=== PATIENT | female | born 1940 | race Caucasian/White ===

== ENCOUNTER 2017-01-31 00:39 | Observation (INO) | payer MEDICARE, BC ==
[2017-01-31 01:28] LABS: #Eosinphils 0.1 thou/uL (0.0-0.7); #Lymphocytes 0.6 thou/uL (1.20-3.40); #Monocytes 0.7 thou/uL (0.11-0.59); #Neutrophils 9.6 thou/uL (1.40-6.50); %Basophils 0.2 % (0.0-1.0); %Eosinophils 1.3 % (0.0-10.0); %Lymphocytes 5.6 % (21.0-51.0); %Monocytes 6.7 % (0.0-10.0); Hematocrit 36.9 % (36.0-47.0); Mean Platelet Volume 7.2 fL (7.4-10.4); Red Blood Cell (RBC) Count 4.02 mill/uL (4.20-5.40); White Blood Cell (WBC) Count 11.1 thou/uL (4.8-10.8)
[2017-01-31 01:39] LABS: ALT (SGPT) 11 U/L (8-55); AST (SGOT) 15 U/L (5-34); Alkaline Phosphatase 99 U/L (40-150); Anion Gap 14 mmol/L (10-20); BUN (Urea Nitrogen) 38 mg/dL (9.8-20.1); Bilirubin, Total 0.4 mg/dL (0.2-1.2); Calc. Creatinine Clearance 0 mL/min (70-130); Calcium 9.5 mg/dL (7.8-10.44); Carbon Dioxide 22 mmol/L (23-31); Chloride 105 mmol/L (98-107); Estimated GFR-MDRD 24; Globulin 3.2 g/dL (2.4-3.5); Protein, Total 6.9 g/dL (6.0-8.3)
[2017-01-31] MEDS ORDERED: Metoclopramide HCl 10 MG/2 ML VIAL ONE (02:30)
[2017-01-31] MEDS ORDERED: Acetaminophen 500 MG TAB ONE (02:30)
[2017-01-31 02:34] LABS: Troponin I 0.028 ng/mL (< 0.028)
[2017-01-31 04:42] LABS: Bilirubin Negative (Negative); Blood, Urine Negative (Negative); Glucose, Urine (Dipstick) Negative (Negative); Ketone, Urine Negative (Negative); Nitrite Negative (Negative); Protein, Urine (Dipstick) Negative (Neg-Trace); Urobilinogen 0.2 mg/dL (0.2-1.0)
[2017-01-31 04:44] LABS: Bacteria/HPF None Seen HPF (None Seen); Squamous Epithelial 0-3 HPF (0-3); WBC/HPF 21-50 HPF (0-3)
[2017-01-31 05:02] LABS: Hyaline Casts/LPF NONE SEEN LPF (0-3 Hyaline); RBC/HPF 0-3 HPF (0-3)
[2017-01-31] MEDS ORDERED: Ondansetron HCl/PF 4 MG/2 ML Vial IVP PRN (05:53)
[2017-01-31] MEDS ORDERED: Acetaminophen 325 MG TAB PO PRN (05:53)
[2017-01-31] MEDS ORDERED: Ondansetron ODT 4 MG TAB SL PRN (05:53)
[2017-01-31 05:56] VITALS: BMI 22.6
[2017-01-31] MEDS ORDERED: Insulin Regular 300 UNITS/3 ML VIAL SC PRN (08:26)
[2017-01-31] MEDS ORDERED: Dextrose 50% Abboject 50 ML SYRINGE IVP PRN (08:26)
[2017-01-31] MEDS ORDERED: Dextrose 5% in Water 1,000 ML IV PRN (08:26)
--- NOTE | 2017-01-31 08:27 | RAD ---
PORTABLE AP CHEST RADIOGRAPH: Date: 01-31-17 History: Hypertension with nausea and vomiting. Comparison: 05-17-16 FINDINGS: Post-surgical changes related to CABG again noted. Cardiac silhouette is magnified by projection but stable in size. There is mild increase in interstitial densities at the left lung base, probably rela naina to either mild scarring or atelectasis. Linear density is seen at the right lung base, but this f elt to be artifactual related to soft tissue density. Apical pleural and parenchymal scarring is agai n present. Interstitial prominence and vascular congestion on the prior exam does appear less promine nt. IMPRESSION: 1. Atelectasis versus scarring at the left lung base. Otherwise, no acute cardiopulmonary process. POS: [facility]
[2017-01-31] MEDS ORDERED: Potassium Chloride 20 MEQ TAB PO SCH (08:30)
--- NOTE | 2017-01-31 08:58 | HP ---
REASON FOR ADMISSION: Hypertension. HISTORY OF PRESENT ILLNESS: This is a pleasant 76-year-old female with history of multiple medical p roblems to include hypertension, diabetes, and chronic renal insufficiency. She presents with a 1-2 week history of elevated blood pressure. She has been in contact with Nancy Kang' office where her medication had been adjusted accordingly. She states that she will be a wakened at night when she has a headache. She will then take her blood pressure where it will be as high as 200. Then shortly after taking a clonidine it will go down into the 170s. She states she h as been battling this for the last 2 weeks. She has felt extremely tired and weak and also over the last 2 weeks as well. She denies any salt intake as well. She denies any chest, arm or back pain. She also denies any syncopal or near syncopal episodes. She has been quite frustrated as she does no t like feeling bad, especially over the holidays. She came to the hospital after she had a severe he adache with her blood pressure over 200 and began having nausea and vomiting. PAST MEDICAL HISTORY: 1. Diverticulitis. 2. Type 2 diabetes. 3. Gout. 4. Dyslipidemia. 5. Gastroesophageal reflux disease. 6. Chronic obstructive pulmonary disease. 7. History of myocardial infarction in the past. PAST SURGICAL HISTORY: 1. AC bypass in the past. 2. History of cholecystectomy in the past. ALLERGIES: SULFA, CIPRO, LEVAQUIN and PENICILLIN. MEDICATIONS: 1. Januvia 50 mg every day. 2. Spiriva daily. 3. Triamterene/hydrochlorothiazide 37.5/25 one tab daily. 4. Allopurinol 300 mg daily. 5. Norvasc 5 mg b.i.d. 6. Aspirin 325 mg daily. 7. Clonidine 0.1 mg q.6 hours. 8. Stool softener, docusate 100 mg daily. 9. Iron 45 mg daily. 10. Intuniv 2 mg b.i.d. 11. Hydralazine 25 mg t.i.d. 12. DuoNeb 3 mL q.i.d. 13. Prilosec 40 mg every day. 14. Crestor 10 mg every night. SOCIAL HISTORY: She lives in [place]. She smoked for 40 years. She does not drink alcohol. FAMILY HISTORY: Positive for diabetes and hypertension. REVIEW OF SYSTEMS: GENERAL: Admits to weakness, fatigue, no fever or chills. HEENT: No diplopia, amaurosis fugax, tinnitus, sore throat or hoarseness. CARDIOVASCULAR: No chest or arm pain. PULMONARY: No PE, cough or hemoptysis. GASTROINTESTINAL: No GI bleed, constipation or diarrhea. GENITOURINARY: No dysuria, nocturia, oliguria or polyuria. ENDOCRINE: No polyphagia, polydipsia or heat or cold intolerance. MUSCULOSKELETAL: Admits to arthralgias. No lupus or myopathy. NEUROLOGIC: No history of TIA or seizure. All other systems are negative. PHYSICAL EXAMINATION: GENERAL: Pleasant female who appears to be in no acute distress. VITAL SIGNS: Her blood pressure now is 180/80, pulse 60, respiration rate 18. She is afebrile. NECK: Supple with no increased JVP or carotid bruit. Carotid had good upstroke with no thyromegaly. COR: Regular rate and rhythm. No S3, S4. CHEST: Symmetrical with a few scattered wheezing. ABDOMEN: Soft, nontender with normoactive bowel sounds. There is no bruit or organomegaly. EXTREMITIES: No edema or cyanosis. She had palpable pedal pulses. SKIN: There is no evidence of ulcers lesion, or rash. NEUROLOGIC: She has equal hand grasp, toe wiggle bilateral. PSYCHIATRIC: She is alert and oriented to person, place, and time. LABORATORY DATA: Showed a potassium of 3.2, BUN 38, creatinine 2.4. BNP is 1032.9, white blood cell 11.1, H&H 12.3 and 36.9. Chest x-ray is pending. ASSESSMENT: 1. Hypertension. 2. Headache secondary to #1. 3. Chronic obstructive pulmonary disease. 4. Diabetes. 5. Chronic renal insufficiency. 6. Hypokalemia. 7. Multiple medical problems. PLAN: 1. The patient will be admitted where Dr. August will be asked to see the patient in consultation for c hronic renal insufficiency. 2. We will ask Dr. Kang to see the patient in consultation from hypertension. 3. We will follow up with lab in the morning. 4. We will check blood sugars a.c. and at bedtime. 5. We will replace her potassium. All questions answered to the patient's satisfaction.
[2017-01-31] MEDS ORDERED: Alogliptin 6.25 MG TAB PO SCH (09:00)
--- NOTE | 2017-01-31 09:18 | CON ---
DATE OF CONSULTATION: 01/31/2017 SERVICE: Renal Medicine. HISTORY OF PRESENT ILLNESS: Ms. Berman is a 76-year-old white female who was admitted for labile hypertension. The patient tells me the last several days, her blood pressure has been going up and d own. Adjustment with her blood pressure medications have already been done recently by her Cardiolog ist. We are now being consulted for labile hypertension as well as for her chronic renal failure. REVIEW OF SYSTEMS: Positive for headache and nausea. No diarrhea, no syncopal episode, no abdominal pain, no productive cough, no fever or chills, no dysuria. Appetite decreased, energy level is decr eased. Occasional joint pains. No new skin rash, no shortness of breath. No decreased hearing, no hematochezia, no melena, no hematemesis, no hemoptysis, no new skin rash. MEDICATIONS: Includes the following: Hydralazine 25 mg p.o. t.i.d. She is on amlodipine 5 mg p.o. b.i.d., Imdur 30 mg 1 tab daily, Clonidine 0.1 mg tab q.6 hours, Maxzide? PAST MEDICAL HISTORY: 1. 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 2. Longstanding hypertension. 3. Status post diverticulitis. 4. Type 2 diabetes mellitus?. 5. Gout. 6. Hyperlipidemia. 7. COPD. 8. GERD. PAST SURGICAL HISTORY: 1. Status post cardiac catheterization. 2. Status post hysterectomy. 3. Status post CABG. 4. Status post upper GI endoscopy. 5. Status post colonoscopy. 6. Status post open cholecystectomy. 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 Two children. Smoked for 40 years, 1 pack a day. Alcohol none. No IV drug abuse. Status post blood transfusion. FAMILY HISTORY: No family history of ESRD. ALLERGIES: SULFA, CIPRO and LEVAQUIN. TRAUMA: None. IMMUNIZATIONS: Up to date. HOSPITALIZATIONS: Please see past medical history. PHYSICAL EXAMINATION: VITAL SIGNS: Blood pressure is 188/83, heart rate 65, respiratory rate 18, temperature 98.7. GENERAL: Noted to be awake, alert, not in respiratory distress. SKIN: Adequate turgor. HEENT: She has pinkish conjunctivae, anicteric sclerae. NECK: No neck mass, no carotid bruits, no JVD. CHEST: No deformities. LUNGS: Clear breath sounds. No wheezing, no crackles. HEART: Normal sinus rhythm. No murmur, no gallops or rubs. ABDOMEN: Globular, soft, nontender, no masses. EXTREMITIES: No edema, no deformities. MEDICATIONS: Of 01/31/2017 was reviewed. LABORATORY DATA: Of 01/31/2017, white count 11.1, hemoglobin 12.3, sodium 138, potassium 3.2, chlori de 105, carbon dioxide 22, BUN 38, creatinine 2.04, glucose 134, calcium 9.5, AST 15, ALT 11. BNP is 1032. X-RAY FINDINGS: Chest x-ray is currently pending. ASSESSMENT AND PLAN: 1. Labile hypertension. Agree with current blood pressure medications. We will add low dose minoxi dil at 2.5 mg tab at bedtime. Please note, previous workup for hypertension was said to have been ne gatmiguel in the past. 2. Chronic renal failure - creatinine is near baseline. Her creatinine of 2.01 when compared to las t visit at the clinic is only minimally elevated. If needed, we can diurese this patient since I thi nk she would tolerate this. 3. Headache, most likely from labile hypertension. Continue to optimize blood pressure control. For the moment, I agree with current management.
[2017-01-31] MEDS: Ferrous Sulfate 325 MG TAB PO SCH (09:26)
[2017-01-31] MEDS: Amlodipine 5 MG TAB PO SCH ×2 (09:26→20:08)
[2017-01-31] MEDS: Triamterene/Hydrochlorothiazide 37.5 mg/25 mg Tablet PO SCH (09:26)
[2017-01-31] MEDS: Aspirin 325 MG TAB PO SCH (09:26)
[2017-01-31] MEDS: hydrALAZINE 25 MG TAB PO SCH ×3 (09:26→20:09)
[2017-01-31] MEDS: guanFACINE HCl 1 MG TAB PO SCH ×2 (09:27→20:15)
[2017-01-31] MEDS: Docusate 100 MG CAP PO SCH (10:53)
--- NOTE | 2017-01-31 11:45 | CON ---
DATE OF CONSULTATION: 01/31/2017 INDICATION FOR CONSULTATION: This is a 76-year-old female with poorly controlled hypertension and mu ltiple other medical problems. HISTORY: This is a 76-year-old female who was just recently seen by me in the office on 01/23/2017. She has been having recently for the last several months, worsening of her blood pressure problems. We have tried various medications. Her last medication we tried was to increase her nitrates. She was unable to tolerate this due to severe headaches. She presented to the hospital early this derian brown with worsening of her headaches and some blood pressures in the 200s, it becomes worse when she is lying down. She has been seen in the office on several occasions with poorly controlled hypertension . We have tried various medications and to little or no avail. Sometimes the blood pressure will be under much better control during the daytime. It seems to be worse when she lies down at night. At this time, she is not having any chest discomfort, but she says sometimes she does have tightness wh en the blood pressure becomes extremely elevated in the 200 range. At this time, her blood pressure still remains in the 180 systolic and Nephrology has been consulted and Hytrin has already been initi ated. At this time, she denies any significant chest pain or shortness of breath. She has not notic ed any significant changes. She does have a history of renal insufficiency, which has been relativel y stable. Her creatinine is 2.04. Back in 2015 the creatinine was 1.1 and then in May it was 1.3 in 05/2016. In 07/2016 it was 1.7 and then in 12/2016 it was 1.83 and today has increased up to 2.04 . Her BNP was elevated at 1032. Chest x-ray shows only some mild congestion. She was admitted due to poorly controlled hypertension with severe headaches, nausea and vomiting. PAST MEDICAL HISTORY: Rather extensive. She has a history of coronary artery disease and bypass hang stanislav in 2007. She has had history of chronic kidney disease, worsening in the last year. She has a history of colitis, history of type 2 diabetes, history of peptic ulcer disease, history of hypertens ion. She has had a cholecystectomy, a hysterectomy. She has a history of tobacco abuse. She has hi story of COPD, history of myocardial infarction in the past. ALLERGIES: She is allergic to CEFIXIME, SUPRAX, CALCITRIOL, SULFA or any SULFONAMIDE ANTIBIOTICS, HY DROCHLOROTHIAZIDE, LOSARTAN. She has problems with POTASSIUM. She has a history of intolerances to CIPRO, PENICILLIN and LEVAQUIN. MEDICATIONS PRIOR TO ADMISSION: Escitalopram, vitamin D3, benzonatate capsules, Atrovent inhaler, Ve ntolin inhaler and ondansetron 4 mg tablets, Feosol, omeprazole, Januvia, Guanfacine, Trintellix, asp irin 325 mg a day, Spiriva inhaler, ProAir, Crestor 10 mg a day, nitroglycerin sublingual for chest d iscomfort, triamterene/hydrochlorothiazide, alprazolam, Clonidine 0.2 mg b.i.d., amlodipine 5 mg b.i. d., isosorbide mononitrate 30 mg, this was increased up to 60 and now back down to 30 after she compl ained of headaches. SOCIAL HISTORY: Her father of myocardial infarction and mother had bypass surgery. SOCIAL HISTORY: She is . She has children who are alive and well. She smoked in the past, b ut stopped. She has no alcohol use. REVIEW OF SYSTEMS: She denies any new HEENT complaints except for the headaches which have been cons istent with the hypotension. She has no new pulmonary complaints, no GI complaints except for the na usea associated with headaches. No complaints. No musculoskeletal complaints. Sometimes she has leg swelling, but this has now resolved, it usually goes down overnight. She had no other neurologi juan complaints. She denied any hemoptysis or hematemesis. She did complain of some low-grade fever over the last week. PHYSICAL EXAMINATION: GENERAL: Reveals an elderly lady who is in no acute distress. VITAL SIGNS: Blood pressure 180/83. She is afebrile, also heart rate 65 and regular, respiratory ra te 18. HEENT: Unremarkable. Carotid pulses are present. I do not hear any significant bruits. There is n o obvious JVD. CHEST: Clear to auscultation. I did not hear any rales, rhonchi or wheezing. CARDIOVASCULAR: Exam reveals a regular rate and rhythm. She has a systolic murmur over the aortic a savana compatible with likely aortic valve sclerosis. She did not have any heaves, thrills or bruits. She also has a systolic murmur at the apex. ABDOMEN: Soft and nontender. Positive bowel sounds are present. No bruits were noted. No femoral pulses are present. EXTREMITIES: Showed no clubbing, cyanosis or edema. Pedal pulses are present. NEUROLOGIC: The patient appears to be intact. LABORATORY AND DATA: Shows a creatinine 2.04, potassium 3.2. WBC is 11.1, hemoglobin 12.3. Sodium is 138. Her BNP was 1032. Cardiac enzymes are negative. IMPRESSION: 1. Poorly controlled hypertension or hypertensive urgency with associated headaches, nausea, and vom iting. We will ask for assistance of Dr. August. There has been some mention that she had a workup in the past for the hypertension. I do not see any records in the hospital that would indicate that and this may have been done as an outpatient. I will discuss this with Dr. August if he has any informatio n in his office to determine whether or not she has any problems with perhaps renal artery stenosis, whether or not this has been evaluated, whether it may need to be reevaluated or revisited to see whe ther or not she has any renal artery stenosis, but I could not hear any abdominal bruits. 2. Coronary artery disease. This appears to be stable at this time. She denies any significant stephan st discomfort and EKG does not indicate any abnormalities at this time. 3. Diabetes. This is under good control at this time. We will continue the present medications. 4. Chronic kidney disease, will also be dealt with by the message clerk. 5. Chronic obstructive pulmonary disease. She will continue her nebulizer treatments. 6. History of gastroesophageal reflux disease. This appears also to be stable at this time. 7. History of tobacco abuse. She no longer smokes. We will continue to follow the patient with you. We will continue to try to adjust medications. We will leave the hypertension up to the discretion of Dr. August who will deal with her hypertension and h er chronic kidney disease. At this time, her BNP is elevated, most likely this is due to diastolic d ysfunction. I will review her most recent echocardiogram, if one has not been done recently, we may need to reorder an echocardiogram for evaluation of possible diastolic dysfunction and also to evalua te the left ventricular systolic function.
--- NOTE | 2017-01-31 12:01 | CT ---
PRELIMINARY REPORT/[facility]/EMERGENCY AFTER HOURS PROCEDURE: EXAM: CT Head Without Intravenous Contrast CLINICAL HISTORY: 76 years old, female; Pain; Headache; Headache not specified; Patient HX: 76 yo f presents to ed C/O hypertension. Pt states her BP has been out of control for past 3 weeks with significant elevations t o 180s-200s systolic and 100s diastolic. Pt states she is taking half a tab of Clonidine whenever her BP is really elevated per doctor's orders. Pt reports dizziness, headaches, increasing weakness. Als o reports nausea for past couple days which worsened today. States that she started vomiting this binh viviane. Pt tried taking half clonidine tonight which she did not hold down. Denies blurry vision, denie s double vision. Pt states she was recently treated for uti but has continued to have fevers. Family states that she has tried to see multiple doctors for her high BP problem recently. Pt took 2 extra s trength tylenol at 1900 this evening with no relief TECHNIQUE: Axial computed tomography images of the head/brain without intravenous contrast. All CT scans at this facility use one or more dose reduction techniques, viz.: automated exposure control; ma/kV adjustme nt per patient size (including targeted exams where dose is matched to indication; i.e. head); or ite rative reconstruction technique. COMPARISON: No relevant prior studies available. FINDINGS: Brain: Mild volume loss. Chronic right frontal infarction No hemorrhage. Moderate white matter diseas e. No edema. Ventricles: Unremarkable. No ventriculomegaly. Bones/joints: Unremarkable. No acute fracture. Soft tissues: Unremarkable. Sinuses: Unremarkable as visualized. No acute sinusitis. Mastoid air cells: Unremarkable as visualized. No mastoid effusion. IMPRESSION: No intracranial hemorrhage.Please see discussion above. Thank you for allowing us to participate in the care of your patient. Dictated and Authenticated by: Kike Pyle MD 01/31/2017 2:53 AM Central Time ([place] & [place]) FINAL REPORT NONCONTRAST HEAD CT: Date: 01/31/17 COMPARISON: 12/17/15. HISTORY: Headache. TECHNIQUE: Noncontrast head CT is performed from skull base to skull vertex. FINDINGS: This report is in agreement with the preliminary report by Pilar. No acute intracranial process. Age-a ppropriate atrophy. Chronic small vessel ischemic changes are identified. POS: [facility]
[2017-01-31] MEDS: cloNIDine 0.1 MG TAB PO SCH ×2 (13:53→17:11)
[2017-01-31] MEDS ORDERED: Minoxidil 2.5 MG TAB PO SCH (18:45)
[2017-01-31] MEDS: Minoxidil 2.5 MG TAB PO SCH (20:04)
[2017-01-31] MEDS: Rosuvastatin 10 MG TAB PO SCH (20:08)
[2017-01-31] MEDS: Allopurinol 300 MG TAB PO SCH (20:08)
[2017-01-31] MEDS: Alogliptin 6.25 MG TAB PO SCH (20:15)
[2017-02-01] MEDS: cloNIDine 0.1 MG TAB PO SCH ×5 (00:09→23:50)
[2017-02-01 04:25] LABS: #Eosinphils 0.3 thou/uL (0.0-0.7); #Lymphocytes 1.7 thou/uL (1.20-3.40); #Monocytes 0.8 thou/uL (0.11-0.59); #Neutrophils 5.2 thou/uL (1.40-6.50); %Basophils 0.5 % (0.0-1.0); %Eosinophils 4.1 % (0.0-10.0); %Lymphocytes 20.9 % (21.0-51.0); %Monocytes 9.9 % (0.0-10.0); Hematocrit 33.3 % (36.0-47.0); Mean Platelet Volume 6.9 fL (7.4-10.4); Red Blood Cell (RBC) Count 3.63 mill/uL (4.20-5.40); White Blood Cell (WBC) Count 8.1 thou/uL (4.8-10.8)
[2017-02-01 04:39] LABS: ALT (SGPT) 12 U/L (8-55); AST (SGOT) 16 U/L (5-34); Alkaline Phosphatase 80 U/L (40-150); Anion Gap 12 mmol/L (10-20); BUN (Urea Nitrogen) 35 mg/dL (9.8-20.1); Bilirubin, Total 0.3 mg/dL (0.2-1.2); Calc. Creatinine Clearance 26 mL/min (70-130); Calcium 9.1 mg/dL (7.8-10.44); Carbon Dioxide 25 mmol/L (23-31); Chloride 104 mmol/L (98-107); Estimated GFR-MDRD 26; Globulin 2.9 g/dL (2.4-3.5); Protein, Total 6.1 g/dL (6.0-8.3)
--- NOTE | 2017-02-01 08:45 | PRG ---
DATE OF SERVICE: 02/01/2017 SUBJECTIVE: Ms. Berman is a 76-year-old white female who was admitted for labile hypertension. W e were consulted for followup of this hypertension and her chronic renal failure. Creatinine is slig htly improved this morning. I added minoxidil 2.5 mg tab once daily. Previously she has been on thi s medication, but she developed significant swelling. I will try her on the smallest dose. Blood pr essure is acceptable in the 170s. 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 My feeling is that this is the source of her labile hypertension. The plan is simply medical management with this patient. I do not think a nephrectomy is indicated. This morning she is feeling better. Her headache is improved after discontinuation of her Imdur. She voices no new complaints. The patient voices no chest pain or shortness of breath. PHYSICAL EXAMINATION: VITAL SIGNS: Blood pressure is 178/88 with a heart rate of 69, respiratory rate 18, pulse ox 92%. GENERAL: Noted to be awake, alert, comfortable, not in overt distress. SKIN: Adequate turgor. HEENT: Pinkish conjunctivae, anicteric sclerae. NECK: No neck mass, no carotid bruits, no JVD. CHEST: No deformities. LUNGS: Clear breath sounds. No wheezing, no crackles. HEART: Normal sinus rhythm. No murmur, no gallops or rubs. ABDOMEN: Globular, soft, nontender, no masses. EXTREMITIES: No edema, no deformities. MEDICATIONS: 02/01/2017 - Reviewed. LABORATORY: 02/01/2017 - White count 8.1, hemoglobin 10.8, sodium 137, potassium 3.7, chloride 104, carbon dioxide 25, BUN 35, creatinine 1.91, glucose 135, AST 16, ALT 12, albumin 3.2. ASSESSMENT AND PLAN: 1. Labile hypertension, much improved. Continue current antihypertensive regimen. Continue minoxid il. If needed, we can always increase it to a 5 mg tab once a day. Please note that the previous im aging of the kidneys shows left atrophic kidney, which may be the source of the lability of her high blood pressure. 2. Chronic renal failure - stable, secondary to hypertensive nephropathy. No indication for any ivette lytic intervention. Recheck base met and CBC in a.m.
--- NOTE | 2017-02-01 09:55 | PDOC.CTH ---
<Will Kang - Last Filed: 02/01/17 18:10> Cardiology Progress Note - Objective Vital Signs Temp Pulse Resp BP BP Pulse Ox 02/01/17 17:07 178/88 H 02/01/17 15:08 97.5 F L 82 20 176/79 H 94 L 02/01/17 14:58 75 02/01/17 14:52 75 16 96 02/01/17 12:23 178/88 H 02/01/17 10:21 72 16 95 02/01/17 10:00 71 02/01/17 08:47 98.4 F 71 20 02/01/17 08:00 98.4 F 71 20 182/80 H 92 L 02/01/17 06:40 69 18 92 L Admit Weight 140 lb 4.8 oz Weight 141 lb 6.4 oz 01/31/17 02/01/17 02/02/17 06:59 06:59 06:59 Intake Total 1405 500 Output Total 1150 750 Balance 255 -250 - Labs Result Diagrams: 02/01/17 04:03 02/01/17 04:03 Troponin/CKMB CK-MB (CK-2) 0.9 ng/mL (0-6.6) 01/31/17 01:08 Troponin I 0.028 ng/mL (< 0.028) 01/31/17 01:08 - Assessment/Plan Pt. seen and eval. I agree with the A/P by the BEAUTY ARTIST. She is feeling better off the nitrates. renal function is minimally changed. <Danii De Paz - Last Filed: 02/02/17 09:10> Cardiology Progress Note - Subjective The pt seen and examined. No overnight events. No cardiac complaints. No headache since her Imdur was d/xochitl. - Objective Vital Signs Temp Pulse Resp BP BP Pulse Ox 02/01/17 08:47 98.4 F 71 20 02/01/17 08:00 98.4 F 71 20 182/80 H 92 L 02/01/17 06:40 69 18 92 L 02/01/17 05:41 178/88 H 02/01/17 04:15 98.8 F 82 20 178/88 H 92 L 02/01/17 01:12 97 02/01/17 00:58 172/64 H 02/01/17 00:10 172/78 H 02/01/17 00:09 172/78 H 01/31/17 23:30 99.4 F 85 16 192/85 H 93 L Admit Weight 140 lb 4.8 oz Weight 141 lb 6.4 oz 01/31/17 02/01/17 02/02/17 06:59 06:59 06:59 Intake Total 1405 Output Total 1150 Balance 255 - Physical Examination General/Neuro: alert & oriented x3 Neck: no JVD present Lungs: CTA (diminished at bases) Heart: RRR Abdomen: soft Extremities: other: (No edemas) - Labs Result Diagrams: 02/02/17 05:01 02/02/17 05:01 Troponin/CKMB CK-MB (CK-2) 0.9 ng/mL (0-6.6) 01/31/17 01:08 Troponin I 0.028 ng/mL (< 0.028) 01/31/17 01:08 - Assessment/Plan 1. HTN - Stable with current medication; No more headache after Imdur was d/xochitl ; Keep SBP < 177; defer to Rag Sorter 2. CKD 2ndary to Lt atrophic kidney- Cr level slightly improved today; managed by Rag Sorter 3. CAD with Hx of CABG in 2007 - stable 4. DM type 2 - ACHS BG check with SS Insulin 5. COPD - Stable; managed by PCP 6. GERD - stable with Protonix 40mg BID MAR reviewed *From cardiac standpoint, the pt is stable to d/xochitl to home; The pt will f/u with Dr Kang' office within 2-4wks. Thank you very much for cardiology consult request Review of Systems - Review of Systems Constitutional: reports: no symptoms reported EENTM: reports: no symptoms reported Respiratory: reports: no symptoms reported Cardiac (ROS): reports: no symptoms reported ABD/GI: reports: no symptoms reported : reports: no symptoms reported Musculoskeletal: reports: no symptoms reported
[2017-02-01] MEDS: Amlodipine 5 MG TAB PO SCH ×2 (10:00→21:25)
[2017-02-01] MEDS: Triamterene/Hydrochlorothiazide 37.5 mg/25 mg Tablet PO SCH (10:00)
[2017-02-01] MEDS: Cephalexin 250 MG CAP PO SCH ×4 (10:00→21:26)
[2017-02-01] MEDS: Aspirin 325 MG TAB PO SCH (10:00)
[2017-02-01] MEDS: Ferrous Sulfate 325 MG TAB PO SCH (10:00)
[2017-02-01] MEDS: hydrALAZINE 25 MG TAB PO SCH ×3 (10:00→21:27)
[2017-02-01] MEDS: Docusate 100 MG CAP PO SCH (10:01)
[2017-02-01] MEDS: guanFACINE HCl 1 MG TAB PO SCH ×2 (14:57→21:26)
[2017-02-01] MEDS: Allopurinol 300 MG TAB PO SCH (21:24)
[2017-02-01] MEDS: Alogliptin 6.25 MG TAB PO SCH (21:25)
[2017-02-01] MEDS: Rosuvastatin 10 MG TAB PO SCH (21:27)
[2017-02-01] MEDS: Minoxidil 2.5 MG TAB PO SCH (21:27)
[2017-02-02 05:25] LABS: #Basophils 0.1 thou/uL (0.0-0.2); #Eosinphils 0.3 thou/uL (0.0-0.7); #Lymphocytes 1.4 thou/uL (1.20-3.40); #Monocytes 0.7 thou/uL (0.11-0.59); %Basophils 0.8 % (0.0-1.0); %Eosinophils 4.8 % (0.0-10.0); %Lymphocytes 21.3 % (21.0-51.0); %Monocytes 11.1 % (0.0-10.0); Hematocrit 32.2 % (36.0-47.0); Mean Platelet Volume 6.9 fL (7.4-10.4); Red Blood Cell (RBC) Count 3.51 mill/uL (4.20-5.40); White Blood Cell (WBC) Count 6.5 thou/uL (4.8-10.8)
[2017-02-02 05:39] LABS: Anion Gap 9 mmol/L (10-20); BUN (Urea Nitrogen) 34 mg/dL (9.8-20.1); Calc. Creatinine Clearance 26 mL/min (70-130); Calcium 9.5 mg/dL (7.8-10.44); Carbon Dioxide 28 mmol/L (23-31); Chloride 104 mmol/L (98-107); Estimated GFR-MDRD 26
[2017-02-02] MEDS: cloNIDine 0.1 MG TAB PO SCH (05:48)
[2017-02-02 08:24] VITALS: BP 136/65; TEMP 98.9
[2017-02-02] MEDS ORDERED: Potassium Chloride 20 MEQ TAB PO SCH (09:00)
--- NOTE | 2017-02-02 09:05 | PDOC.CTH ---
Cardiology Progress Note - Subjective The pt seen and examined. No overnight events. No cardiac complaints. She feels much better today and ready to go home - Objective Vital Signs Temp Pulse Resp BP BP Pulse Ox 02/02/17 07:44 98.9 F 72 16 136/65 92 L 02/02/17 06:35 94 L 02/02/17 06:33 86 16 94 L 02/02/17 05:48 180/78 H 02/02/17 03:35 98.7 F 68 16 148/68 H 94 L 02/01/17 23:51 98.8 F 75 16 168/75 H 94 L 02/01/17 23:50 168/75 H 02/01/17 21:27 85 198/86 H 02/01/17 21:25 98.5 F 85 20 198/86 H Admit Weight 140 lb 4.8 oz Weight 141 lb 10.352 oz 02/01/17 02/02/17 02/03/17 06:59 06:59 06:59 Intake Total 1405 500 Output Total 1150 1350 Balance 255 -850 - Physical Examination General/Neuro: alert & oriented x3 Neck: no JVD present Lungs: CTA Heart: RRR Abdomen: soft Extremities: other: (No edemas) - Labs Result Diagrams: 02/02/17 05:01 02/02/17 05:01 Troponin/CKMB CK-MB (CK-2) 0.9 ng/mL (0-6.6) 01/31/17 01:08 Troponin I 0.028 ng/mL (< 0.028) 01/31/17 01:08 - Assessment/Plan 1. HTN - Well controlled with current medication; No more headache after Imdur was d/xochitl; Keep SBP < 177; defer to [facility] Inspector 2. 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 CAD with Hx of CABG in 2007 - stable 4. DM type 2 - ACHS BG check with SS Insulin 5. COPD - Stable; managed by PCP 6. GERD - stable with Protonix 40mg BID MAR reviewed Review of Systems - Review of Systems Constitutional: reports: no symptoms reported EENTM: reports: no symptoms reported Respiratory: reports: no symptoms reported Cardiac (ROS): reports: no symptoms reported ABD/GI: reports: no symptoms reported : reports: no symptoms reported Musculoskeletal: reports: no symptoms reported Skin: reports: no symptoms reported
--- NOTE | 2017-02-02 09:12 | PRG ---
DATE OF SERVICE: 02/02/2017 SUBJECTIVE: Ms. Berman is a 76-year-old white female with chronic renal failure and labile hypert ension. She was seen by the Renal Service for her acute kidney injury and labile hypertension. I di d discuss the case at length with the patient about possible etiology of the labile hypertension. Pl ease note she has a left atrophic kidney. In addition, during this hospitalization, we start minoxid il 2.5 mg tab once a day. Currently, she is asymptomatic. She denies any chest pain or shortness of breath. OBJECTIVE: VITAL SIGNS: Blood pressure 136/65, heart rate 72, respiratory rate 16, temperature 98.9, and pulse ox 92%. GENERAL: Noted to be awake, alert, supine, comfortable, not in distress. SKIN: Adequate turgor. HEENT: Pinkish conjunctivae, anicteric sclerae. NECK: No neck mass, no carotid bruits, no JVD. CHEST: No deformities. LUNGS: Clear breath sounds. No wheezing, no crackles. HEART: Normal sinus rhythm. No murmur, no gallops, no rubs. ABDOMEN: Globular, soft, nontender. No masses. EXTREMITIES: No edema. MEDICATIONS: 02/02/2017 was reviewed. LABORATORY DATA: On 02/02/2017 - Hemoglobin 10.6. Sodium 138, potassium 3.4, chloride 104, carbon d ioxide 28, BUN 34, creatinine 1.87. GFR 26 mL per minute. Calcium 9.5. ASSESSMENT AND PLAN: 1. Labile hypertension, much improved. Continue current antihypertensive regimen including minoxidi l. 2. Acute kidney injury/chronic renal failure, stabilizing renal function. Creatinine noted at 1.87, which is at baseline. She is currently at stage 4 chronic renal failure. I agree with current huma babcock. I agree for discharge anytime. The patient will follow up at the [facility].
[2017-02-02] MEDS: Triamterene/Hydrochlorothiazide 37.5 mg/25 mg Tablet PO SCH (09:28)
[2017-02-02] MEDS: guanFACINE HCl 1 MG TAB PO SCH (09:28)
[2017-02-02] MEDS: Aspirin 325 MG TAB PO SCH (09:29)
[2017-02-02] MEDS: Docusate 100 MG CAP PO SCH (09:29)
[2017-02-02] MEDS: Amlodipine 5 MG TAB PO SCH (09:29)
[2017-02-02] MEDS: Cephalexin 250 MG CAP PO SCH (09:29)
[2017-02-02] MEDS: hydrALAZINE 25 MG TAB PO SCH (09:29)
[2017-02-02] MEDS: Ferrous Sulfate 325 MG TAB PO SCH (09:30)
--- NOTE | 2017-02-02 13:04 | DIS ---
FINAL DIAGNOSES: 1. Hypertension urgency. 2. Intractable migraine secondary to above. 3. Chronic obstructive pulmonary disease. 4. Chronic renal insufficiency. 5. Anxiety disorder. COMPLICATIONS: None. PROCEDURES: None. CONSULTANTS: 1. Dr. August 2. Dr. Kang. HOSPITAL COURSE: This is a pleasant female who has a history of multiple medical problems as indicat ed in the H&P. She presents with over a 1 week history of elevated blood pressure as high as 200 at home. She woke up with a migraine headache and checked her blood pressure and it did remain high 1 e vening. Therefore, presented to the hospital for further evaluation and treatment. She was seen by a team of consultants, Dr. August and Dr. Kang. Her home medications were adjusted accordingly. The marcy oneal also had a chest x-ray which was unremarkable. She had a brain CT upon arrival to the emergenc y room that showed no intracranial bleed, otherwise unremarkable. The patient did have some dysuria also, but a urine culture was negative for any sort of bacteria. The patient also had a MRA of her k idneys ordered; however, that was not done for some reason. The patient also had to be started on mi noxidil as her blood pressure remained high during the hospitalization. After giving the minoxidil, her blood pressure did come down beautifully from 180s to the 130s. The patient's potassium had to b e replenished during the hospitalization from 3 at the lowest. Her blood sugar remained anywhere fro m 130-147. Her white blood cell count was minimally elevated at 11.1, upon dismissal it was 6.5. He r H&H was 10.6 and 32.2, her platelet count was normal. The patient's hospital course was unremarkab le as her blood pressure was well controlled. Her anxiety was good. Her potassium was replenished. She had no more headache. She did want to go home and she would do the MRA if not done inpatient. DISCHARGE MEDICATIONS: 1. Hydralazine 50 mg t.i.d. 2. Minoxidil 2.5 mg every day. 3. Tenex 2 mg b.i.d. 4. Allopurinol 300 mg daily. 5. Norvasc 5 mg b.i.d. 6. Aspirin 325 mg daily. 7. Clonidine 0.1 mg q.6h. p.r.n. 8. Stool softener daily. 9. Iron 140 mg every day. 10. Intuniv 2 mg b.i.d. 11. Albuterol DuoNebs t.i.d. 12. Prilosec 40 mg b.i.d. 13. Crestor 10 mg every day. 14. Januvia 50 mg every day. 15. Spiriva inhaler b.i.d. 16. Triamterene/hydrochlorothiazide 37.5/25 every day. FOLLOWUP: She will follow up with Chaya or Dr. Hartman in 1 week. She will also follow up with ot er consultants as indicated. The patient's diet will be a renal/controlled fat/diabetic diet. Her activities were as tolerated. She will also continue checking her blood pressure at home and keeping a daily log and bring that in when she came to the office.
== END 2017-02-02 10:47 | disposition home or self-care (01) ==
LOC: ERS 00:39 → 2SW 04:01
PROVIDERS: ADMIT Specialist; ATTEND Specialist
DX: I16.0 Hypertensive urgency (principal); E11.22 Type 2 diabetes mellitus with diabetic chronic kidney disease; I12.9 Hypertensive chronic kidney disease with stage 1 through stage 4 chronic kidney disease, or unspecified chronic kidney disease; N18.2 Chronic kidney disease, stage 2 (mild); I25.10 Atherosclerotic heart disease of native coronary artery without angina pectoris; J44.9 Chronic obstructive pulmonary disease, unspecified; K21.9 Gastro-esophageal reflux disease without esophagitis; E87.6 Hypokalemia; M10.9 Gout, unspecified; E78.5 Hyperlipidemia, unspecified; I25.2 Old myocardial infarction; F41.9 Anxiety disorder, unspecified; G43.819 Other migraine, intractable, without status migrainosus; Z79.82 Long term (current) use of aspirin; Z79.84 Long term (current) use of oral hypoglycemic drugs; Z79.899 Other long term (current) drug therapy; Z88.1 Allergy status to other antibiotic agents; Z88.2 Allergy status to sulfonamides; Z88.0 Allergy status to penicillin; Z88.5 Allergy status to narcotic agent; Z95.1 Presence of aortocoronary bypass graft; Z90.710 Acquired absence of both cervix and uterus; Z90.49 Acquired absence of other specified parts of digestive tract; Z98.890 Other specified postprocedural states; Z87.11 Personal history of peptic ulcer disease; Z87.891 Personal history of nicotine dependence
CPT/HCPCS: 70450; 71010; 80048; 80053 ×2; 82553; 82962 ×3; 83880; 84484; 85025 ×3; 87086; 94640 ×4; 94760; 96365; 99285; G0378 ×2; 36415; 36416; 81003; 81015; J2765; J7620

== ENCOUNTER 2017-03-09 15:00 | Outpatient (CLI) | payer MEDICARE, BC ==
--- NOTE | 2017-03-09 15:44 | ULT ---
BILATERAL LOWER EXTREMITY VENOUS DOPPLER ULTRASOUND 03/09/17 HISTORY: Bilateral lower extremity edema and pain. TECHNIQUE: Nathan scale ultrasound with color flow and spectral doppler imaging of the deep venous systems of the lower extremities was performed bilaterally. FINDINGS: There is good flow, compression, and augmentation noted in the common femoral, femoral, deep femoral, popliteal, posterior tibial and greater saphenous veins on either side. IMPRESSION: No evidence of DVT in either lower extremity. POS: [facility]
== END 2017-03-09 15:01 | disposition home or self-care (01) ==
LOC: ULT 15:00
PROVIDERS: ATTEND Internal Medicine Nephrology
DX: M79.661 Pain in right lower leg (principal); M79.662 Pain in left lower leg; N18.9 Chronic kidney disease, unspecified
CPT/HCPCS: 36415; 80048; 93970

== ENCOUNTER 2017-05-13 08:52 | Inpatient (IN) | payer MEDICARE, BC ==
[2017-05-13 09:22] LABS: #Eosinphils 0.1 thou/uL (0.0-0.7); #Lymphocytes 0.8 thou/uL (1.20-3.40); #Monocytes 0.5 thou/uL (0.11-0.59); #Neutrophils 5.9 thou/uL (1.40-6.50); %Basophils 0.2 % (0.0-1.0); %Eosinophils 1.6 % (0.0-10.0); %Lymphocytes 10.8 % (21.0-51.0); %Monocytes 6.3 % (0.0-10.0); %Neutrophils 81.1 % (42.0-75.0); Hemoglobin 10.8 g/dL (12.0-16.0); Mean Corpuscular HGB CONC 32.6 g/dL (32.0-36.0); Mean Corpuscular Hemoglobin 28.5 pg (27.0-31.0); Mean Corpuscular Volume 87.4 fl (81.0-99.0); Mean Platelet Volume 7.7 fL (7.4-10.4); Platelet Count 197 thou/uL (130-400); Red Blood Cell (RBC) Count 3.77 mill/uL (4.20-5.40); White Blood Cell (WBC) Count 7.2 thou/uL (4.8-10.8)
[2017-05-13 09:38] LABS: ALT (SGPT) 28 U/L (8-55); AST (SGOT) 53 U/L (5-34); Alkaline Phosphatase 148 U/L (40-150); Anion Gap 15 mmol/L (10-20); BUN (Urea Nitrogen) 38 mg/dL (9.8-20.1); Bilirubin, Total 0.6 mg/dL (0.2-1.2); CK (CPK) 38 U/L (29-168); Calc. Creatinine Clearance 0 mL/min (70-130); Calcium 9.5 mg/dL (7.8-10.44); Carbon Dioxide 24 mmol/L (23-31); Chloride 99 mmol/L (98-107); Estimated GFR-MDRD 19; Globulin 3.2 g/dL (2.4-3.5); Glucose 128 mg/dL (83-110); Potassium 3.1 mmol/L (3.5-5.1); Protein, Total 7.2 g/dL (6.0-8.3); Sodium 135 mmol/L (136-145)
[2017-05-13 09:40] LABS: CKMB 1.6 ng/mL (0-6.6); Troponin I 0.085 ng/mL (< 0.028)
[2017-05-13] MEDS ORDERED: Triamterene/Hydrochlorothiazide 37.5 mg/25 mg Tablet PO SCH (10:45)
[2017-05-13] MEDS ORDERED: guanFACINE HCl 1 MG TAB PO SCH (10:45)
--- NOTE | 2017-05-13 11:16 | RAD ---
PORTABLE CHEST: Date: 05/13/17 PROVIDED CLINICAL HISTORY: Palpitations. FINDINGS: Comparison with 01/31/17. Cardiac and mediastinal silhouette is unchanged in appearance. Median sternotomy changes are seen. No focal consolidation, pleural fluid, or pneumothorax apparent. IMPRESSION: No evidence for an acute cardiopulmonary process. POS: [facility]
[2017-05-13] MEDS ORDERED: Acetaminophen 325 MG TAB PO PRN (12:47)
[2017-05-13 12:55] VITALS: BMI 21.4
[2017-05-13 13:03] LABS: Troponin I 0.105 ng/mL (< 0.028)
[2017-05-13] MEDS ORDERED: Furosemide 20 MG TAB PO PRN (13:41)
[2017-05-13] MEDS ORDERED: Ondansetron ODT 4 MG TAB PO PRN (13:44)
[2017-05-13] MEDS ORDERED: hydrALAZINE 25 MG TAB PO SCH (15:00)
[2017-05-13] MEDS: Docusate 100 MG CAP PO SCH (15:04)
[2017-05-13] MEDS: guanFACINE HCl 1 MG TAB PO SCH (15:04)
[2017-05-13] MEDS ORDERED: cloNIDine 0.1 MG TAB PO SCH (15:15)
[2017-05-13 16:29] LABS: Troponin I 0.097 ng/mL (< 0.028)
[2017-05-13] MEDS ORDERED: Zolpidem Tartrate 5 MG TAB PO PRN (19:59)
[2017-05-13] MEDS ORDERED: Minoxidil 2.5 MG TAB PO SCH (20:30)
[2017-05-13] MEDS ORDERED: Amlodipine 5 MG TAB PO SCH (20:30)
[2017-05-13] MEDS: 1/2 NS w/KCL 20 mEq 1,000 ML IV SCH (20:58)
[2017-05-13] MEDS ORDERED: Mirtazapine 30 MG TAB PO SCH (21:00)
[2017-05-13] MEDS: cloNIDine 0.1 MG TAB PO SCH (21:01)
[2017-05-13] MEDS: Famotidine 20 MG TAB PO SCH (21:01)
[2017-05-13] MEDS: Rosuvastatin 10 MG TAB PO SCH (21:01)
[2017-05-13] MEDS: hydrALAZINE 25 MG TAB PO SCH (21:01)
[2017-05-13] MEDS: Potassium Chloride 20 MEQ TAB PO SCH (21:03)
[2017-05-13] MEDS ORDERED: Amlodipine 10 MG TAB PO SCH (22:00)
--- NOTE | 2017-05-13 22:00 | HP ---
DATE OF OBSERVATION BEGAN: 05/13/2017 CHIEF COMPLAINT: On admission was palpitations and hypertensive urgency with recent epistaxis. HISTORY OF PRESENT ILLNESS: Patient is a 76-year-old female, who on the day previous had had elevate d blood pressure over 200. It began as epistaxis that could not be stopped. She said "I had never s een so much blood" and went to the emergency room in [place]. They could not get the bleeding t o stop either and arranged for her to be seen by Dr. Patel in his clinic. He was able to do rhinosc opy and cauterized the bleeding. However, since that time she has been having palpitations and her h ome blood pressure readings have been as high as 228/100. She denies chest pain or shortness of niki th. She has had hypertension for 10 years. She has a history of coronary artery disease with an AK 10 years ago. She is very anxious and states that, last night in particular, she could not get any s leep. She did take 0.25 of Xanax, it was ineffective; clonidine, which normally makes her very sleep y, she took 0.2 mg and that did not help her sleep as well. At this point, she got scared when the p alpitations persisted that it may mean something concerning her heart, which her heart rate is normal ly in the 50s and it was 94 at that time pounding. She came to [facility] Room for furth er evaluation. There the troponins were indeterminate, but due to her complex history, it was electe d to put her on observation for further evaluation. REVIEW OF SYSTEMS: Constitutional: She denies any fever or chills and she had felt particularly tir ed. HEENT: Eyes: Denies pain, discharge, or photophobia. ENT: Has had the recent epistaxis menti oned above, but otherwise no other cold symptoms, sinus pain, or nasal discharge. Cardiovascular: D enies chest pain, but admits to palpitations that have been so strong and last night has made her fea rful. Respiratory: She denies shortness of breath, cough, wheezing. GI: Denies nausea, vomiting, diarrhea. : Denies dysuria or blood in urine. Musculoskeletal: Has arthritis, but other than mi ld joint stiffness, denies swelling or pain. Skin: No acute rashes or lesions. Neurologic: She mccarty s had no trouble with dizziness, her mentation, or headaches. Psychiatrically, she has had recent in somnia that has made her anxiety worse. PAST MEDICAL HISTORY: As mentioned above, has had congestive heart failure with an echo done in [place] showing diastolic heart failure. She has renal dysfunction and sees Dr. August for that. She has lala quent kidney infections. She has diabetes, type 2; hyperlipidemia; hypertension; COPD; gout; GERD; a nd diverticulitis. PAST SURGICAL HISTORY: Includes an AC bypass in the past, cholecystectomy, hysterectomy, her CABG wa s 4 vessels. PAST PSYCHIATRIC HISTORY: As mentioned, has anxiety and depression. SOCIAL HISTORY: She is , continues to work, was a long-term smoker. Lives at home. ALLERGIES: CIPRO causing hives, LEVAQUIN causing hives, SULFA causing hives. MEDICATIONS: On admission include an aspirin 81 mg daily, clonidine 0.1 mg spaced out because of sed ation 4 times a day, Crestor 10 mg at bedtime, hydralazine 50 mg t.i.d., iron supplementation for ane harry, sodium docusate for constipation, omeprazole 40 mg daily for GERD, triamterene and hydrochloroth iazide for blood pressure, guanfacine 2 mg daily for blood pressure, Zantac additional treatment for GERD, Januvia 25 mg for diabetes, and minoxidil 2.5 mg for hypertension. She also does DuoNeb treatm ents p.r.n. for COPD. PHYSICAL EXAMINATION: VITAL SIGNS: On admission, blood pressure 208/87, pulse 88, respirations 18, temperature is 98.4. P ain is 0. GENERAL: This is an anxious alert female, cooperative. HEENT: Normocephalic and atraumatic. Pupils are equal, round, reactive to light with arcus senilis bilaterally. TMs, nares, pharynx clear and moist. NECK: Supple, trachea midline, no mass, no tenderness, no bruits. CHEST: Shows diminished breath sounds throughout. BREAST EXAM: Deferred. HEART: Regular rate and rhythm with holosystolic murmur. ABDOMEN: Soft, nontender, without organomegaly. GENITOURINARY: Deferred. EXTREMITIES: With muscular wasting generally upper and lower, but normal range of motion. No clubbi ng, cyanosis, or edema. SKIN: With poor turgor, but no acute rashes. NEUROLOGIC: Cranial nerves are intact. Gait and cerebral function are intact. Sensory exam is inta ct. Mental status significant for anxiety. LABORATORY AND X-RAY FINDINGS: The lab work on admission showed WBC 7.2, hemoglobin 10.8, hematocrit 32.9 with platelets at 197. Her sodium 135, potassium 3.1, chloride 99, CO2 of 24, BUN 38, creatini ne 2.52 with a GFR of 19, glucose 128, AST elevated at 83, troponins all elevated in the indeterminat e range. TSH 2.9. Liver functions normal. Chest x-ray shows no evidence of an acute coronary proce ss. ASSESSMENT: 1. Palpitations. 2. Hypertensive urgency. 3. Diastolic cardiac failure. 4. Hyperkalemia. 5. Renal insufficiency. 6. Non-insulin dependent diabetes. PLAN: Will be to minimize nephrotoxic drugs, maximize blood pressure control, having for systolic un lawson 150. We will get consultation on both her heart and her kidneys. We will try to select medicati ons to better control her blood pressure. We will serially reassess her and treat her insomnia and a nxiety as it arises. It could be the anxiety was part of her palpitations.
[2017-05-14] MEDS: cloNIDine 0.1 MG TAB PO SCH ×5 (00:29→23:42)
[2017-05-14 04:48] LABS: #Eosinphils 0.3 thou/uL (0.0-0.7); #Lymphocytes 1.4 thou/uL (1.20-3.40); #Monocytes 0.6 thou/uL (0.11-0.59); #Neutrophils 3.8 thou/uL (1.40-6.50); %Basophils 0.2 % (0.0-1.0); %Eosinophils 5.7 % (0.0-10.0); %Lymphocytes 22.5 % (21.0-51.0); %Monocytes 9.2 % (0.0-10.0); %Neutrophils 62.5 % (42.0-75.0); Hemoglobin 9.1 g/dL (12.0-16.0); Mean Corpuscular HGB CONC 33.3 g/dL (32.0-36.0); Mean Corpuscular Hemoglobin 29.4 pg (27.0-31.0); Mean Corpuscular Volume 88.1 fl (81.0-99.0); Mean Platelet Volume 8.1 fL (7.4-10.4); Platelet Count 180 thou/uL (130-400); RBC Distribution Width 13.8 % (11.5-14.5)
[2017-05-14 04:57] LABS: Hemoglobin A1c 4.9 % (4.0-6.0)
[2017-05-14 05:03] LABS: Anion Gap 11 mmol/L (10-20); BUN (Urea Nitrogen) 35 mg/dL (9.8-20.1); Calc. Creatinine Clearance 21 mL/min (70-130); Calcium 8.9 mg/dL (7.8-10.44); Carbon Dioxide 24 mmol/L (23-31); Cardiac Risk 4.8 (Less than 4.5); Chloride 102 mmol/L (98-107); Cholesterol 110 mg/dl (< 200 Desired); Estimated GFR-MDRD 23; Glucose 110 mg/dL (83-110); HDL Cholesterol 23 mg/dL (>60 Neg Risk); LDL Cholesterol, Calculated 67 mg/dL; Potassium 3.3 mmol/L (3.5-5.1); Sodium 134 mmol/L (136-145); Triglycerides 102 mg/dL (Less than 150)
[2017-05-14] MEDS: hydrALAZINE 25 MG TAB PO SCH ×3 (08:18→20:47)
[2017-05-14] MEDS: Ferrous Sulfate 325 MG TAB PO SCH (08:19)
[2017-05-14] MEDS: Amlodipine 10 MG TAB PO SCH ×2 (08:19→20:46)
[2017-05-14] MEDS: Aspirin 81 mg Enteric Coated Tablet PO SCH (08:19)
[2017-05-14] MEDS: Potassium Chloride 20 MEQ TAB PO SCH ×2 (08:19→20:44)
[2017-05-14] MEDS: Alogliptin 6.25 MG TAB PO SCH (08:20)
[2017-05-14] MEDS: guanFACINE HCl 1 MG TAB PO SCH ×2 (08:20→14:45)
[2017-05-14] MEDS ORDERED: Triamterene/Hydrochlorothiazide 37.5 mg/25 mg Tablet PO SCH (09:00)
[2017-05-14] MEDS ORDERED: Aspirin 325 mg Enteric Coated Tablet PO SCH ×2 (09:00)
[2017-05-14] MEDS ORDERED: Zolpidem Tartrate 5 MG TAB PO PRN (12:30)
--- NOTE | 2017-05-14 12:45 | CON ---
DATE OF CONSULTATION: 05/14/2017 HISTORY OF PRESENT ILLNESS: Ms. Berman is a 76-year-old white female who was admitted for labile hypertension. She also was complaining initially of palpitations. Of interest, the patient was star naina back on her minoxidil at 2.5 mg tab once a day several days ago due to labile hypertension. The patient also tells me that she has had episode of epistaxis. She was evaluated by ENT. No catheteri zation was done by given Afrin nasal spray. We are being consulted for her chronic renal failure as well as labile hypertension. REVIEW OF SYSTEMS: No chest pain. Positive for palpitation, no shortness of breath, no nausea, no v omiting, no diarrhea, no constipation, no syncopal episode, no fever or chills, no sore throat, no he adache, no diplopia, history of epistaxis, no diarrhea, no gross hematuria, no dysuria, no abdominal pain. Appetite and energy level is fair. MEDICATIONS: Patient is currently on the following; half normal saline plus 20 mEq 75 mL per hour, a cetaminophen p.r.n., amlodipine 10 mg tab b.i.d., alogliptin 12.5 mg once a day, aspirin 81 mg once a day, clonidine 0.1 mg q.i.d., Colace 200 mg b.i.d., Pepcid 20 mg tab once a day, ferrous sulfate 325 mg once a day, furosemide 20 mg b.i.d. as needed, hydralazine 100 mg p.o. t.i.d., Remeron 30 mg tab at bedtime, status post Ambien, KCl 20 mEq b.i.d., rosuvastatin 10 mg at bedtime. PAST MEDICAL HISTORY: 1. Labile hypertension. 2. 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 3. Status post diverticulitis. 4. Type 2 diabetes mellitus. 5. Gout. 6. Hyperlipidemia. 7. COPD. 8. GERD. PAST SURGICAL HISTORY: 1. Status post open cholecystectomy. 2. Status post cardiac catheterization. 3. Status post colonoscopy. 4. Status post hysterectomy. 5. Status post CABG. 6. Status post upper GI endoscopy. 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 Education high school. Smoked for 40 years, 1 pack a day. No IV drug abuse. Status post blood transfusion. FAMILY HISTORY: No family history of ESRD. ALLERGIES: SULFA, CIPRO, and LEVAQUIN. TRAUMA: None. IMMUNIZATIONS: Up to date. HOSPITALIZATIONS: Please see past medical history. PHYSICAL EXAMINATION: VITAL SIGNS: Blood pressure is currently 189/86 with heart rate of 70, pulse ox 94%, respiratory rat e 15, and temperature 98.9. GENERAL: Noted to be awake, alert, comfortable, not in distress. SKIN: Adequate turgor. HEENT: She has pinkish conjunctivae, anicteric sclerae. NECK: No neck mass, no carotid bruits, no JVD. CHEST: No deformities. LUNGS: Clear breath sounds, no wheezing, no crackles. HEART: Normal sinus rhythm. No murmurs, no gallops, no rubs. ABDOMEN: Globular, soft, nontender, no masses. EXTREMITIES: No edema, no deformities. LABORATORY DATA: Laboratories of 05/14/2017, white count 6, hemoglobin 9.1. Sodium 134, potassium 3 .3, chloride 102, carbon dioxide 24, BUN 35, creatinine 2.13, glucose is 110, calcium 8.9. Further r eview of her serum creatinine shows the following; on 05/13/2017 2.52. On 03/14/2017, creatinine 1.9. ASSESSMENT AND PLAN: 1. Acute kidney injury on top of her chronic renal failure - consider hemodynamically mediated renal dysfunction. Please note that patient has been on diuretics and this has been discontinued. At the same time, she is on gentle volume repletion to help improve the renal function. 2. Please note that the triamterene has been stopped. 3. Labile hypertension. We will add Aldomet 250 mg p.o. t.i.d. I did discuss the possible side eff ects with the patient - such as sedation. In addition, we will continue with her current antihyperte nsive regimen. Agree to hold off the minoxidil. I feel that this is causing the palpitations. 4. Agree also to increase hydralazine to 100 mg p.o. t.i.d. If needed, I can consider starting the patient on spironolactone at 25 mg p.o. daily. For the moment, we will hold this off. We will reeva luate in a.m. 5. Chronic renal failure - this is most likely from hypertensive nephropathy. There is no indication for any dialytic intervention. Agree with current management.
[2017-05-14] MEDS: 1/2 NS w/KCL 20 mEq 1,000 ML IV SCH (12:48)
--- NOTE | 2017-05-14 14:05 | CON ---
DATE OF CONSULTATION: 05/14/2017 REASON FOR CONSULTATION: Shortness of breath and elevated blood pressure. REFERRING PROVIDER: Amando Hartman M.D. HISTORY OF PRESENT ILLNESS: Ms. Berman is a very pleasant 76-year-old woman who is a patient of Kay Kang. Ms. Berman recently presented with hypertension, shortness of breath, and epistaxis . This is the first time she has had epistaxis. Blood pressure in the 190s to 200s. She states thi s is not a new issue. She has been on multiple medications in the past. Epistaxis was felt to be ne w. There has been some dietary indiscretion. PAST MEDICAL HISTORY: Hypertension, hypertensive nephropathy, diabetes mellitus, single kidney, CAD status bypass surgery, hysterectomy, colonoscopy, upper GI. SOCIAL HISTORY: She is currently retired. No current tobacco use. There is dietary indiscretion. FAMILY HISTORY: Negative for CAD. HOME MEDICATIONS: Januvia, DuoNeb, Norvasc, Spiriva, Zofran, aspirin, ranitidine, omeprazole, stool softener, triamterene/hydrochlorothiazide, Tenex, Crestor, Catapres, Lasix, minoxidil, and alprazolam . PHYSICAL EXAMINATION: GENERAL: Patient is a pleasant female who is in no acute distress. The patient appears her stated a ge. VITAL SIGNS: Blood pressure 179/80, pulse 82, temperature 98.8. NEUROLOGIC: The patient is alert and oriented times 3 with no focal neurologic deficits. HEENT: Sclerae without icterus. Mouth has moist mucous membranes with normal pallor. NECK: No JVD. Carotid upstroke brisk. No bruits bilaterally. LUNGS: Clear to auscultation with unlabored respirations. BACK: No scoliosis or kyphosis. CARDIAC: Regular rate and rhythm with normal S1 and S2. No S3 or S4 noted. No significant rubs, mu rmurs, thrills, or gallops noted throughout the precordium. PMI is not displaced. There is no eric ternal heave. ABDOMEN: Soft, nontender, nondistended. No peritoneal signs present. No hepatosplenomegaly. No ab normal striae. EXTREMITIES: 2+ femoral and 2+ dorsalis pedis pulses. No cyanosis, clubbing, or edema. SKIN: No gross abnormalities. PERTINENT LABORATORY DATA: Hemoglobin 9.1, creatinine 2.1. IMPRESSION: 1. Malignant hypertension. 2. Single kidney. 3. Coronary artery disease. 4. Status post bypass surgery. RECOMMENDATIONS: Ms. Berman is currently on clonidine, Norvasc, and Aldomet has recently been sta rted by Dr. August. Dietary indiscretion certainly part of the issue. She may also have renal artery s tenosis as the etiology. We will discuss with Dr. Anil August. We will see how she responds to Aldomet . We would consider renal angiography after discussion with Dr. Anil August and if she continues to ashley l medical therapy. Would certainly be at increased risk of contrast nephropathy. I did discuss this with the patient.
[2017-05-14] MEDS: Docusate 100 MG CAP PO SCH (14:45)
[2017-05-14] MEDS: busPIRone HCl 5 MG TAB PO SCH ×2 (14:47→20:44)
--- NOTE | 2017-05-14 15:53 | ULT ---
BILATERAL RENAL ULTRASOUND: Date: 05/14/17 PROVIDED CLINICAL HISTORY: Renal insufficiency. FINDINGS: Right kidney measures approximately 9.0 x 4.3 cm and demonstrates no evidence for hydronephrosis or m ass. Simple appearing cyst is seen involving the superior pole. Left kidney measures approximately 8.0 x 4.3 cm and demonstrates no evidence for hydronephrosis or ma ss. Simple appearing cysts are seen. The urinary bladder appears sonographically unremarkable. Renal Doppler examination could not be completed as the patient was unable to cooperate for the exami nation. Bilateral pleural effusions are noted. IMPRESSION: 1. No evidence for hydronephrosis. 2. Bilateral pleural effusions. POS: [facility]
[2017-05-14] MEDS ORDERED: hydrALAZINE 20 MG/ML VIAL SLOW IVP PRN (18:21)
[2017-05-14] MEDS: Mirtazapine 30 MG TAB PO SCH (18:35)
[2017-05-14] MEDS ORDERED: Acetaminophen 325 MG TAB PO PRN (20:31)
[2017-05-14] MEDS: Famotidine 20 MG TAB PO SCH (20:44)
[2017-05-14] MEDS: Rosuvastatin 10 MG TAB PO SCH (20:44)
[2017-05-14] MEDS: Oxymetazoline HCl 0.05% ( 15 ML ) NASAL PRN (23:42)
[2017-05-15 04:49] LABS: #Eosinphils 0.1 thou/uL (0.0-0.7); #Lymphocytes 1.2 thou/uL (1.20-3.40); #Monocytes 0.7 thou/uL (0.11-0.59); #Neutrophils 5.2 thou/uL (1.40-6.50); %Basophils 0.5 % (0.0-1.0); %Eosinophils 1.1 % (0.0-10.0); %Lymphocytes 16.3 % (21.0-51.0); %Monocytes 9.6 % (0.0-10.0); %Neutrophils 72.5 % (42.0-75.0); Hemoglobin 9.3 g/dL (12.0-16.0); Mean Corpuscular Hemoglobin 28.7 pg (27.0-31.0); Mean Corpuscular Volume 87.1 fl (81.0-99.0); Mean Platelet Volume 7.6 fL (7.4-10.4); Platelet Count 207 thou/uL (130-400); RBC Distribution Width 13.8 % (11.5-14.5); Red Blood Cell (RBC) Count 3.24 mill/uL (4.20-5.40); White Blood Cell (WBC) Count 7.1 thou/uL (4.8-10.8)
[2017-05-15 05:00] LABS: Anion Gap 10 mmol/L (10-20); BUN (Urea Nitrogen) 38 mg/dL (9.8-20.1); Calc. Creatinine Clearance 20 mL/min (70-130); Calcium 9.1 mg/dL (7.8-10.44); Carbon Dioxide 25 mmol/L (23-31); Chloride 104 mmol/L (98-107); Estimated GFR-MDRD 21; Glucose 119 mg/dL (83-110); Potassium 4.3 mmol/L (3.5-5.1); Sodium 135 mmol/L (136-145)
[2017-05-15] MEDS: cloNIDine 0.1 MG TAB PO SCH ×4 (05:46→23:27)
[2017-05-15] MEDS: Ferrous Sulfate 325 MG TAB PO SCH (08:25)
[2017-05-15] MEDS: hydrALAZINE 25 MG TAB PO SCH ×3 (08:25→20:40)
[2017-05-15] MEDS: Amlodipine 10 MG TAB PO SCH ×2 (08:25→20:41)
[2017-05-15] MEDS: Potassium Chloride 20 MEQ TAB PO SCH ×3 (08:25→20:42)
[2017-05-15] MEDS: busPIRone HCl 5 MG TAB PO SCH ×3 (08:25→20:40)
[2017-05-15] MEDS: Aspirin 81 mg Enteric Coated Tablet PO SCH ×2 (08:25→09:26)
[2017-05-15] MEDS: Alogliptin 6.25 MG TAB PO SCH (08:26)
[2017-05-15] MEDS: guanFACINE HCl 1 MG TAB PO SCH ×2 (08:26→15:57)
--- NOTE | 2017-05-15 09:20 | PRG ---
DATE OF SERVICE: 05/15/2017 SUBJECTIVE: Ms. Berman is a 76-year-old white female with chronic renal failure and was admitted for her labile hypertension. I did start her on Aldomet 250 mg p.o. t.i.d. yesterday. However, last night she had some epistaxis which was quite persistent. This has spontaneously stopped this mornin g. An ENT consult has been done. No other complaints. PHYSICAL EXAMINATION: VITAL SIGNS: Blood pressure is currently 132/71 with heart rate of 81, respiratory rate 22, temperat ure 98.7, and pulse ox 96%. GENERAL: Noted to be sleepy, but arousable, not in distress. SKIN: Adequate turgor. HEENT: Slightly pale conjunctivae, anicteric sclerae. NECK: No neck mass. No carotid bruits, no JVD. CHEST: No deformities. LUNGS: Clear breath sounds, no wheezing, no crackles. HEART: Normal sinus rhythm. No murmur, no gallops, no rubs. ABDOMEN: Globular, soft, nontender, no masses. EXTREMITIES: No edema, no deformities. MEDICATIONS: Medications of 05/15/2017 reviewed. LABORATORY DATA: Laboratories of 05/15/2017; white count 7.1, hemoglobin 9.3. Sodium 135, potassium 4.3, chloride 104, carbon dioxide 25, BUN 38, creatinine 2.27, glucose 119, and calcium 9.1. BNP wa s 1998. ASSESSMENT AND PLAN: 1. Chronic renal failure - fluctuating creatinine. Creatinine noted at 2.27. This is slightly high er from yesterday. We will continue to observe. She is not on any nephrotoxic drugs at the present time, but she does take Lasix on a p.r.n. basis. Continue to observe. No indication for any dialyti c intervention. 2. Labile hypertension. Continuing current blood pressure meds. Aldomet 250 mg p.o. t.i.d. was int roduced. We will slowly up this depending on what the blood pressure is. 3. Recurrent epistaxis, reconsult ENT. 4. Will be rechecking basic metabolic panel and CBC in a.m.
[2017-05-15] MEDS: Oxymetazoline HCl 0.05% ( 15 ML ) NASAL PRN (09:28)
[2017-05-15] MEDS ORDERED: Oxymetazoline HCl 0.05% ( 15 ML ) NASAL PRN (12:33)
[2017-05-15] MEDS ORDERED: traMADol HCl 50 MG TAB PO PRN (12:36)
[2017-05-15] MEDS: Sodium Chloride 0.45% 500 ML IV SCH ×2 (12:55→13:23)
[2017-05-15 14:01] LABS: #Eosinphils 0.1 thou/uL (0.0-0.7); #Lymphocytes 0.8 thou/uL (1.20-3.40); #Monocytes 0.5 thou/uL (0.11-0.59); #Neutrophils 4.8 thou/uL (1.40-6.50); %Basophils 0.4 % (0.0-1.0); %Eosinophils 1.2 % (0.0-10.0); %Lymphocytes 12.5 % (21.0-51.0); %Neutrophils 77.9 % (42.0-75.0); Hemoglobin 7.9 g/dL (12.0-16.0); Mean Corpuscular HGB CONC 32.9 g/dL (32.0-36.0); Mean Corpuscular Hemoglobin 28.7 pg (27.0-31.0); Mean Corpuscular Volume 87.1 fl (81.0-99.0); Mean Platelet Volume 7.2 fL (7.4-10.4); Platelet Count 199 thou/uL (130-400); RBC Distribution Width 13.8 % (11.5-14.5); Red Blood Cell (RBC) Count 2.75 mill/uL (4.20-5.40); White Blood Cell (WBC) Count 6.1 thou/uL (4.8-10.8)
[2017-05-15] MEDS: Docusate 100 MG CAP PO SCH (15:56)
[2017-05-15] MEDS: AMOXicillin 250 MG CAP PO SCH ×2 (15:57→20:39)
--- NOTE | 2017-05-15 16:37 | ULT ---
ULTRASOUND ABDOMEN PELVIC ARTERIOVENOUS FLOW WITH COMPRESSION: Date: 05/15/17 HISTORY: Renal Doppler. This a left renal arterial Doppler only. COMPARISON: CT of 07/25/14. Ultrasound renal from prior day. FINDINGS: No normal intraparenchymal arterial flow can be seen within the left renal artery. IMPRESSION: No normal dopplerable flow in left renal artery. POS: [facility]
[2017-05-15] MEDS: Mirtazapine 30 MG TAB PO SCH (18:38)
[2017-05-15] MEDS: Rosuvastatin 10 MG TAB PO SCH (20:40)
[2017-05-15] MEDS: Famotidine 20 MG TAB PO SCH (20:42)
[2017-05-15] MEDS ORDERED: Mirtazapine 30 MG TAB PO SCH (22:00)
[2017-05-16 05:43] LABS: Eosinophils 1 % (0-10); Hemoglobin 7.9 g/dL (12.0-16.0); Lymphocytes 20 % (21-51); MDiff Complete? YES; Mean Corpuscular Hemoglobin 29.5 pg (27.0-31.0); Mean Corpuscular Volume 89.3 fl (81.0-99.0); Mean Platelet Volume 7.5 fL (7.4-10.4); Monocytes 5 % (0-10); Myelocyte 1 % (0-0); Neutrophil 73 % (42-75); PLT Morphology Comment Appears Adequate; Platelet Count 239 thou/uL (130-400); RBC Morphology Normal; Red Blood Cell (RBC) Count 2.68 mill/uL (4.20-5.40); White Blood Cell (WBC) Count 7.3 thou/uL (4.8-10.8)
[2017-05-16 05:45] LABS: Anion Gap 13 mmol/L (10-20); BUN (Urea Nitrogen) 55 mg/dL (9.8-20.1); Calc. Creatinine Clearance 21 mL/min (70-130); Calcium 9.1 mg/dL (7.8-10.44); Carbon Dioxide 21 mmol/L (23-31); Chloride 107 mmol/L (98-107); Estimated GFR-MDRD 23; Glucose 106 mg/dL (83-110); Sodium 137 mmol/L (136-145)
[2017-05-16] MEDS: cloNIDine 0.1 MG TAB PO SCH ×3 (05:58→21:00)
--- NOTE | 2017-05-16 06:11 | CON ---
DATE OF CONSULTATION: 05/15/2017 REASON FOR CONSULTATION: The patient was seen in consultation by Dr. Hartman for evaluation of epistax is. BRIEF HISTORY: This woman was seen in our clinic earlier this week. She had no evidence of epistaxi s at that time and had reported some bright red blood from her right nostril. She presented with chr onic renal failure and currently having nosebleeds from the right side. reports now that the n osebleeds have become more posteriorly from the mouth, they have been unable to stop with Afrin and a nterior pressure. Blood pressures have been elevated up to 200/110 intermittently as well during the se bleeding episodes. PAST MEDICAL HISTORY: 1. Chronic renal failure. 2. Hypertension. 3. Coronary artery disease. PAST SURGICAL HISTORY: No history of head and neck or nasal surgeries. ALLERGIES: No known drug allergies. MEDICATIONS: See medication list. PHYSICAL EXAMINATION: GENERAL: The patient is resting in the bed. HEENT: She is having bright red blood from the right anterior nose as well as posteriorly. The nasa l cavity was suctioned anteriorly, which shows maybe small dilated vessels and Kiesselbach's plexus o n the right side; however, no obvious bleeding was seen. There is bright red blood in the posterior oral cavity more on the right. The ear seems intact. Middle ears well aerated. PROCEDURE: On the right, a nasal pack was placed after topical anesthesia and decongestant were appl ied and was insufflated with 6 mL of air. Following this, all bleeding stopped anteriorly and zoning technician iorly. The pack was observed for 10 minutes prior to leaving. ASSESSMENT: Right posterior epistaxis likely related to significant hypertensive episode. PLAN: We are going to leave the pack in place until Monday. They can use Afrin p.r.n. nasal blee ding. Also, strict blood pressure control. We will follow up on Monday.
--- NOTE | 2017-05-16 08:36 | PRG ---
DATE OF SERVICE: 05/16/2017 The patient had a good night. She rested well. According to her she slept most of the day y . We did have Dr. Betts to come see the patient in consultation for epistaxis. She has not had any bleeding since. PHYSICAL EXAMINATION: GENERAL: She is awake, alert, and oriented to person, place and time. VITAL SIGNS: Her blood pressure at 4 this morning was elevated at 183/80, pulse 90, respiration 16. She is afebrile. NECK: Supple. No JVP or carotid bruit. Carotid had good upstroke, no thyromegaly. COR: Regular rate and rhythm. Same murmur. CHEST: Symmetrical. Clear to auscultation and percussion. ABDOMEN: Soft, nontender with normoactive bowel sounds. No bruit or mass. EXTREMITIES: No edema or cyanosis. She had palpable pedal pulses. SKIN: There is no evidence of ulcer, lesion, or rash. NEUROLOGIC: She is awake, alert, and oriented to person, place, and time. LABORATORY DATA: Her H&H dropped from 10.8 to 7.9, her hematocrit 23.9, platelet is 239. BUN 55, cr eatinine 2.0. ASSESSMENT: 1. Acute on chronic congestive heart failure. 2. Hypertension urgency. 3. Chronic obstructive pulmonary disease. 4. Epistaxis. 5. Multiple medical problems. 6. Anemia secondary to epistaxis. PLAN: I appreciate all consultants' help. We will follow up with a CBC and CMP in the morning. The patient still has elevated blood pressure, so is not ready to go home yet until her blood pressure i s better controlled.
[2017-05-16] MEDS: busPIRone HCl 5 MG TAB PO SCH ×3 (08:39→21:01)
[2017-05-16] MEDS: Ferrous Sulfate 325 MG TAB PO SCH (08:41)
[2017-05-16] MEDS: Amlodipine 10 MG TAB PO SCH ×2 (08:41→21:01)
[2017-05-16] MEDS: AMOXicillin 250 MG CAP PO SCH ×3 (08:42→21:01)
[2017-05-16] MEDS: Potassium Chloride 20 MEQ TAB PO SCH ×2 (08:43→21:02)
[2017-05-16] MEDS: guanFACINE HCl 1 MG TAB PO SCH ×2 (08:44→16:12)
[2017-05-16] MEDS: hydrALAZINE 25 MG TAB PO SCH ×3 (09:11→21:02)
--- NOTE | 2017-05-16 09:17 | PRG ---
DATE OF SERVICE: 05/16/2017 SUBJECTIVE: Ms. Berman is a 76-year-old white female, who was admitted for labile hypertension. She also had epistaxis. She has also been evaluated by the ear, nose, throat specialist. She was al so started on Aldomet 250 mg p.o. t.i.d. Over time, her blood pressure is getting better. No other complaints. She had a good night's rest. She is still sleepy this morning. No other compl aints, no chest pain or shortness of breath. OBJECTIVE: VITAL SIGNS: Blood pressure is 154/67, heart rate 87, respiratory rate 20, temperature 99.1, pulse o x 96%. GENERAL EXAM: Sleepy, but arousable, not in overt distress. SKIN: Adequate turgor. HEENT: Slightly pale conjunctivae, anicteric sclerae. NECK: No neck mass, no carotid bruits, no JVD. She has a nasal packing. LUNGS: Clear breath sounds. No wheezing, no crackles. HEART: Normal sinus rhythm. No murmur, no gallops, and no rubs. ABDOMEN: Globular, soft, nontender, no masses. EXTREMITIES: No edema, no deformities. Medications of 05/16/2017 was reviewed. LABORATORY DATA: Laboratories of 05/16/2017, white count 7.3, hemoglobin 7.9. Sodium 137, potassium 4, chloride 107, carbon dioxide 21, BUN 55, creatinine 2.1, glucose 106, calcium 9.1. ASSESSMENT AND PLAN: 1. Epistaxis - ENT following. Nasal packing was done. 2. Labile hypertension, slowly improving. Continue current antihypertensive regimen. 3. 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 Creatinine noted at 2.1, which is relativel y stable. Her baseline creatinine is between 1.5-2.0. No indication for any dialytic intervention. We will continue current management. We will recheck basic metabolic panel and CBC in a.m. Overall, agree with current management.
--- NOTE | 2017-05-16 11:21 | PQF ---
DATE: 05-16-17 ATTN: DR. OLIVA VINCENT Please exercise your independent, professional judgment in responding to the clarification form. Clinical indicators are provided on the bottom of this form for your review Please check appropriate box(s): [ x ] Primary/Essential Hypertension [ x ] Emergency [ ] Crisis [ ] Hypertensive Heart Disease [ x ] Hypertensive Heart and Kidney Disease [ ] Other diagnosis [ ] Unable to determine In addition, please specify: Present on Admission (POA): [ x ] Yes [ ] No [ ] Unable to determine For continuity of documentation, please document condition throughout progress notes and discharge summary. Thank You. CLINICAL INDICATORS - SIGNS / SYMPTOMS / LABS ER DOCUMENTATION: PAIN/SX MAY BE 2/2 HTN EMERGENCY ER DIAGNOSIS: CHEST PAIN R/O, HYPERTENSIVE URGENCY BP: (ER) 208/87, 201/92, VITALS: 05-14-17: 223/98, 205/84, 05-15-17: 196/84 H&P: HX OF HTN, RECENT EPISTAXIS, WITH CURRENT ONE IN HOSPITAL RISK FACTORS: H&P: HX OF HTN, HX OF CHF ( ER), MS, HYPERLIPIDEMIA, DM 2 TREATMENTS: CARDIAC MONITORING ( MAR) CLONIDINE, NORVASC, APRESOLINE (This form is maintained as a part of the permanent medical record) 2014 [employer]. All Rights Reserved [email or web address] Office: [phone] ALBERTO
--- NOTE | 2017-05-16 11:34 | PQF ---
DATE: 05-16-17 ATTN: DR. OLIVA VINCENT Please exercise your independent, professional judgment in responding to the clarification form. Clinical indicators are provided on the bottom of this form for your review Please check appropriate box(s) [ ] Demand Ischemia [ ] AMI Type II [ ] NSTEMI [ x ] Other diagnosis ___CKD [ ] Unable to determine In addition, please specify: Present on Admission (POA): [ X ] Yes [ ] No [ ] Unable to determine CLINICAL INDICATORS - SIGNS / SYMPTOMS / LABS TROPONIN: 05-13-17: 0.085 0.105 0.097 ER DIAGNOSIS: CHEST PAIN R/O, HYPERTENSIVE URGENCY RISKS: ER DOCUMENTATION: HX OF CHF, SD, DM 2, HTN, HYPERLIPIDEMIA, , CABG, TREATMENTS: CONTINUOUS CARDIAC MONITORING (ER) ASPIRIN CARDIAC CONSULT (This form is maintained as a part of the permanent medical record) 2014 [employer]. All Rights Reserved [email or web address] Office: [phone] [facility] HOSPITALKay
[2017-05-16] MEDS: Docusate 100 MG CAP PO SCH (16:13)
--- NOTE | 2017-05-16 20:03 | PDOC.CTH ---
Cardiology Progress Note - Subjective She had her nose packed earlier today. No more bleeding. BP better controlled but still labile. - Objective Vital Signs Temp Pulse Resp BP BP Pulse Ox 05/16/17 16:14 160/67 H 05/16/17 16:13 89 05/16/17 16:04 98.4 F 89 18 152/72 H 93 L 05/16/17 14:27 82 16 93 L 05/16/17 11:39 160/67 H 05/16/17 11:33 99.3 F 97 16 160/67 H 96 05/16/17 10:58 90 15 92 L 05/16/17 09:11 83 154/67 H 05/16/17 08:42 154/67 H 05/16/17 08:41 83 05/16/17 08:33 99.1 F 83 20 154/67 H 96 05/15/17 05/16/17 05/17/17 06:59 06:59 06:59 Intake Total 354.3 1440 Output Total 400 700 Balance -45.7 740 - Physical Examination General/Neuro: alert & oriented x3, NAD Neck: no JVD present Lungs: unlabored respirations Heart: RRR Abdomen: NT/ND Extremities: other: (no edema.) - Telemetry Telemetry Rhythm: NSR - Labs Result Diagrams: 05/16/17 04:43 05/16/17 04:43 Troponin/CKMB CK-MB (CK-2) 1.6 ng/mL (0-6.6) 05/13/17 09:07 Troponin I 0.097 ng/mL (< 0.028) H 05/13/17 15:49 - Assessment/Plan 1. Hypertensive urgency, improved. 2. Epistaxis 3. CAD,stable PLAN: - ENT on board for nose bleed. - Family tells me nephrology has been handling her BP control. - Will sign off. please call with any questions.
[2017-05-16] MEDS: Rosuvastatin 10 MG TAB PO SCH (21:00)
[2017-05-16] MEDS: Famotidine 20 MG TAB PO SCH (21:01)
[2017-05-16] MEDS: Mirtazapine 30 MG TAB PO SCH (21:01)
[2017-05-17] MEDS: cloNIDine 0.1 MG TAB PO SCH ×4 (00:24→21:11)
[2017-05-17 05:28] LABS: #Eosinphils 0.1 thou/uL (0.0-0.7); #Lymphocytes 1.3 thou/uL (1.20-3.40); #Monocytes 0.5 thou/uL (0.11-0.59); #Neutrophils 3.9 thou/uL (1.40-6.50); %Basophils 0.7 % (0.0-1.0); %Eosinophils 2.5 % (0.0-10.0); %Lymphocytes 21.4 % (21.0-51.0); %Monocytes 8.8 % (0.0-10.0); %Neutrophils 66.7 % (42.0-75.0); Hemoglobin 6.7 g/dL (12.0-16.0); Mean Corpuscular HGB CONC 32.8 g/dL (32.0-36.0); Mean Corpuscular Hemoglobin 28.6 pg (27.0-31.0); Mean Corpuscular Volume 87.1 fl (81.0-99.0); Mean Platelet Volume 7.2 fL (7.4-10.4); Platelet Count 227 thou/uL (130-400); RBC Distribution Width 13.8 % (11.5-14.5); Red Blood Cell (RBC) Count 2.35 mill/uL (4.20-5.40); White Blood Cell (WBC) Count 5.9 thou/uL (4.8-10.8)
[2017-05-17 05:56] LABS: ALT (SGPT) 16 U/L (8-55); AST (SGOT) 20 U/L (5-34); Albumin 3.2 g/dL (3.4-4.8); Alkaline Phosphatase 89 U/L (40-150); Anion Gap 12 mmol/L (10-20); BUN (Urea Nitrogen) 50 mg/dL (9.8-20.1); Bilirubin, Total 0.4 mg/dL (0.2-1.2); Calc. Creatinine Clearance 22 mL/min (70-130); Calcium 8.9 mg/dL (7.8-10.44); Carbon Dioxide 22 mmol/L (23-31); Chloride 107 mmol/L (98-107); Estimated GFR-MDRD 23; Globulin 2.6 g/dL (2.4-3.5); Glucose 115 mg/dL (83-110); Potassium 4.4 mmol/L (3.5-5.1); Protein, Total 5.8 g/dL (6.0-8.3); Sodium 137 mmol/L (136-145)
[2017-05-17] MEDS ORDERED: ALPRAZolam 0.25 MG TAB PO PRN (07:29)
--- NOTE | 2017-05-17 10:24 | PRG ---
DATE OF SERVICE: 05/17/2017 RENAL MEDICINE SUBJECTIVE: Ms. Berman is a 76-year-old white female who was admitted for labile hypertension. B lood pressure is slightly improved. She has been started on a new medication, Aldomet 250 mg p.o. t. i.d. She seems to be tolerating this. I have not excluded the near future of further increasing the dose of this medication. I may stand to increase Aldomet due to the fact this patient is very sensi tive to medications. She has been started several BP meds and number of times she has not tolerated most of them. No other complaints today, no chest pain or shortness of breath. Please note she was also evaluated by ENT for her epistaxis. Nasal packing was done. PHYSICAL EXAMINATION: VITAL SIGNS: Blood pressure is 176/77, heart rate 80, respiratory rate 20, temperature 98.2, pulse o x 93%. GENERAL: Noted to be awake, alert, comfortable, not in distress. SKIN: Adequate turgor. HEENT: She has pale conjunctivae, anicterus sclerae. NECK: No neck mass, no carotid bruits, no JVD. CHEST: No deformities. LUNGS: Clear breath sounds. HEART: Normal sinus rhythm. No murmurs, no gallops, no rubs. ABDOMEN: Globular, soft, nontender, no masses. EXTREMITIES: No edema, no deformities. MEDICATIONS: Medications of 05/17/2017 reviewed. LABORATORY DATA: Laboratories of 05/17/2017; white count 5.9, hemoglobin 6.7, hematocrit 20.4. Sodi um 137, potassium 4.4, chloride 107, carbon dioxide 22, BUN 50, creatinine 2.06, glucose 115, calcium 8.9, AST 20, ALT 16. ASSESSMENT AND PLAN: 1. Labile hypertension - improved. Continue current antihypertensive regimen. In the near future, we could consider increasing Aldomet to 500 mg 1 tab t.i.d. if needed. 2. Epistaxis, much improved on nasal packing. ENT following. 3. Anemia, one unit of packed red blood cells today. Recheck CBC and basic metabolic panel again in a.m.
[2017-05-17] MEDS: busPIRone HCl 5 MG TAB PO SCH ×3 (10:54→21:10)
[2017-05-17] MEDS: Ferrous Sulfate 325 MG TAB PO SCH (10:54)
[2017-05-17] MEDS: AMOXicillin 250 MG CAP PO SCH ×3 (10:56→21:14)
[2017-05-17] MEDS: Potassium Chloride 20 MEQ TAB PO SCH ×2 (10:56→21:09)
[2017-05-17] MEDS: Amlodipine 10 MG TAB PO SCH ×2 (10:57→21:11)
[2017-05-17] MEDS: guanFACINE HCl 1 MG TAB PO SCH ×2 (11:04→16:33)
[2017-05-17] MEDS: hydrALAZINE 25 MG TAB PO SCH ×3 (11:05→21:10)
[2017-05-17] MEDS ORDERED: Docusate 100 MG CAP PO SCH (17:00)
[2017-05-17] MEDS: Docusate 100 MG CAP PO SCH (17:19)
[2017-05-17] MEDS: Mirtazapine 30 MG TAB PO SCH (21:11)
[2017-05-17] MEDS: Famotidine 20 MG TAB PO SCH (21:11)
[2017-05-17] MEDS: Rosuvastatin 10 MG TAB PO SCH (21:11)
[2017-05-17] MEDS: Aripiprazole 2 MG TAB PO SCH (21:12)
[2017-05-18] MEDS: cloNIDine 0.1 MG TAB PO SCH ×4 (00:33→22:13)
[2017-05-18 05:34] LABS: #Eosinphils 0.1 thou/uL (0.0-0.7); #Lymphocytes 0.7 thou/uL (1.20-3.40); #Monocytes 0.4 thou/uL (0.11-0.59); #Neutrophils 3.4 thou/uL (1.40-6.50); %Basophils 0.4 % (0.0-1.0); %Eosinophils 1.9 % (0.0-10.0); %Lymphocytes 14.8 % (21.0-51.0); %Monocytes 9.2 % (0.0-10.0); %Neutrophils 73.7 % (42.0-75.0); Hemoglobin 7.8 g/dL (12.0-16.0); Mean Corpuscular HGB CONC 32.7 g/dL (32.0-36.0); Mean Corpuscular Hemoglobin 28.3 pg (27.0-31.0); Mean Corpuscular Volume 86.6 fl (81.0-99.0); Mean Platelet Volume 7.4 fL (7.4-10.4); Platelet Count 210 thou/uL (130-400); RBC Distribution Width 14.6 % (11.5-14.5); Red Blood Cell (RBC) Count 2.76 mill/uL (4.20-5.40); White Blood Cell (WBC) Count 4.6 thou/uL (4.8-10.8)
[2017-05-18 05:53] LABS: Anion Gap 13 mmol/L (10-20); BUN (Urea Nitrogen) 44 mg/dL (9.8-20.1); Calc. Creatinine Clearance 22 mL/min (70-130); Calcium 8.9 mg/dL (7.8-10.44); Carbon Dioxide 20 mmol/L (23-31); Chloride 107 mmol/L (98-107); Estimated GFR-MDRD 23; Glucose 125 mg/dL (83-110); Potassium 4.9 mmol/L (3.5-5.1); Sodium 135 mmol/L (136-145)
--- NOTE | 2017-05-18 08:58 | PRG ---
DATE OF SERVICE: 05/18/2017 RENAL MEDICINE SUBJECTIVE: Ms. Berman is a 76-year-old white female admitted for labile hypertension. She has a lso underlying chronic renal failure secondary to hypertensive nephropathy. BP meds have been adjust ed. Case discussed with Dr. Amando Hartman. Aldomet has been increased to 500 mg p.o. t.i.d. No oth er complaints. ENT is following the patient for her epistaxis. PHYSICAL EXAMINATION: VITAL SIGNS: Blood pressure is 147/72, heart rate 66, respiratory rate 16, temperature 97.4, pulse o x 93%. GENERAL: Awake, alert, comfortable, not in distress. SKIN: Adequate turgor. HEENT: Slightly pale conjunctivae, anicteric sclerae. NECK: No neck mass, no carotid bruits, no JVD. CHEST: No deformities. LUNGS: Clear breath sounds. HEART: Normal sinus rhythm. No murmur, no gallops, no rubs. ABDOMEN: Globular, soft, nontender. No masses. EXTREMITIES: No edema. MEDICATIONS: Medications of 05/18/2017 reviewed. LABORATORY DATA: Laboratories of 05/18/3017; white count 4.6, hemoglobin 7.8. Sodium 135, potassium 4.9, chloride 107, carbon dioxide 20, BUN 44, creatinine 2.08, glucose 125, calcium 8.9. ASSESSMENT AND PLAN: 1. Anemia, status post blood transfusion. Patient has had epistaxis in the past. 2. Epistaxis. ENT is following. The nasal balloon has been discontinued due to the still persisten t epistaxis. 3. Hypertension, labile. Continue current blood pressure medications. It is much improved with adj ustment of her BP meds. Currently on the increased dose of Aldomet at 500 mg p.o. t.i.d. 4. Chronic renal failure secondary to a presumed hypertensive nephropathy. The patient is stable. Renal function remains unchanged in the last several days. There is no indication for any dialytic i ntervention. We will recheck basic metabolic panel and CBC in a.m.
[2017-05-18] MEDS: guanFACINE HCl 1 MG TAB PO SCH ×2 (08:59→16:44)
[2017-05-18] MEDS: AMOXicillin 250 MG CAP PO SCH ×3 (09:00→22:12)
[2017-05-18] MEDS: Ferrous Sulfate 325 MG TAB PO SCH (09:01)
[2017-05-18] MEDS: busPIRone HCl 5 MG TAB PO SCH ×3 (09:01→22:14)
[2017-05-18] MEDS: hydrALAZINE 25 MG TAB PO SCH ×3 (09:01→22:13)
[2017-05-18] MEDS: Potassium Chloride 20 MEQ TAB PO SCH ×2 (09:02→22:14)
[2017-05-18] MEDS: Amlodipine 10 MG TAB PO SCH ×2 (09:02→22:14)
--- NOTE | 2017-05-18 13:05 | PDOC.CTH ---
<Danii De Paz - Last Filed: 05/18/17 13:02> Cardiology Progress Note - Subjective The pt seen and examined. No overnight events. No cardiac complaints. She started bleeding when the air from nasal package yesterday. Per family, the pt does not have any good appetite. - Objective Vital Signs Temp Pulse Resp BP BP Pulse Ox 05/18/17 11:45 158/70 H 05/18/17 11:31 94 L 05/18/17 11:30 76 16 05/18/17 09:02 83 05/18/17 09:01 83 05/18/17 09:00 154/77 H 05/18/17 08:15 98.2 F 83 16 05/18/17 07:58 90 L 05/18/17 07:55 70 16 05/18/17 06:09 147/72 H 05/18/17 04:00 97.4 F L 66 16 147/72 H 93 L Weight 129 lb 12.8 oz 05/17/17 05/18/17 05/19/17 06:59 06:59 06:59 Intake Total 1800 0 Output Total 1150 450 Balance 650 -450 - Physical Examination General/Neuro: alert & oriented x3 Neck: no JVD present Lungs: CTA (diminished at bases) Heart: RRR Abdomen: soft Extremities: other: (No edemas) - Telemetry Telemetry Rhythm: SR - Labs Result Diagrams: 05/18/17 05:02 05/18/17 05:02 Troponin/CKMB CK-MB (CK-2) 1.6 ng/mL (0-6.6) 05/13/17 09:07 Troponin I 0.097 ng/mL (< 0.028) H 05/13/17 15:49 - Assessment/Plan 1. Hypertensive urgency - Aldomet was increased to 500mg TID by Dr August; cont. monitor 2. Epistaxis - managed by ENT 3. Anemia - Hgb 7.8 today from 6.7 yesterday; cont. monitor CBC in AM 4. CAD with Hx of CABG in 2007 - stable; cont. monitor on tele 5. 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 DM type 2 - stable 7. GERD - stable MAR reviewed * Echo on 05/14/17 showed EF 55-60%, grade I diastolic dysfunction, mild-mod TR Review of Systems - Review of Systems Constitutional: reports: weakness EENTM: reports: no symptoms reported Respiratory: reports: no symptoms reported Cardiac (ROS): reports: no symptoms reported ABD/GI: reports: no symptoms reported : reports: no symptoms reported <Will Kang - Last Filed: 05/18/17 16:53> Cardiology Progress Note - Objective Vital Signs Temp Pulse Resp BP BP Pulse Ox 05/18/17 16:43 78 159/70 H 05/18/17 11:45 98.1 F 78 16 158/70 H 158/70 H 95 05/18/17 11:31 94 L 05/18/17 11:30 76 16 05/18/17 09:02 83 05/18/17 09:01 83 05/18/17 09:00 154/77 H 05/18/17 08:15 98.2 F 83 16 154/77 H 93 L 05/18/17 07:58 90 L 05/18/17 07:55 70 16 05/18/17 06:09 147/72 H Weight 129 lb 12.8 oz 05/17/17 05/18/17 05/19/17 06:59 06:59 06:59 Intake Total 1800 0 Output Total 1150 450 Balance 650 -450 - Labs Result Diagrams: 05/18/17 05:02 05/18/17 05:02 Troponin/CKMB CK-MB (CK-2) 1.6 ng/mL (0-6.6) 05/13/17 09:07 Troponin I 0.097 ng/mL (< 0.028) H 05/13/17 15:49 - Assessment/Plan Pt. seen and eval. by me. I agree with the A/P by the ENGLISH DRAWER. It appears that the epistaxis has stopped for the rtime being. the nasal ballon has been deflated for a couple hours and has just now been removed. The BP is still on the high side. I will add NTG paste.
[2017-05-18] MEDS ORDERED: Docusate 100 MG CAP PO SCH (15:00)
[2017-05-18] MEDS: Nitroglycerin 2% Ointment 1 INCH/1 GM Packet TOP SCH (22:12)
[2017-05-18] MEDS: Aripiprazole 2 MG TAB PO SCH (22:14)
[2017-05-18] MEDS: Mirtazapine 30 MG TAB PO SCH (22:14)
[2017-05-18] MEDS: Famotidine 20 MG TAB PO SCH (22:14)
[2017-05-18] MEDS: Rosuvastatin 10 MG TAB PO SCH (22:14)
[2017-05-19] MEDS: cloNIDine 0.1 MG TAB PO SCH ×2 (00:32→06:46)
[2017-05-19 05:22] LABS: #Eosinphils 0.2 thou/uL (0.0-0.7); #Lymphocytes 0.7 thou/uL (1.20-3.40); #Monocytes 0.4 thou/uL (0.11-0.59); #Neutrophils 3.7 thou/uL (1.40-6.50); %Basophils 0.7 % (0.0-1.0); %Eosinophils 4.3 % (0.0-10.0); %Lymphocytes 13.6 % (21.0-51.0); %Monocytes 8.7 % (0.0-10.0); %Neutrophils 72.7 % (42.0-75.0); Hemoglobin 8.2 g/dL (12.0-16.0); Mean Corpuscular HGB CONC 32.3 g/dL (32.0-36.0); Mean Corpuscular Hemoglobin 28.7 pg (27.0-31.0); Mean Corpuscular Volume 89.1 fl (81.0-99.0); Mean Platelet Volume 7.6 fL (7.4-10.4); Platelet Count 225 thou/uL (130-400); RBC Distribution Width 14.7 % (11.5-14.5); Red Blood Cell (RBC) Count 2.84 mill/uL (4.20-5.40)
[2017-05-19 05:44] LABS: Anion Gap 12 mmol/L (10-20); BUN (Urea Nitrogen) 44 mg/dL (9.8-20.1); Calc. Creatinine Clearance 20 mL/min (70-130); Calcium 8.8 mg/dL (7.8-10.44); Carbon Dioxide 23 mmol/L (23-31); Chloride 105 mmol/L (98-107); Estimated GFR-MDRD 21; Glucose 117 mg/dL (83-110); Potassium 4.9 mmol/L (3.5-5.1); Sodium 135 mmol/L (136-145)
--- NOTE | 2017-05-19 08:31 | PDOC.CTH ---
Cardiology Progress Note - Subjective The pt seen and examined. No overnight events. No cardiac complaints. Per family, she has been sleeping for most of day and no appetite. - Objective Vital Signs Temp Pulse Resp BP BP Pulse Ox 05/19/17 07:07 80 16 05/19/17 06:46 141/67 H 05/19/17 04:00 98.1 F 81 20 141/67 H 90 L 05/19/17 00:32 158/72 H 05/19/17 00:00 158/72 H 05/18/17 22:14 158/72 H 05/18/17 22:13 158/72 H 05/18/17 22:12 158/72 H Weight 129 lb 12.8 oz 05/18/17 05/19/17 05/20/17 06:59 06:59 06:59 Intake Total 0 240 Output Total 450 Balance -450 240 - Physical Examination General/Neuro: alert & oriented x3 Neck: no JVD present Lungs: CTA Heart: RRR Abdomen: soft Extremities: other: (No edema) - Telemetry Telemetry Rhythm: SR 70s - Labs Result Diagrams: 05/19/17 04:36 05/19/17 04:36 Troponin/CKMB CK-MB (CK-2) 1.6 ng/mL (0-6.6) 05/13/17 09:07 Troponin I 0.097 ng/mL (< 0.028) H 05/13/17 15:49 - Assessment/Plan 1. Hypertensive urgency - Stable with current medication; cont. monitor 2. Epistaxis - packing was out from last night; no bleeding at this moment; managed by ENT 3. Anemia - Hgb 8.2 today from 7.2 yesterday; cont. monitor CBC in AM 4. CAD with Hx of CABG in 2007 - stable; cont. monitor on tele 5. 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 DM type 2 - stable 7. GERD - stable MAR reviewed * Echo on 05/14/17 showed EF 55-60%, grade I diastolic dysfunction, mild-mod TR * From Cardiac standpoint, the pt is stable to d/c home. Review of Systems - Review of Systems Constitutional: reports: weakness, other (no appetite) EENTM: reports: no symptoms reported Respiratory: reports: no symptoms reported Cardiac (ROS): reports: no symptoms reported ABD/GI: reports: no symptoms reported : reports: no symptoms reported
[2017-05-19] MEDS: Amlodipine 10 MG TAB PO SCH (09:55)
[2017-05-19] MEDS: Ferrous Sulfate 325 MG TAB PO SCH (09:55)
[2017-05-19] MEDS: busPIRone HCl 5 MG TAB PO SCH (09:55)
[2017-05-19] MEDS: AMOXicillin 250 MG CAP PO SCH (09:55)
[2017-05-19] MEDS: guanFACINE HCl 1 MG TAB PO SCH (09:55)
[2017-05-19] MEDS: hydrALAZINE 25 MG TAB PO SCH (09:56)
[2017-05-19] MEDS: Potassium Chloride 20 MEQ TAB PO SCH (09:57)
[2017-05-19] MEDS: Nitroglycerin 2% Ointment 1 INCH/1 GM Packet TOP SCH (09:57)
[2017-05-19 13:32] VITALS: BP 150/70; TEMP 99.2
--- NOTE | 2017-05-20 13:12 | EKG ---
Test Reason : CHEST PAIN Blood Pressure : / mmHG Vent. Rate : 083 BPM Atrial Rate : 083 BPM P-R Int : 184 ms QRS Dur : 086 ms QT Int : 444 ms P-R-T Axes : 063 020 057 degrees QTc Int : 521 ms Sinus rhythm with Premature supraventricular complexes Possible Left atrial enlargement Left ventricular hypertrophy with repolarization abnormality Prolonged QT Abnormal ECG Confirmed by ISAURO BLUE ([id number]), videotape editor RAQUEL YOUNG ([id number]) on 05/20/2017 1:11:50 PM Referred By: Confirmed By:ISAURO BLUE
--- NOTE | 2017-05-22 08:35 | DIS ---
DATE OF ADMISSION: 05/14/3017 DATE OF DISCHARGE: 05/19/2017 CHIEF COMPLAINT AT THE TIME OF ADMISSION: Palpitations, hypertensive urgency, and recent epistaxis. HOSPITAL COURSE: The patient was admitted to a medical bed, where nephrotoxic drugs for minimize, blood pressure control maximized. Consultation for heart and kidneys were sought with all serial reassessments and treatment of her anxiety. Renal ultrasound obtained in very next day ordered by Dr. August showed no evidence of hydronephrosis, but there was notable bilateral pleural effusions. Dr. August saw the patient in consultation on 05/14/2017. She felt that she had acute kidney injury on top of her chronic renal failure. He just suggested adding Aldomet 250 t.i.d. to help control pressure and hopefully avoid sedation. He also agreed to that increasing hydralazine. We felt that we could consider resuming spironolactone if needed. It felt that chronic renal failure was most likely hypertensive nephropathy. Dr. Baca also saw the patient later that day. His assessment was malignant hypertension. It was felt that dietary indiscretion was part of the issue and that she might have renal artery stenosis, but he was willing to see how the patient responded to the Aldomet prior to ordering renal angiography that being a risky procedure with her diminished renal function. Next day, she was finally resting, she has had a bad reaction to IV hydralazine, so was not willing to take that medication. Her BNP had elevated to 1900. Blood pressure, however, now was down to 142/87. Blood sugars were good. Unfortunately, she started to develop some nose bleeding at this point. Initially, it was felt to be due to loosening of old clots; however, it persisted through the day such that we had to call Dr. Marcello Betts to help. We packed it, which he did on 05/15/2017 and the packing was intended to stay on it for several days. By 05/17/2017, she had rested much better. Vital signs were good. Systolic blood pressures were in the 170s, but we had significantly improved, her epistaxis was finally controlled. Dr. Salas saw the patient on 05/16/2017. It felt that her hypertensive urgency had improved and he felt that from a cardiac standpoint, they could sign off at this point. Dr. August saw the patient on 05/17/2017, her blood pressure again continued to improve 176/77. Aldomet was going to be increased to 500 three times a day. The epistaxis was holding due to the packing. It felt like 1 unit of packed RBCs that helped this patient. Because her hemoglobin had gotten down to 6.7, her hematocrit down to 20. By 05/18/2017 , after 1 unit of blood, she resumed having nosebleeds. Hemoglobin was up to 7.8, hematocrit 23.9. BUN 44, creatinine 2.08. Dr. Betts was called in for reassessing this nosebleed. By 05/19/2017, Dr. Kang saw the patient, they have been no overnight events, no cardiac events. She has been sleeping most of the day. Medications were stable. Her blood pressure is stable now at 141/67. Examination was clear, nose bleeding had finally stopped, packing had been removed. Hemoglobin was at 8.2 and she felt that she could be discharged home at this point, so she was sent home on 05/19/2017. Her medications were reconciled prior to discharge and new prescriptions were written for amlodipine 10 mg b.i.d., Abilify 2 mg at bedtime, BuSpar 5 mg t.i.d., hydralazine 100 mg t.i.d., Aldomet 500 mg t.i.d., Remeron 30 mg at bedtime. The patient stayed on her other medications except for stopping Januvia, triamterene, Zofran stopped, minoxidil stopped. DISCHARGE DIAGNOSES: 1) hypertensive urgency, 2) epistaxis, 3) generalized anxiety disorder, 4) anemia, 5) chronic kidney disease, 6) coronary artery disease status post coronary artery bypass grafting, 7) diabetes mellitus, and 7) gastroesophageal reflux disease. The time required to evaluate the chart, examined the patient, and so the patient and family's questions then returned and prepared the discharge including writing prescriptions and dictation came to 40 minutes. She will follow up with Dr. Hartman in 1 week. ALBERTO
--- NOTE | 2017-05-23 10:58 | PQF ---
ANDIE BRIDGES MICHAEL E MD [id number] [id number] CLINICAL DOCUMENTATION CLARIFICATION FORM: POST DISCHARGE Addendum to original discharge summary date: ____ Late entry note date: __ DATE: 05/23/17 ATTN: DR VINCENT Please exercise your independent, professional judgment in responding to the clarification form. Clinical indicators are provided on the bottom of this form for your review PLEASE DOCUMENT STAGE OF CKD BELOW. Please check appropriate box(s): [ x ] Chronic Renal Failure please specify Stage of CKD ___4 (see below) [ ] CKD without ARF/MURTAZA please specify Stage of CKD [ ] ESRD [ ] Other diagnosis [ ] Unable to determine In addition, please specify: Present on Admission (POA): [ ] Yes [ ] No [ ] Unable to determine National Kidney Foundation Guidelines for CKD Staging Stage I Kidney damage with normal or increased GFR GFR > 90 Stage II Kidney damage with mildly decreased GFR GFR 60-89 Stage III Kidney damage with moderately decreased GFR GFR 30-59 Stage IV Kidney damage with severely decreased GFR GFR 16-29 Stage V Kidney failure GFR<15 ESRD End Stage Renal Disease On dialysis Acute Renal Failure/Acute Kidney Failure defined as: Increases in SCr by (>) 0.3 mg/dl within 48 hours OR- Increases in SCr by (>) 1.5 times baseline, known or presumed to have occurred within the prior 7 days OR- Urine volume < 0.5 ml/kg/hour for 6 hours (KDIGO supplement 2012 for RIFLE/LAVON criteria) For continuity of documentation, please document condition throughout progress notes and discharge summary. Thank You. CLINICAL INDICATORS - SIGNS / SYMPTOMS / LABS CHRONIC RENAL FAILURE FROM HYPERTENSIVE NEPHROPATHY BUN 35 CREATININE 2.13 Lethargy or fatigue RISK FACTORS diuretics ATROPHIC KIDNEY TREATMENTS: IV fluid challenge result Pharmacy / nephrology consult Correction of electrolytes / acidosis (This form is maintained as a part of the permanent medical record) 2014 [employer] All Rights Reserved Adele [email or web address] [phone] MTDD
== END 2017-05-19 15:10 | disposition home health service (06) | DRG 291 ==
LOC: ERS 08:52 → 2SW 10:37 → OBSVTOIN 05-14 12:07 → 2NO 05-15 17:52
PROVIDERS: ADMIT Specialist; ATTEND Specialist
PROC: 30233N1 Transfusion of Nonautologous Red Blood Cells into Peripheral Vein, Percutaneous Approach (ICD-10-PCS; principal; 2017-05-17)
DX: I13.0 Hypertensive heart and chronic kidney disease with heart failure and stage 1 through stage 4 chronic kidney disease, or unspecified chronic kidney disease (principal); I50.33 Acute on chronic diastolic (congestive) heart failure; E87.5 Hyperkalemia; E11.22 Type 2 diabetes mellitus with diabetic chronic kidney disease; N17.9 Acute kidney failure, unspecified; N18.4 Chronic kidney disease, stage 4 (severe); D62 Acute posthemorrhagic anemia; I07.1 Rheumatic tricuspid insufficiency; K57.92 Diverticulitis of intestine, part unspecified, without perforation or abscess without bleeding; I16.0 Hypertensive urgency; J44.9 Chronic obstructive pulmonary disease, unspecified; I25.10 Atherosclerotic heart disease of native coronary artery without angina pectoris; R04.0 Epistaxis; I25.2 Old myocardial infarction; E78.5 Hyperlipidemia, unspecified; M10.9 Gout, unspecified; K21.9 Gastro-esophageal reflux disease without esophagitis; Z95.1 Presence of aortocoronary bypass graft; F41.9 Anxiety disorder, unspecified; F32.9 Major depressive disorder, single episode, unspecified; Z88.1 Allergy status to other antibiotic agents; Z88.2 Allergy status to sulfonamides; Z79.84 Long term (current) use of oral hypoglycemic drugs; Z79.82 Long term (current) use of aspirin; Z87.891 Personal history of nicotine dependence; N26.1 Atrophy of kidney (terminal)
CPT/HCPCS: 36415; 36416; 36430; 71045; 76700; 76770; 80048; 80053; 80061; 82550; 82553; 83036; 83880; 84443; 84484; 85007; 85025; 85027; 86850; 86900; 86901; 93005; 93306; 93798; 94640; 94760; A4216; J0360; J7620; P9016; Q0162

== ENCOUNTER 2017-05-25 17:13 | Inpatient (IN) | payer MEDICARE, BC ==
[2017-05-25 18:21] LABS: Troponin I 0.675 ng/mL (< 0.028)
[2017-05-25] MEDS ORDERED: Enoxaparin Sodium 60 MG/0.6 ML SYRINGE ONE (19:47)
[2017-05-25 22:05] LABS: Troponin I 1.134 ng/mL (< 0.028)
[2017-05-25] MEDS ORDERED: Sodium Chloride 0.9% 1,000 ML IV SCH (22:26)
[2017-05-25] MEDS ORDERED: Ondansetron HCl/PF 4 MG/2 ML Vial IVP PRN (22:26)
[2017-05-25] MEDS ORDERED: Acetaminophen 325 MG TAB PO PRN (22:26)
[2017-05-25] MEDS ORDERED: Ondansetron ODT 4 MG TAB SL PRN (22:26)
--- NOTE | 2017-05-25 22:34 | CT ---
CT BRAIN NONCONTRAST: Date: 05/25/17 Time: 7:58 p.m. HISTORY: 77-year-old female with altered mental status, unresponsive. COMPARISON: 01/31/17 FINDINGS: There is no midline shift or any other mass effect. There is no evidence of acute intracranial hemor rhage, obstructive hydrocephalus, or extraaxial fluid collection. The calvarium is intact. There is diffuse parenchymal volume loss. There are low attenuation areas in the white matter. These are no nspecific, but in a patient of this age, they are probably chronic ischemic white matter changes due to microvascular atherosclerosis. Small old cortical infarction at the right upper cerebrum. Tiny 2 m m old lacunar infarctions in the bilateral caudate nuclei were present on 01/31/17. There is an old 0 .5 cm lacunar infarction in the left caudate nucleus, which occurred sometime after the previous Ct o f 01/31/17. IMPRESSION: 1) No acute intracranial findings. 2) Involutional changes and chronic ischemic white matter changes. 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 4) Tiny old lacunar infarctions of the bilateral corpus striatum. jn [] POS: CHELLE
[2017-05-25] MEDS: Dextrose 5 %-0.45 % NaCl 1,000 ML IV SCH (22:53)
[2017-05-25] MEDS ORDERED: cloNIDine 0.2mg/24 Hour PATCH TD SCH (23:00)
[2017-05-26 02:08] LABS: #Lymphocytes 0.4 thou/uL (1.20-3.40); #Monocytes 0.4 thou/uL (0.11-0.59); #Neutrophils 2.3 thou/uL (1.40-6.50); %Eosinophils 0.8 % (0.0-10.0); %Monocytes 11.5 % (0.0-10.0); %Neutrophils 73.7 % (42.0-75.0); Hemoglobin 7.8 g/dL (12.0-16.0); Mean Corpuscular HGB CONC 32.1 g/dL (32.0-36.0); Mean Corpuscular Hemoglobin 27.2 pg (27.0-31.0); Mean Corpuscular Volume 84.8 fl (81.0-99.0); Mean Platelet Volume 7.1 fL (7.4-10.4); Platelet Count 170 thou/uL (130-400); Red Blood Cell (RBC) Count 2.88 mill/uL (4.20-5.40); White Blood Cell (WBC) Count 3.1 thou/uL (4.8-10.8)
[2017-05-26 02:42] LABS: Troponin I 1.197 ng/mL (< 0.028)
[2017-05-26 02:46] LABS: Anion Gap 13 mmol/L (10-20); BUN (Urea Nitrogen) 58 mg/dL (9.8-20.1); Calc. Creatinine Clearance 13 mL/min (70-130); Calcium 8.5 mg/dL (7.8-10.44); Carbon Dioxide 21 mmol/L (23-31); Chloride 105 mmol/L (98-107); Estimated GFR-MDRD 15; Glucose 108 mg/dL (83-110); Potassium 3.7 mmol/L (3.5-5.1); Sodium 135 mmol/L (136-145)
[2017-05-26] MEDS: Dextrose 5 %-0.45 % NaCl 1,000 ML IV SCH ×3 (05:26→19:11)
[2017-05-26] MEDS: hydrALAZINE 25 MG TAB PO SCH ×3 (08:36→17:07)
[2017-05-26] MEDS: Pantoprazole 40 MG VIAL IVP SCH (08:38)
--- NOTE | 2017-05-26 08:40 | HP ---
DATE OF ADMISSION: 05/25/2017 CHIEF COMPLAINT ON ADMISSION: Altered mental status with elevated troponin. HISTORY OF PRESENT ILLNESS: The patient is a 77-year-old female, who for the last several days has n ot been eating or drinking hardly anything, complained that she was nauseated. She finally went to [facility] to evaluate for this. There she was given some promethazine IV and then later transfe rred over to [facility] when her cardiac enzymes were noted to be elevated. She did have so me chest pain 2 days ago, but has not been complaining of that lately. She has had a very poor appet ite with chronic nausea. PAST MEDICAL HISTORY: Significant for recent hospitalization for hypertensive urgency. She also has a history of congestive heart failure, known to have 1 working kidney with frequent kidney infection s. She has had a previous PA. She has non-insulin dependent diabetes, type 2; hyperlipidemia; hyper tension; GERD; COPD. She also has a history of gout, GERD, and diverticulitis. PAST SURGICAL HISTORY: Includes cardiac bypass in the past, cholecystectomy, hysterectomy, AC bypass . PSYCHIATRIC HISTORY: Significant for anxiety and depression. SOCIAL HISTORY: She is , has continued to work until this last hospitalization. FAMILY HISTORY: Significant reaction to IV hydralazine at her last hospitalization. REVIEW OF SYSTEMS: Obtained through the . Constitutional Chief Complaint: Fatigue and weakn ess. HEENT: Has had no eye drainage or pain. No nasal discharge, no nosebleeds, no sore throat or rhinorrhea. Cardiovascular: Has denied chest pain until 2 days ago; has had no chest pain over the last 2 days. Denies palpitations. Respiratory: Has COPD and chronic cough and shortness of breath. Gastrointestinal: Has continued reports of anorexia and nausea and did vomit on the morning of adm ission. Genitourinary: Denies any painful urination or blood in urine or stool. Musculoskeletal: Denies any joint swelling or pain. Skin: There are no new rashes or lesions noted. Neurologic: Zainab garces has been lethargic and sleeping most of the time. There has been no evidence of hallucinations or delusions or trouble with mentation or areas of numbness. She has been generally weak. ALLERGIES: Known are AZITHROMYCIN, CIPROFLOXACIN, CODEINE, PHOSPHATE, LEVOFLOXACIN, NIFEDIPINE, PENI CILLINS, and SULFACETAMIDE. CURRENT MEDICATIONS: On admission include clonidine 0.1 q.i.d., hydralazine 50 mg t.i.d., omeprazole 40 mg daily, aspirin 325 mg daily, amlodipine 10 mg daily, Crestor 10 mg at bedtime, Januvia 25 mg d aily, alpha methyldopa 500 mg t.i.d. with Spiriva inhaler 18 mcg daily. PHYSICAL EXAMINATION: VITAL SIGNS: On admission include blood pressure 145/79, pulse 82, respirations 18, temperature 99.9 , room air 87% O2 sat, and on 2 liters her O2 sat went to 95%. GENERAL: This is an elderly female, who is lethargic and not responsive to evaluation at t his time, breathing without distress. HEENT: Normocephalic and atraumatic. Pupils with diminished reactivity at 2 mm bilaterally. Arcus senilis bilaterally. Nares and pharynx are clear. NECK: Supple, trachea midline, no mass. CHEST: With fair breath sounds bilaterally. No audible wheezing, rhonchi, rales. Symmetrical chest motion. BREAST EXAM: Deferred. HEART: Regular rate and rhythm, no murmurs. ABDOMEN: Scaphoid without hepatosplenomegaly. Bowel sounds normal. GENITOURINARY: Deferred. EXTREMITIES: With muscular wasting in upper and lower extremities, but no clubbing, cyanosis, or merle ma. SKIN: With poor turgor. HEENT: Pale, mild tenting on the dorsum of the hands bilaterally. No acute lesions. NEUROLOGIC: Unable to fully assess at this time due to patient's altered mental status, but Babinski 's are down. Deep tendon reflexes are 1 bilaterally, otherwise unable to assess. LABORATORY AND X-RAY FINDINGS: Lab work on admission, WBC is 4.7, hemoglobin 7.8, hematocrit 25, reta telets at 196. Sed rate elevated at 48. PT 14.7, PTT 36.2. Sodium 135, potassium 3.7, chloride 104 , CO2 of 25, BUN 58, creatinine 3.36 with a GFR of 13. Glucose 113. Hemoglobin A1c 4.9. Lactic aci d 0.4. Liver functions unremarkable. Creatinine kinase 44, CK-MB 2.4, troponin I initially elevated at 0.33 secondary followup troponin I more elevated at 0.67. BNP elevated at 2051. Urinalysis is c ompletely unremarkable. ASSESSMENT: 1. Altered mental status, probably due to extended effects of promethazine due to diminished renal f unction, unable to excrete compound. 2. Chronic kidney disease, worsened by patient's lack of p.o. intake. 3. Possible acute myocardial infarction with elevated troponins. 4. Anemia, improved from last hospitalization. 5. Chronic obstructive pulmonary disease. 6. Non-insulin dependent diabetes. 7. Anorexia with protracted nausea. PLAN: Will be ICU admission until further delineation of the cause to her altered mental status and further workup of her elevated troponins with Cardiology consultation with Dr. 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 We will notify Dr. August, who presents for the renal care and assistance with hypertension management and serially reevaluate the patient for response to therapy. Her famil y has been counseled about her code status, and in addition to being a FULL CODE, we will put in a PE G to feed her if necessary. She is currently transported to CCU in stable condition and the family h as been counseled about her guarded prognosis.
[2017-05-26] MEDS: Amlodipine 10 MG TAB PO SCH (08:42)
[2017-05-26] MEDS: Aspirin 81 mg Enteric Coated Tablet PO SCH (08:43)
[2017-05-26] MEDS ORDERED: cloNIDine 0.2mg/24 Hour PATCH TD SCH (09:00)
--- NOTE | 2017-05-26 09:55 | RAD ---
RADIOGRAPH CHEST 1 VIEW: Date: 05-26-17 Time: 8:24 a.m. HISTORY: 77-year-old female with fever. COMPARISON: 05-13-17 FINDINGS: New finding of right lower lobe airspace opacity. New finding of blunting of the right lateral costop hrenic angle and effacement of right hemidiaphragm. The blunting of the left lateral costophrenic ang le is unchanged from the previous study. Borderline or mild cardiomegaly. New finding of small airspa ce density at the medial base of the left lower lobe. Sternotomy wires. No pneumothorax. IMPRESSION: 1. Bilateral lower lobe alveolar infiltrates, right greater than left, suspicious for pneumonia, cisco cially on the right. 2. Possible small bilateral pleural effusions. 3. Ectasia and tortuosity of the thoracic aorta. SHARDA POS: CHELLE
--- NOTE | 2017-05-26 10:28 | CON ---
DATE OF CONSULTATION: 05/26/2017 REASON FOR CONSULTATION: Mandatory CCU/IMCU consultation for stay. HISTORY OF PRESENT ILLNESS: History is obtained by reviewing notes in the chart and speaking directly with the patient. She states that she called 911 yesterday because she was not feeling well. She said she had a fever to 100.8 and she was having diminished appetite. She states that she feels better this morning. She was initially transported to the hospital in [place] where she was found to have an elevated troponin. She had chest pain earlier in the day, but is no longer having chest pain. She says she feels back to her baseline currently. PAST MEDICAL HISTORY: Includes, 1. COPD. 2. Congestive heart failure. 3. Chronic renal insufficiency with one kidney. 4. Diabetes mellitus type 2. 5. Hyperlipidemia. 6. Hypertension. PAST SURGICAL HISTORY: Coronary artery bypass grafting surgery, cholecystectomy , and hysterectomy. PSYCHIATRIC HISTORY: Includes depression. SOCIAL HISTORY: Longtime smoker, 1 pack per day. 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 ALLERGIES: SULFA, CIPRO and LEVAQUIN. REVIEW OF SYSTEMS: A 12-point review of systems was negative. PHYSICAL EXAMINATION: VITAL SIGNS: Temperature 98.4, pulse 85, blood pressure 164/90, O2 sat 94%, respiratory rate 18. GENERAL: She is awake and alert and in no distress. HEENT: Pupils react. Sclerae anicteric. Oropharynx clear. NECK: No adenopathy, JVD, or bruits. LUNGS: Clear to auscultation without audible wheezing. CARDIAC: S1, S2 regular without audible murmur. ABDOMEN: Soft and nontender. EXTREMITIES: No clubbing, cyanosis, or edema. I do not find a record of a chest x-ray being performed on the patient. LABORATORY DATA: White blood cell count 3.1, hemoglobin 7.8, hematocrit 24.4, platelet count 170. Sodium 135, potassium 3.7, chloride 105, CO2 of 21, BUN 58 , creatinine 2.9, glucose 108. Troponin 1.19. ASSESSMENT: 1. Fever at the time of an initial presentation that probably needs to be further evaluated with a chest x-ray and assumed to be some component of a chronic obstructive pulmonary disease exacerbation. 2. History of chronic obstructive pulmonary disease. 3. Elevated troponin. PLAN: 1. Chest x-ray. 2. We will empirically start antibiotics as the chest x-ray suggested infiltrate. She has multiple antibiotic allergies, so if the x-ray is clear, I will probably defer on antibiotic therapy. 3. Increase frequency nebulization treatments. 70 minutes time was spent performing the consult. Of that time >50% was spent with the patient and/or on the patient's floor. MTDD
[2017-05-26 13:41] LABS: CKMB 2.4 ng/mL (0-6.6)
[2017-05-26 13:49] LABS: Critical Call Chem Troponin I RESULT DECREASING; Troponin I 0.905 ng/mL (< 0.028)
--- NOTE | 2017-05-26 14:04 | RAD ---
RADIOGRAPH ABDOMEN ONE VIEW: 05/26/2017 12:42 p.m. HISTORY: A 77-year-old female with abdominal pain. Rule out bowel obstruction. FINDINGS: There is a large, broad region of low attenuation at the lateral aspect of the right abdomen, extendi ng from the right upper quadrant to the right iliac crest. It is uncertain whether this is a skin fo ld or represents pneumoperitoneum. Skin fold is favored, but further evaluation is recommended. The re is prominent gas in a few loops of colon, including the splenic flexure. No evidence of gaseous g astric distention. Relative lack of small bowel gas makes it difficult to evaluate the small intesti ne. IMPRESSION: 1. Nonspecific bowel gas pattern, without convincing evidence of small bowel obstruction. 2. Large region of lucency overlying the right side of the abdomen. Skin fold versus pneumoperitone um. Recommend left lateral decubitus view of abdomen for further evaluation. POS: CHELLE
--- NOTE | 2017-05-26 16:02 | RAD ---
LEFT LATERAL DECUBITUS VIEW CHEST: 05/26/17 HISTORY: 77-year-old female with history of abdominal pain. COMPARISON: 05/26/17. FINDINGS: Bilateral pleural effusions. There are a few air fluid levels within the colon. No evidence for free intraperitoneal air. IMPRESSION: Bilateral pleural effusions. No free intraperitoneal air. Several air fluid levels within the colon. If the patient has persistent unexplained abdominal pain, followup abdomen and pelvic CT scan should be considered. POS: OFF
[2017-05-26] MEDS ORDERED: Dextrose 5% in Water 1,000 ML IV PRN (16:58)
[2017-05-26] MEDS ORDERED: Insulin Regular 300 UNITS/3 ML VIAL SC PRN ×2 (16:58)
[2017-05-26] MEDS ORDERED: Dextrose 50% Abboject 50 ML SYRINGE IVP PRN (16:58)
[2017-05-26] MEDS: Metoclopramide HCl 10 MG TAB PO SCH ×2 (17:05→20:29)
--- NOTE | 2017-05-26 18:52 | CON ---
DATE OF CONSULTATION: 05/26/2017 SERVICE: Renal Medicine. HISTORY OF PRESENT ILLNESS: Ms. Berman is a 77-year-old white female who was admitted for altered mental status. CT scan of the head was done, which was essentially showing no acute intracranial ab normality. I was speaking with the family - her 2 daughters and the concern is that she has not been eating and feels full. Her blood pressure at home is acceptable in the 150-160 systolic. We are being consulted on her acute kidney injury on top of her chronic renal failure. REVIEW OF SYSTEMS: Decreased appetite, decreased energy level. Positive for occasional sleepiness. She is positive for nausea. No vomiting, no diarrhea or constipation, no syncopal, no hematochezia, no melena, no hematemesis, no diplopia. Occasional joint pains. No new skin rash. MEDICATIONS: Currently on DuoNeb q.6 hours p.r.n., Norvasc 10 mg b.i.d., Ecotrin 81 mg q. day, cloni dine patch-TTS 2 q.7 days, Aldomet 500 mg p.o. t.i.d., hydralazine 100 mg p.o. t.i.d., Protonix 40 mg IV q. day and D5 half normal saline at 825 mL per hour. PAST MEDICAL HISTORY: 1. Labile hypertension. 2. 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 3. GERD. 4. COPD. 5. Hyperlipidemia. 6. Gout. 7. Type 2 diabetes mellitus. 8. Status post diverticulitis. PAST SURGICAL HISTORY: 1. Status post upper GI endoscopy. 2. Status post CABG. 3. Status post cardiac catheterization. 4. Status post hysterectomy. 5. Status post colonoscopy. 6. Status post open cholecystectomy. 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 Lives in [place]. , 2 children. Education; high school. Smoked for 40 years, 1 pack a da y. No IV drug abuse. Status post blood transfusion. FAMILY HISTORY: No family history of ESRD. ALLERGIES: SULFA, CIPRO and LEVAQUIN. TRAUMA: None. IMMUNIZATIONS: Up to date. HOSPITALIZATIONS: Please see past medical history. PHYSICAL EXAMINATION: VITAL SIGNS: Blood pressure is noted at 182/75 with a heart rate of 96, respiratory rate 20 and puls e ox 94%. GENERAL: Awake, supine and comfortable, not in overt distress. SKIN: Adequate turgor. HEENT: Pinkish conjunctivae, anicteric sclerae. NECK: No neck mass, no carotid bruits, no JVD. CHEST: No deformities. LUNGS: Clear breath sounds. No wheezing, no crackles. HEART: Normal sinus rhythm. Grade 2/6 systolic murmur. No gallops or rubs. ABDOMEN: Globular, soft and nontender. No masses. EXTREMITIES: No edema, no deformities. NEUROLOGIC: Awake and oriented to 3 spheres. Moving all extremities. LABORATORY DATA: Laboratories of 05/26/2017, white count 3.1, hemoglobin 7.8 and hematocrit 24.4. S odium 135, potassium 3.7, chloride 105, carbon dioxide 21, BUN 58, creatinine 2.97, glucose 108, calc ium 8.5 and CK-MB is 4.0. On 05/19/2017, creatinine 2.31. On 05/18/2017, creatinine 2.08. Urinalysis of 05/25/2017, protein is 30. No red cells, no white cells, no pigmented granular casts. Specific gravity 10/10. IMAGING DATA: CT scan of the brain, no acute intracranial abnormality. Chest x-ray of 05/26/2017, t here is a question of bilateral lower lobe alveolar infiltrates, possible small bilateral pleural eff usion, ectasia of the thoracic aorta. X-ray of the abdomen, bilateral pleural effusions, no free int raperitoneal air, several air fluid levels within the colon. ASSESSMENT AND PLAN: 1. Labile hypertension - my bias is to resume Aldomet at a smaller dose of 250 t.i.d. Her mentation is actually much improved at the present time. 2. Acute kidney injury - with a history of decreased p.o. intake, consider hemodynamically mediated renal dysfunction. Agree with current IV volume repletion with this patient. 3. Nausea - possibility of diabetic gastroparesis. Start Reglan 5 mg t.i.d. before meals and at bed time. We will check base met and CBC in a.m. I had a long discussion with the daughters regarding d iagnosis and prognosis.
[2017-05-27] MEDS: Amlodipine 10 MG TAB PO SCH ×3 (01:29→20:29)
[2017-05-27 04:42] LABS: Anion Gap 12 mmol/L (10-20); BUN (Urea Nitrogen) 49 mg/dL (9.8-20.1); Calc. Creatinine Clearance 17 mL/min (70-130); Calcium 8.3 mg/dL (7.8-10.44); Carbon Dioxide 21 mmol/L (23-31); Chloride 105 mmol/L (98-107); Estimated GFR-MDRD 20; Glucose 104 mg/dL (83-110); Sodium 135 mmol/L (136-145)
[2017-05-27 04:53] LABS: #Eosinphils 0.1 thou/uL (0.0-0.7); #Lymphocytes 0.7 thou/uL (1.20-3.40); #Monocytes 0.5 thou/uL (0.11-0.59); #Neutrophils 2.6 thou/uL (1.40-6.50); %Basophils 0.3 % (0.0-1.0); %Eosinophils 1.4 % (0.0-10.0); %Lymphocytes 16.9 % (21.0-51.0); %Monocytes 13.9 % (0.0-10.0); %Neutrophils 67.5 % (42.0-75.0); Hemoglobin 8.1 g/dL (12.0-16.0); Mean Corpuscular HGB CONC 32.3 g/dL (32.0-36.0); Mean Corpuscular Hemoglobin 27.3 pg (27.0-31.0); Mean Corpuscular Volume 84.4 fl (81.0-99.0); Mean Platelet Volume 7.6 fL (7.4-10.4); Platelet Count 212 thou/uL (130-400); RBC Distribution Width 14.2 % (11.5-14.5); Red Blood Cell (RBC) Count 2.98 mill/uL (4.20-5.40); White Blood Cell (WBC) Count 3.9 thou/uL (4.8-10.8)
[2017-05-27] MEDS: Dextrose 5 %-0.45 % NaCl 1,000 ML IV SCH (06:04)
[2017-05-27] MEDS: Metoclopramide HCl 10 MG TAB PO SCH ×2 (07:09→10:06)
[2017-05-27] MEDS: Pantoprazole 40 MG VIAL IVP SCH ×2 (09:58→20:30)
[2017-05-27] MEDS ORDERED: cefTRIAXone\\ROCEPHIN 1 GM in Sodium Chloride 0.9% 100 ML IVPB SCH (10:00)
[2017-05-27] MEDS ORDERED: Ondansetron HCl/PF 4 MG/2 ML Vial IVP PRN (10:14)
[2017-05-27] MEDS ORDERED: Metoclopramide HCl 10 MG/2 ML VIAL IVP SCH ×2 (10:15→16:00)
[2017-05-27] MEDS: hydrALAZINE 25 MG TAB PO SCH ×3 (10:20→17:17)
[2017-05-27] MEDS: Aspirin 81 mg Enteric Coated Tablet PO SCH (10:21)
[2017-05-27] MEDS: D5 1/2 NS w/20 mEq KCL 1,000 ML IV SCH ×2 (10:33→23:39)
[2017-05-27] MEDS: hydrALAZINE 20 MG/ML VIAL SLOW IVP PRN ×2 (11:11→15:13)
[2017-05-27] MEDS: cefTRIAXone\\ROCEPHIN 1 GM, Syringe 0.4 ML in Sterile Water 9.6 ML SLOW IVP SCH (11:13)
[2017-05-27] MEDS ORDERED: Potassium Chloride 20 MEQ/100 ML PREMIX BAG IVPB SCH (11:15)
--- NOTE | 2017-05-27 11:16 | PRG ---
DATE OF SERVICE: 05/27/2017 SUBJECTIVE: Ms. Berman is a 77-year-old white female seen for her acute kidney injury on top of h er chronic renal failure. She has a history of decreased p.o. intake. This morning, she tells me fabiola garces still has difficulty swallowing. For that reason, a GI consult has been done. She is currently on IV hydration. Creatinine slightly improved today with IV hydration. Blood pressure is still noted to be labile. She is having a hard time swallowing her pills. For this reason, she has been convert ed to IV hydralazine. In addition, we will be changing her transdermal clonidine from TTS-2 to TTS-3 . OBJECTIVE: VITAL SIGNS: Blood pressure is ranging from 171/79-194/73, heart rate 90, respiratory rate 20, tempe rature 98.6, pulse oximetry 96%. GENERAL: The patient is awake, seating, cachectic looking, not in overt distress. SKIN: Decreased turgor. HEENT: Slightly pale conjunctivae, anicteric sclerae. NECK: No neck mass, no carotid bruits. No JVD. CHEST: No deformities. LUNGS: Clear breath sounds, no wheezing, no crackles. HEART: Normal sinus rhythm. No murmur, no gallops, no rubs. ABDOMEN: Globular, soft, nontender, no masses. EXTREMITIES: No edema. MEDICATIONS: Of 05/27/2017, reviewed. LABORATORY: Of 05/27/2017, white count 3.9, hemoglobin 8.1. Sodium 125, potassium 4, chloride 105, carbon dioxide 21, BUN 49, creatinine 2.37, calcium 8.3. ASSESSMENT AND PLAN: 1. Acute kidney injury on top of chronic renal failure and superimposed prerenal azotemia. Slightly improved with IV hydration. 2. Labile hypertension - adjust blood pressure meds. Due to the fact, the patient is having a hard time swallowing. I will be changing the transdermal clonidine from TTS-2 to TTS-3. 3. Dysphagia/difficulty swallowing - GI consult has been done. She has also been started on Reglan. Overall, prognosis remains guarded. Recheck base met and CBC in a.m.
--- NOTE | 2017-05-27 11:28 | PRG ---
DATE OF SERVICE: 05/27/2017 SUBJECTIVE: The patient is somewhat more alert than yesterday. She is sitting up in bed. OBJECTIVE: VITAL SIGNS: Temperature is 98.6, pulse 82, respirations 20, O2 sat 96% on 2 liters, blood pressure 176/78. HEENT: Unremarkable. NECK: No JVD. LUNGS: She has crackles in the right base, left side clear. CARDIAC: S1 and S2 regular. ABDOMEN: Soft. EXTREMITIES: No edema. LABORATORY DATA: Sodium 135, potassium 3, chloride 105, CO2 of 21, BUN 49, creatinine 2.4, glucose 1 04. White blood cell count 3.9, hematocrit 25.2, platelet count 212. Her chest x-ray shows a right lower lobe infiltrate. ASSESSMENT: 1. Pneumonia with fever. 2. Chronic obstructive pulmonary disease. PLAN: The patient will be started on antibiotic therapy. I have confirmed that she is not allergic to penicillin, so we will go ahead and use Rocephin.
[2017-05-27] MEDS ORDERED: cloNIDine 0.3mg/24 Hour PATCH TD SCH (12:00)
[2017-05-27] MEDS ORDERED: Potassium Chloride 20 MEQ in Premix Bag 1 BAG IVPB SCH (12:00)
[2017-05-27] MEDS ORDERED: Ondansetron HCl/PF 4 MG/2 ML Vial IVP SCH (13:30)
[2017-05-27] MEDS ORDERED: Metoclopramide HCl 10 MG/2 ML VIAL IVP PRN (16:08)
--- NOTE | 2017-05-27 17:04 | CON ---
DATE OF CONSULTATION: 05/27/2017 REASON FOR CONSULTATION: Nausea, vomiting, and dysphagia. CONSULTING PHYSICIAN: Dr. Amando Hartman. HISTORY OF PRESENT ILLNESS: The patient is a 77-year-old female with past medical history of hyperte nsion, congestive heart failure, coronary artery disease/myocardial infarction, diabetes, hyperlipide harry, chronic kidney disease, GERD, COPD, gout, anxiety, depression, and diverticulitis, presenting wi th nausea, vomiting, dysphagia and anorexia. She was admitted to the hospital approximately 3 weeks ago with increased epistaxis that required consultation of the ENT service and the inflation of the b alloon within the nose for pressure purposes to stanch the flow of blood. She responded well to this therapy, but since then has been having worsening nausea, vomiting, and anorexia. However, upon sd malaika with the patient and her 2 daughters, they state that she has been having increasing anorexia fo r the last 6 months, but only had gotten worse within the last 3-4 weeks. Over the last 3 weeks, she has been almost constantly nauseated with or without the ingestion of food or water, and this was as sociated with increased anorexia primarily due to this increased nauseated feeling. She also endorse s dysphagia with the sensation that food is getting stuck at the level of the cricoid cartilage that will occur primarily with solid foods, but sometimes happening with liquid food as well. She denies any coughing or gagging associated with this dysphagia. With this worsening symptoms as above, she w as ultimately brought to [facility] for further evaluation. Upon her initial evaluation, fabiola garces was noted to have an increased elevation in cardiac enzymes concerning for an NSTEMI as well as now with chest x-ray findings concerning for right lower lobe pneumonia. Currently endorses subjective fevers, chills, nausea, vomiting, anorexia, dysphagia, but she denies any abdominal pain, odynophagia , hematemesis, melena or hematochezia. Of note, with this nauseated feeling, she constantly feels nauseated rather than having an increased pressure buildup in her stomach generated nausea. When she does vomit, she vomits within minutes of ingestion of any food or water, and has not been vomiting any undigested food or food that she had ea ten greater than 24 hours ago. REVIEW OF SYSTEMS: A 10 category review of systems was obtained with all responses negative except f or the pertinent positives as listed in the HPI. PAST MEDICAL HISTORY: As per HPI. PAST SURGICAL HISTORY: CABG, hysterectomy, cholecystectomy, and AC bypass. FAMILY HISTORY: Denies any GI malignancy. SOCIAL HISTORY: Denies any tobacco, alcohol or illicit drug use. OUTPATIENT MEDICATIONS: Reviewed. ALLERGIES: AZITHROMYCIN, CIPROFLOXACIN, CODEINE, PHOSPHATE, LEVOFLOXACIN, NIFEDIPINE, PENICILLIN, WATT LFACETAMIDE. PHYSICAL EXAMINATION: VITAL SIGNS: Temperature of 98.4, pulse 84, blood pressure 189/85, respiratory rate 18, satting 96% on 2 liters nasal cannula. GENERAL: The patient is lying in bed, in no acute distress. Alert and oriented x4. NECK: Supple. No JVD noted. CARDIOVASCULAR: Regular rate and rhythm with no discernible murmurs, gallops or rubs. RESPIRATORY: Clear to auscultation in the bilateral upper lung lam. Some diminished breath sound s in the right lower lung field. ABDOMEN: Normoactive bowel sounds, soft, nontender, nondistended. EXTREMITIES: No cyanosis, clubbing or edema. LABORATORY DATA: CBC with a white blood cell count of 3.9, hemoglobin 8.1, hematocrit 25.2, platelet s 212. Chemistry with sodium of 135, potassium 3, chloride 105, CO2 21, BUN 49, creatinine 2.37, glu cose 104, lipase 25. IMAGING DATA: Abdominal x-ray obtained on 05/26/2017 showed bilateral pleural effusions, several air fluid levels within the colon, but no evidence of free intraperitoneal air. Chest x-ray obtained on 05/26/2017, showed the presence of bilateral lower lobe alveolar infiltrates, right greater than lef t, suspicious for pneumonia especially on the right, ectasia and tortuosity of the thoracic aorta. ASSESSMENT AND PLAN: The patient is a 77-year-old female with past medical history of hypertension, congestive heart failure, coronary artery disease/myocardial infarction, diabetes, CKD, hyperlipidemi a, GERD, COPD, gout, anxiety, depression, and diverticulitis, presenting with nausea, vomiting, and a norexia. Nausea and anorexia: The patient states that she has been having decreased appetite for the last 6 m onths with some weight loss associated with this anorexia; however, after her recent hospitalization for epistaxis, this anorexia has significantly increased primarily due to the sensation of nausea joey t she experiences almost constantly. Along with his nausea any ingestion of solids, liquids or medic ations induces vomiting usually within seconds to minutes after ingestion. With this particular jeremy elena, she has lost more weight as well with approximately 30-40 pound weight loss within the last 6 mo nths cumulatively. She also complains of dysphagia characterized as the sensation of food and medica tions are getting stuck at the level of the cricoid cartilage in the posterior hypopharynx, but is no t associated with any coughing or gagging, raising concern for possible oropharyngeal dysphagia. At this time, it is unclear if the nauseated feeling is contributing to her dysphagia, but it is definit kashif contributing to her anorexia making her not want to eat and resulting in significant weight loss. RECOMMENDATIONS: 1. We would consult Speech Pathology service for a bedside swallow study to evaluate for possible or opharyngeal dysphagia. If possible for oropharyngeal dysphagia, her right lower lobe infiltrate coul d be potentially from aspiration pneumonia and could contribute to the current clinical picture. 2. We will schedule patient on Zofran 4 mg every 6 hours for greater nausea control and metocloprami de for any breakthrough symptoms of nausea to facilitate oral intake of food. 3. If Speech Pathology study is equivocal or negative for oropharyngeal dysphagia, we then consider upper endoscopy for evaluation of the upper GI tract; however, given the presence of elevated troponi ns and concurrent right lower lobe developing pneumonia, timing of that endoscopy will need to be hel d until stabilization of the other processes. 4. At this time, the current clinical picture is not consistent with gastroparesis and scheduled Reg jose is not indicated at this time, especially in light of no gastric emptying study being performed. If this diagnosis does become more prevalent, we would then consider gastric emptying study to confi rm this diagnosis.
[2017-05-27] MEDS: Ondansetron HCl/PF 4 MG/2 ML Vial IVP SCH ×3 (17:20→21:38)
--- NOTE | 2017-05-27 17:51 | PDOC.CTH ---
Cardiology Progress Note - Subjective She continues to have nausea and vomiting. She denies any chest pain, tightness ,pressure, SOB. - Objective Vital Signs Temp Pulse Resp BP BP Pulse Ox 05/27/17 17:17 79 05/27/17 16:00 98.3 F 79 18 185/80 H 97 05/27/17 15:20 189/85 H 05/27/17 15:13 84 05/27/17 14:45 84 187/77 H 05/27/17 14:00 92 181/84 H 05/27/17 12:00 98.4 F 92 18 180/85 H 96 05/27/17 11:20 90 194/73 H 05/27/17 11:11 90 194/73 H 05/27/17 10:21 82 171/79 H 05/27/17 10:20 82 05/27/17 09:17 98.6 F 82 20 96 05/27/17 08:33 95 05/27/17 07:00 98.6 F 82 20 176/78 H 96 Admit Weight 115 lb 8.356 oz Weight 120 lb 05/26/17 05/27/17 05/28/17 06:59 06:59 06:59 Intake Total 868 1900 387.1 Output Total 300 900 800 Balance 568 1000 -412.9 - Physical Examination General/Neuro: alert & oriented x3, NAD Neck: no JVD present Lungs: CTA, unlabored respirations Heart: RRR Abdomen: NT/ND Extremities: other: (no edema) - Telemetry Telemetry Rhythm: NSR - Labs Result Diagrams: 05/27/17 04:04 05/27/17 04:04 Troponin/CKMB CK-MB (CK-2) 2.4 ng/mL (0-6.6) 05/26/17 13:09 Troponin I 0.905 ng/mL (< 0.028) H* 05/26/17 13:09 - Assessment/Plan 1. NSTEMI 2. Nausea and vomitoing. 3. Fever 4. Hypokalemkia. PLAN: - Her presentation is certainly not typical of a cardiac issue being the main problem. Her nausea and vomiting has bene going on for the last few months and the main change she noticed to bring her to the hospital was she developed fever. Her creatinine would bge prohibitive to do LHC at this time. - Continue medical management. - No anticoagulation due to recent epistaxis.
[2017-05-28 04:19] LABS: #Eosinphils 0.1 thou/uL (0.0-0.7); #Lymphocytes 1.1 thou/uL (1.20-3.40); #Monocytes 0.6 thou/uL (0.11-0.59); #Neutrophils 3.2 thou/uL (1.40-6.50); %Basophils 0.2 % (0.0-1.0); %Eosinophils 1.7 % (0.0-10.0); %Lymphocytes 21.2 % (21.0-51.0); %Monocytes 12.8 % (0.0-10.0); %Neutrophils 64.1 % (42.0-75.0); Mean Corpuscular HGB CONC 32.5 g/dL (32.0-36.0); Mean Corpuscular Hemoglobin 28.1 pg (27.0-31.0); Mean Corpuscular Volume 86.3 fl (81.0-99.0); Mean Platelet Volume 7.9 fL (7.4-10.4); Platelet Count 247 thou/uL (130-400); RBC Distribution Width 14.3 % (11.5-14.5); Red Blood Cell (RBC) Count 3.22 mill/uL (4.20-5.40); White Blood Cell (WBC) Count 5.1 thou/uL (4.8-10.8)
[2017-05-28 04:29] LABS: Anion Gap 12 mmol/L (10-20); BUN (Urea Nitrogen) 40 mg/dL (9.8-20.1); Calc. Creatinine Clearance 20 mL/min (70-130); Calcium 8.7 mg/dL (7.8-10.44); Carbon Dioxide 19 mmol/L (23-31); Chloride 109 mmol/L (98-107); Estimated GFR-MDRD 23; Glucose 108 mg/dL (83-110); Potassium 3.3 mmol/L (3.5-5.1); Sodium 137 mmol/L (136-145)
[2017-05-28] MEDS: Ondansetron HCl/PF 4 MG/2 ML Vial IVP SCH ×3 (06:27→17:30)
[2017-05-28] MEDS: Amlodipine 10 MG TAB PO SCH ×2 (10:09→21:02)
[2017-05-28] MEDS: hydrALAZINE 25 MG TAB PO SCH ×3 (10:09→17:30)
[2017-05-28] MEDS: Aspirin 81 mg Enteric Coated Tablet PO SCH (10:09)
[2017-05-28] MEDS: Pantoprazole 40 MG VIAL IVP SCH ×2 (10:10→21:05)
--- NOTE | 2017-05-28 11:25 | RAD ---
1 VIEW CHEST: Date: 05/28/17 HISTORY: Chest pain. COMPARISON: 05/26/17. FINDINGS: There are sternotomy wires. Heart is enlarged. Pulmonary vessels are within normal limits. There are increasing bibasilar pleural and parenchymal changes. Lungs are hyperinflated. Stable apical thickeni ng. No pneumothorax. IMPRESSION: Worsening bibasilar pleural and parenchymal opacities. POS: [facility]
[2017-05-28] MEDS: cefTRIAXone\\ROCEPHIN 1 GM, Syringe 0.4 ML in Sterile Water 9.6 ML SLOW IVP SCH (12:21)
--- NOTE | 2017-05-28 14:21 | PRG ---
DATE OF SERVICE: 05/28/2017 SUBJECTIVE: Ms. Berman is much more conversant today. She is very argumentative with nursing sta ff and doctors. OBJECTIVE: VITAL SIGNS: On exam, temperature is 98.3, pulse 80, respiratory rate 20, O2 sat 98%, blood pressure 187/84. HEENT: Unremarkable. NECK: No JVD. LUNGS: A few crackles in right base. CARDIAC: S1 and S2, regular. ABDOMEN: Soft. EXTREMITIES: No edema. LABORATORY DATA: White blood cell count 5.1, hematocrit 27.8, platelet count 247. Sodium 137, potas sium 3.3, chloride 109, CO2 of 19, BUN 40, creatinine 2.1, glucose 108. ASSESSMENT: 1. Pneumonia. 2. Chronic obstructive pulmonary advanced age. RECOMMENDATION: 1. I have encouraged the patient to take her oral medication. 2. Continue the Rocephin. 3. Encouraged food intake.
[2017-05-28] MEDS: D5 1/2 NS w/20 mEq KCL 1,000 ML IV SCH (15:24)
--- NOTE | 2017-05-28 16:59 | PDOC.CTH ---
Cardiology Progress Note - Subjective Resting comfortably without issues. No more epistaxis. - Objective Vital Signs Temp Pulse Resp BP BP Pulse Ox 05/28/17 15:42 98.8 F 93 19 179/80 H 97 05/28/17 15:19 178/70 H 05/28/17 13:31 82 16 05/28/17 12:21 83 05/28/17 11:00 98.3 F 83 20 187/84 H 98 05/28/17 10:09 90 178/70 H 05/28/17 07:53 98.3 F 83 20 97 05/28/17 07:32 90 16 97 05/28/17 07:00 98.4 F 83 18 191/85 H 96 Admit Weight 115 lb 8.356 oz Weight 123 lb 3.2 oz 05/27/17 05/28/17 05/29/17 06:59 06:59 06:59 Intake Total 1900 1931.1 Output Total 900 1300 Balance 1000 631.1 - Physical Examination General/Neuro: alert & oriented x3, NAD Neck: no JVD present Lungs: unlabored respirations Heart: RRR Abdomen: NT/ND Extremities: + edema B (1+) - Telemetry Telemetry Rhythm: NSR - Labs Result Diagrams: 05/28/17 03:19 05/28/17 03:19 Troponin/CKMB CK-MB (CK-2) 2.4 ng/mL (0-6.6) 05/26/17 13:09 Troponin I 0.905 ng/mL (< 0.028) H* 05/26/17 13:09 - Assessment/Plan 1. NSTEMI 2. Nausea and vomitoing. 3. Fever 4. Hypokalemkia. PLAN: - Her creatinine would be prohibitive to do LHC at this time as well as recent bleeding. - Continue medical management. - No anticoagulation due to recent epistaxis.
--- NOTE | 2017-05-28 19:19 | PRG ---
DATE OF SERVICE: 05/28/2017 REASON FOR CONSULTATION: Nausea and vomiting and dysphagia. SUBJECTIVE: The patient states that her nausea is under much better control today. After getting sc heduled Zofran with Reglan for breakthrough. She was able to tolerate some food this morning, but wa s very upset about the nursing staff mixing in her oral medications with her food. Otherwise, she st ates that she is doing well and did not currently endorse any dysphagia, but rather sensitivity to th e taste of some foods. Currently denies any nausea, vomiting, fevers, chills, abdominal pain or odyn ophagia. OBJECTIVE: VITAL SIGNS: Temperature 98.8, pulse 93, blood pressure 179/80, respiratory rate 18, satting 97% on 2 liters nasal cannula. GENERAL: The patient is lying comfortably in bed, in no acute distress. CARDIOVASCULAR: Regular rate and rhythm. RESPIRATORY: Clear to auscultation bilaterally. ABDOMEN: Normoactive bowel sounds, soft, nontender, nondistended. EXTREMITIES: No cyanosis, clubbing or edema. LABORATORY DATA: CBC with a white blood cell count of 5.1, hemoglobin 9.0, hematocrit 27.8, platelet s 247. Chemistry with a sodium of 137, potassium 3.3, chloride 109, CO2 19, BUN 40, creatinine 2.08, glucose 108. ASSESSMENT AND PLAN: The patient is a 77-year-old female with past medical history of hypertension, congestive heart failure, coronary artery disease status post NSTEMI, diabetes, CKD, hyperlipidemia, GERD, COPD, gout, anxiety, depression, and diverticulitis, presenting with nausea, vomiting, anorexia , and dysphagia. Anorexia/dysphagia/nausea. The patient had been having decreased appetite for the last 6 months, but acceleration of this within the last 3 weeks, characterized primarily as a constant nauseated feelin g and dysphagia with a sensation that food is getting stuck at the back of her mouth at the level of the cricoid cartilage; however, with better control of her nausea with scheduled Zofran, she has been able to tolerate more food and does not endorse any dysphagia over the last 12 hours. Speech Pathol ogbetty has not been by to evaluate the patient just yet for dysphagia, but the patient is currently tole rating oral intake without any coughing or gagging, raising concern for the origin of her dysphagia. At this time, it seems as though the nauseated feeling is the primary contributor to her current cli nical state and may be contributing to anorexia and possibly dysphagia. RECOMMENDATIONS: 1. Speech Pathology will evaluate the patient tomorrow for bedside swallow study for possible oropha ryngeal dysphagia. 2. We continue antiemetics as scheduled. 3. If the swallow study by Speech Pathology is equivocal or negative for oropharyngeal dysphagia, we would consider upper GI endoscopy. 4. It seems the patient can tolerate most of her oral medications if mixed in with applesauce. We will continue to follow. Please call with any questions.
--- NOTE | 2017-05-28 20:48 | PRG ---
DATE OF SERVICE: 05/28/2017 SUBJECTIVE: Ms. Berman is feeling a little better. Denies any chest pain, shortness of breath. She still has some dysphagia. Blood pressure medications have been adjusted. She has been evaluated by GI for her dysphagia. Awaiting speech therapy to determine if she has any possible swallowing problem. No other complaints. I adjusted BP yesterday. She has some difficulty swallowing her pills. OBJECTIVE: VITAL SIGNS: Blood pressure is currently 178/70, heart rate 90, respiratory 16 , and pulse ox 97%. GENERAL: Awake, alert, comfortable, not in distress, sitting. HEENT: She has pinkish conjunctivae, anicteric sclerae. NECK: No neck mass, no carotid bruits, no JVD. CHEST: No deformities. LUNGS: Clear breath sounds. No wheezing, no crackles. HEART: Normal sinus rhythm. No murmur, no gallops, or rubs. ABDOMEN: Globular, soft, nontender. EXTREMITIES: No edema, no deformities. MEDICATIONS: On 05/28/2017 was reviewed. LABORATORY DATA: 05/28/2017 - White count 5.1, hemoglobin 9, hematocrit 27.8. Sodium 137, potassium 3.3, chloride 109, carbon dioxide 19, BUN 40, creatinine 2.08, glucose 108, and calcium 8.7. ASSESSMENT AND PLAN: 1. Labile hypertension. I adjusted Aldomet to 250 mg p.o. t.i.d. Yesterday clonidine was increased to a TTS-3 clonidine patch. I have not excluded in starting her on spironolactone at 25 mg tab once a day. I did discuss possibility of renal arteriogram and the patient declined due to the fact that had to give her contrast. 2. Dysphagia. Awaiting speech therapy evaluation. GI following. 3. Acute kidney injury on top of her chronic renal failure, much improved renal function. She received IV hydration. Creatinine now is noted at 2.08 and this was said to have peaked at 2.97 on admission. Agree with current management. [place]
[2017-05-29] MEDS: Ondansetron HCl/PF 4 MG/2 ML Vial IVP SCH ×5 (00:23→23:17)
[2017-05-29 04:44] LABS: #Eosinphils 0.2 thou/uL (0.0-0.7); #Lymphocytes 1.1 thou/uL (1.20-3.40); #Monocytes 0.6 thou/uL (0.11-0.59); #Neutrophils 2.4 thou/uL (1.40-6.50); %Basophils 0.8 % (0.0-1.0); %Lymphocytes 26.2 % (21.0-51.0); %Monocytes 12.9 % (0.0-10.0); %Neutrophils 56.1 % (42.0-75.0); Hemoglobin 8.2 g/dL (12.0-16.0); Mean Corpuscular HGB CONC 32.4 g/dL (32.0-36.0); Mean Corpuscular Hemoglobin 27.5 pg (27.0-31.0); Mean Corpuscular Volume 84.9 fl (81.0-99.0); Mean Platelet Volume 7.4 fL (7.4-10.4); Platelet Count 194 thou/uL (130-400); RBC Distribution Width 14.4 % (11.5-14.5); Red Blood Cell (RBC) Count 2.97 mill/uL (4.20-5.40); White Blood Cell (WBC) Count 4.3 thou/uL (4.8-10.8)
[2017-05-29] MEDS: D5 1/2 NS w/20 mEq KCL 1,000 ML IV SCH ×2 (04:51→18:16)
[2017-05-29 04:55] LABS: Anion Gap 10 mmol/L (10-20); BUN (Urea Nitrogen) 34 mg/dL (9.8-20.1); Calc. Creatinine Clearance 21 mL/min (70-130); Calcium 8.4 mg/dL (7.8-10.44); Carbon Dioxide 19 mmol/L (23-31); Chloride 110 mmol/L (98-107); Estimated GFR-MDRD 24; Glucose 109 mg/dL (83-110); Potassium 3.7 mmol/L (3.5-5.1); Sodium 135 mmol/L (136-145)
[2017-05-29] MEDS: Aspirin 81 mg Enteric Coated Tablet PO SCH (08:32)
[2017-05-29] MEDS: Carvedilol 3.125 MG TAB PO SCH ×2 (08:32→20:12)
[2017-05-29] MEDS: Spironolactone 25 MG TAB PO SCH (08:32)
[2017-05-29] MEDS: Amlodipine 10 MG TAB PO SCH ×2 (08:32→20:11)
[2017-05-29] MEDS: hydrALAZINE 25 MG TAB PO SCH ×3 (08:32→16:29)
--- NOTE | 2017-05-29 08:44 | CON ---
DATE OF CONSULTATION: 05/26/2017 PRIMARY CARE PHYSICIAN: Dr. Amando Hartman. PRIMARY PRODUCE LABORER: Dr. Pia Kang. FOREST FIRE OFFICER: Dr. Dilip August. REFERRING PHYSICIAN: Dr. Amando Hartman. REASON FOR CONSULTATION: Non-STEMI and chronic kidney disease stage 5. HISTORY OF PRESENT ILLNESS: Ms. Berman is a 77-year-old female with significant history of chronic obstructive pulmonary disease, hypertensive urgency, chronic kidney disease, diabetes type 2, hyperlipidemia, ex-smoker and CAD with status post CABG in 2007. Per the family member, she continues to complain of chronic fatigue and poor appetite since patient was discharged from the hospital on 05/19/2017 due to chronic nosebleed and epistaxis. She was not eating well at home and she started to complain of the back pain since this Monday, which is a similar symptom as when she has myocardial infarction and coronary artery bypass surgery in 2007. The patient's symptoms became worse, accompanied with nausea and vomiting yesterday, so the patient called an ambulance and was transferred to [facility]. At that time, the patient was found to have elevated troponin. At that time, the patient was having severe nausea, vomited. Because of that reasons, the patient was given Phenergan, some pain medicine and Reglan. However, after patient has a Phenergan, she became very lethargic per family. Due to altered mental status and elevated troponin, the patient was transferred to the [facility] in [place], [place] for the further evaluation and treatment. Also the patient's family reports that the patient has not had good bowel movement for 10 days due to the poor appetite; however, since this morning, she has multiple watery stools, so the patient's KUB was ordered to rule out any obstruction of intestine. The patient continues to nauseate; however, she denies any back pain , chest pain or discomfort in her chest, palpitation, lightheadedness, dizziness , or any other cardiac complaints at this time. The patient has a significant history of hypertension urgency. The patient's blood pressure has been 150s over 70s to 80s since last hospitalization. This morning, the patient's temperature was elevated and the patient had a chest x-ray which shows possible bilateral pneumonia. The patient was already seen by a pulmonary, Dr. Torres today. The patient has a history of coronary artery disease, status post CABG in 2007. She has chronic kidney disease secondary to left atrophic kidney. She was seen by Dr. August who is the patient's parts clerk plant maintenance. The patient's echocardiogram was done on 05/14/2017, which shows EF of 50%-60%, grade I diastolic dysfunction and mild to moderate tricuspid regurgitation. The patient 's hemoglobin this morning was 7.8, which was 8.2 before the patient was discharged from previous admissions. The patient denies any bleeding from the nose or any blood in her stool or urine at home. PAST MEDICAL HISTORY: 1. Coronary artery disease. 2. Hypertensive urgency. 3. Chronic kidney disease. 4. History of colitis. 5. Diabetes type 2. 6. Peptic ulcer disease. 7. Severe COPD. 8. Ex-smoker. 9. Diverticulitis and colitis. PAST SURGICAL HISTORY: 1. CABG in 2007. 2. Cholecystectomy. 3. Hysterectomy. 4. . FAMILY HISTORY: The patient's father due to CT. The patient's mother has a history of bypass surgery. SOCIAL HISTORY: The patient is and living with her . The patient's children live close by and they are alive and well. She has a long history of smoking 1 pack a day, but she quit. She denies any alcohol or illicit drug abuse. ALLERGIES: CEFIXIME, SUPRAX, , SULFA, SULFONAMIDE ANTIBIOTIC, HYDROCHLOROTHIAZIDE, LOSARTAN. She also has a history of intolerance to CIPRO, PENICILLIN, and LEVAQUIN. HOME MEDICATIONS: Spiriva 18 mcg once a day, omeprazole 40 mg once a day, aspirin 325 mg once a day, Crestor 10 mg once a day, DuoNebs 4 times a day as needed, Colace 2 capsules every day, ferrous sulfate once a day, ranitidine 150 mg once a day, clonidine 0.1 mg 4 times a day, Lasix 20 mg twice a day as needed , Tenex 2 mg twice a day, Norvasc 10 mg twice a day, Abilify 2 mg at bedtime, BuSpar 5 mg 3 times a day, hydralazine 100 mg 3 times a day, Aldomet 500 mg 3 times a day, Remeron 30 mg once a day. REVIEW OF SYSTEMS: The following complete review of systems is negative, unless otherwise mentioned in the HPI or below. Constitutional: According to patient's family's report, the patient has lost some weight, although negative to sense of well being, ability to conduct usual activities, exercise tolerance. Skin: Rash, itching, breasts lumps, tenderness, swelling, nipple discharge. Eyes: Vision change, double vision, tearing, blind spots, pain. HEENT: Headache, vertigo, lightheadedness, nose bleeding. After the patient was discharged from a previous hospitalization, colds, obstruction, discharge, dental difficulties, gingival bleeding, dentures, neck stiffness, pain, tenderness, masses in thyroid or other areas. Cardiovascular: Precordial pain , substernal distress, palpitations, syncope, dyspnea on exertion, orthopnea, nocturnal dyspnea, edema, cyanosis, varicosis, claudication. Respiratory: Positive for shortness of breath; however, negative for pain, stridor, hemoptysis. Gastrointestinal: Positive for appetite, constipation, diarrhea, but negative for the blood in the stool at this moment. The patient had a guaiac to check. Genitourinary: Urgency, frequency, dysuria, nocturia, hematuria, polyuria, oliguria, unusual color of urine. Musculoskeletal: Pain, swelling, redness or heat on muscle or joint limited motion. Neurologic: Seizure, conversion, paralysis, tremor, incoordination. Psychiatric: Emotional problem, anxiety, depression, previous psychiatric care, unusual perception, hallucinations. PHYSICAL EXAMINATION: VITAL SIGNS: Blood pressure is 182/75, pulse is 90s with sinus rhythm, temperature 99.5, O2 sat 96% with room air. GENERAL: Well-developed, but without in acute distress. HEAD: Normocephalic, atraumatic. EYES: Extraocular muscle movement intact. She wears glasses. ENT: Oral and nasal mucosa are moist without lesion. NECK: No JVD. Neck is supple and normal range of motion. LUNGS: Coarse bilaterally, but no wheezing at this moment. CARDIOVASCULAR: Regular rate and rhythm, normal S1, S2. There are no S3, S4. There are significant murmur to left middle sternal border, but negative for hives, thrill, or rub noted. There are 2+ pulses in bilateral dorsal pedis, posterior tibials and popliteal. Carotid pulses are present without bruit or thrill. No edema in the bilateral lower extremities. ABDOMEN: She feels tenderness to palpate. Bowel sounds are hypoactive. MUSCULOSKELETAL: Able to move all extremities. SKIN: Warm and dry lower extremities but no skin rash, lesion or bruise noted. NEUROLOGIC: Alert, oriented x4, but very lethargic. PSYCHIATRIC: Mood and affect are normal. EKG: EKG shows normal sinus rhythm without ST segment change or T-wave inversion. LABORATORY DATA: WBC 3.1; hemoglobin 7.8, which was 8.2 prior to discharge from the last hospitalization; hematocrit 24.4, platelets 170. Sodium 135, potassium 3.7, BUN 58, creatinine 2.97, glucose 108, CK-MB 4.0. Troponin 0.675 , 1.134, and 1.197. The patient's chest x-ray shows bilateral lower alveolar infiltrate. Right size greater than left side which is suspicious for pneumonia. A CT brain shows no acute intracranial finding. The patient is going to have a KUV for history of constipation for more than 10 days and multiple watery stools today. ASSESSMENT AND PLAN: 1. Elevated troponin level. At this moment, the patient does not have any back pain or any ST segment change in the property assessment monitor, although the patient's troponin level was high. I would like to go ahead and order one more troponin level check to see if troponin level is coming down. According to family member, the patient is having had severe episode of nausea before and vomiting prior to this admission and also due to the patient's anemia and creatinine level, the patient is not a good candidate for cardiac catheterization. We would like to continue to monitor the patient's condition on the telemetry at this moment. She is on aspirin 81 mg and at this moment, however, I am hesitant to start any Lovenox or any heparin due to the anemia possibly secondary to the GI bleed and also she is on any beta ranulfo due to history of severe chronic obstructive pulmonary disease, on BROOKE inhibitor due to chronic kidney disease. 2. Hypertension. Her blood pressure is high, but the patient's blood pressure history during this admission is stable. We would like to continue to monitor her blood pressure and we would like to adjust the patient's blood pressure medication as appropriate. 3. Nausea, vomited. The patient's condition is stable at this moment, which is managed by the patient's primary care doctor. 4. Coronary artery disease with a history of CABG in 2007. The patient's condition is stable at this moment, we would like to continue to monitor the patient on the telemetry. 4. Chronic kidney disease. The patient is seen by Dr. August who is patient's primary parts clerk plant maintenance. 5. History of diverticulitis and colitis. The patient's KUB was ordered to rule out any gastrointestinal bleed for anemia possibly secondary to the GI bleed. 6. Chronic obstructive pulmonary disease. The patient's condition is stable at this time. She is following by Pulmonary at this moment. 7. Diabetes type 2 which is managed by patient's primary care doctor. Thank you very much for allowing the Cardiology service to participate in the care of this patient We will follow along with patient's care team and make further recommendation as appropriate. ALBERTO
--- NOTE | 2017-05-29 08:46 | PDOC.CTH ---
<Danii De Paz - Last Filed: 05/29/17 09:28> Cardiology Progress Note - Subjective The pt seen and examined. No overnight events. No cardiac complaints. She is more wake today. No nausea with taking medication. - Objective Vital Signs Temp Pulse Resp BP BP Pulse Ox 05/29/17 07:19 98 05/29/17 07:18 83 16 98 05/29/17 04:00 98.5 F 82 16 173/77 H 97 05/29/17 00:49 86 16 97 05/29/17 00:00 98.8 F 95 16 174/68 H 95 05/28/17 23:00 94 16 169/75 H 94 L 05/28/17 22:00 187/80 H 05/28/17 21:02 85 187/80 H 05/28/17 21:00 98.7 F 85 16 187/80 H 98 Admit Weight 115 lb 8.356 oz Weight 123 lb 8 oz 05/28/17 05/29/17 05/30/17 06:59 06:59 06:59 Intake Total 1931.1 1200 Output Total 1300 550 Balance 631.1 650 - Physical Examination General/Neuro: alert & oriented x3 Neck: no JVD present Lungs: other: (coases) Heart: RRR Abdomen: soft Extremities: other: (2+ pitting edema in BLE) - Telemetry Telemetry Rhythm: SR - Labs Result Diagrams: 05/29/17 04:13 05/29/17 04:13 Troponin/CKMB CK-MB (CK-2) 2.4 ng/mL (0-6.6) 05/26/17 13:09 Troponin I 0.905 ng/mL (< 0.028) H* 05/26/17 13:09 - Assessment/Plan 1. NSTEMI - Stable; no good candidate for LHC due to CKD and Hgb level 2. Labile HTN - on Clonidine 0.3mg patch, Coreg 3.125mg BID, Hydralazine 100mg TID, Aldomet 250mg TID, and Spironodactone 25mg daily. At this moment, keep SBP < 200 per nephrology service; Managed by Industrial Technology Education Teacher; 3. Nausea and vomitoing - Stable with schedule Zofran and Protonix; managed by GI 4. CAD with Hx of CABG in 2007 - stable; cont. monitor on tele 5. CKD - improving with IV fluid; managed by director of mobile marketing; The pt refused to have renal angiogram at this time 6. COPD - stable with 1LNC; Receiving Rocephin managed by home restoration service cleaner 7. DM type 2 - on ACHS BG check with ss Insulin; managed by PCP 8. Anemia - Hgb 8.2 today from 9.0 yesterday. 9. Hx of Diverticultitis - stable 10. Hypokalemkia - improved today MAR reviewed Review of Systems - Review of Systems Constitutional: reports: no symptoms reported EENTM: reports: no symptoms reported Respiratory: reports: no symptoms reported Cardiac (ROS): reports: no symptoms reported ABD/GI: reports: no symptoms reported : reports: no symptoms reported <Will Kang - Last Filed: 05/29/17 16:23> Cardiology Progress Note - Objective Vital Signs Temp Pulse Pulse Pulse Resp BP BP 05/29/17 15:00 98.1 F 87 20 05/29/17 13:44 74 19 05/29/17 13:27 78 80 170/76 H 05/29/17 12:53 86 190/84 H 05/29/17 11:00 98.9 F 86 24 H 05/29/17 08:33 183/67 H 05/29/17 08:32 83 183/84 H 05/29/17 08:00 98.5 F 83 17 05/29/17 07:19 05/29/17 07:18 83 16 05/29/17 07:00 98.5 F 84 17 BP BP Pulse Ox Pulse Ox Pulse Ox 05/29/17 15:00 177/89 H 94 L 05/29/17 13:44 99 05/29/17 13:27 173/72 H 98 97 05/29/17 12:53 05/29/17 11:00 174/90 H 97 05/29/17 08:33 05/29/17 08:32 05/29/17 08:00 96 05/29/17 07:19 98 05/29/17 07:18 98 05/29/17 07:00 183/84 H 96 Admit Weight 115 lb 8.356 oz Weight 123 lb 8 oz 05/28/17 05/29/17 05/30/17 06:59 06:59 06:59 Intake Total 1931.1 1200 Output Total 1300 550 Balance 631.1 650 - Labs Result Diagrams: 05/29/17 04:13 05/29/17 04:13 Troponin/CKMB CK-MB (CK-2) 2.4 ng/mL (0-6.6) 05/26/17 13:09 Troponin I 0.905 ng/mL (< 0.028) H* 05/26/17 13:09 - Assessment/Plan Pt. seen and eval. by me. I agree with the A/P by the DIE HARDENER. She is feeling better today and did eat better. Continue conservative cardiac care. Chest clear. RRR. mild lower leg edema.
[2017-05-29] MEDS: Pantoprazole 40 MG VIAL IVP SCH ×2 (08:49→20:11)
--- NOTE | 2017-05-29 09:53 | PRG ---
DATE OF SERVICE: 05/29/2017 SUBJECTIVE: Ms. Berman is 77-year-old white female being followed up by the Renal Service for her labile hypertension and chronic renal failure. She is feeling a little better. I have increased he r Aldomet to 250 mg p.o. t.i.d. In addition, patient has also been started on her spironolactone for better BP control and for the mild hypokalemia. This morning, she is feeling better. She has been evaluated by Speech Therapy and she had no overt swallowing disorder except for a decrease in time to swallow. The feeling is that this may improve over time. GI is also following this patient. OBJECTIVE: VITAL SIGNS: Blood pressure is 183/84, heart rate 83, respiratory rate 16, pulse ox 98%. GENERAL: Awake, supine, comfortable, not in distress. SKIN: Adequate turgor. HEENT: She has slightly pale conjunctivae, anicteric sclerae. NECK: No neck mass, no carotid bruits, no JVD. CHEST: No deformities. LUNGS: Clear breath sounds, no wheezing, no crackles. HEART: Normal sinus rhythm. No murmur, no gallops, no rubs. ABDOMEN: Globular, soft, nontender. No masses. EXTREMITIES: No edema, no deformities. MEDICATIONS: Medications of 05/29/2017 reviewed. LABORATORY DATA: Laboratories of 05/29/2017; white count 4.3, hemoglobin 8.2. Sodium 135, potassium 3.7, chloride 110, carbon dioxide 19, BUN 34, creatinine 2.04, and calcium 8.4. ASSESSMENT AND PLAN: 1. Chronic renal failure/acute kidney injury - stabilizing renal function. Creatinine noted at 2.04 , which is near baseline. She currently has a glomerular filtration rate of 24 mL per minute. There is no indication for any dialytic intervention. Continue current management. 2. Mild hypokalemia, improved - also patient has started on spironolactone. 3. Labile hypertension. Continue current blood pressure medications. Continue spironolactone and c urrent dose of Aldomet. Please note she is not able to tolerate the 500 mg tab b.i.d. due to the fac t that it makes her too groggy. At that time, when I reviewed her medication she was taking guanfaci ne at home, but she has discontinued this. 4. Mild dysphagia - GI following. 5. Anemia. If persistent, consider iron supplementation plus/minus Epogen. We will recheck another basic metabolic panel and CBC in a.m.
[2017-05-29] MEDS: cefTRIAXone\\ROCEPHIN 1 GM, Syringe 0.4 ML in Sterile Water 9.6 ML SLOW IVP SCH (12:48)
--- NOTE | 2017-05-29 14:31 | PRG ---
DATE OF SERVICE: 05/29/2017 SUBJECTIVE: The patient says she is feeling better. She is not having any nausea, vomiting. She re ports she is able to swallow her pills and she has eaten some today. She does not want to have any f urther evaluation for her swallowing. OBJECTIVE: VITAL SIGNS: Temperature is 98.9, pulse 74, respiratory rate 19, blood pressure 190/84. CHEST: Clear. CARDIOVASCULAR: Regular rate and rhythm. ABDOMEN: Benign. LABORATORY DATA: Shows sodium 135, chloride 110, CO2 is 19, BUN 34, creatinine 2.04. CBC shows a wh ite blood cell count 4.3, hemoglobin 8.2, hematocrit of 25.2. ASSESSMENT: 1. Nausea and vomiting -- patient reports this is resolved and she wants no further intervention at this time. She reports she has gained 7 pounds since her lowest weight 116. 2. Dysphagia -- resolved according to patient. 3. Coronary artery disease. 4. Myocardial infarction. 5. Chronic obstructive pulmonary disease. RECOMMENDATIONS: Continue present course. We will evaluate patient further when the patient concurs or if she has more problems.
--- NOTE | 2017-05-29 15:01 | PRG ---
DATE OF SERVICE: 05/29/2017 SUBJECTIVE: Ms. Berman has no new complaints. OBJECTIVE: VITAL SIGNS: She is afebrile. Heart rates in the 80s, blood pressure 190/84, respiratory rate 19 an d oximetry is 99% on 1 liter. Blood pressure later on was 170/76. GENERAL: She has had no recurrence of her nosebleed. LUNGS: Clear with only very faint wheezes. HEART: Regular rhythm. ABDOMEN: Soft and nontender. EXTREMITIES: Without asymmetry. IMPRESSION: 1. Pneumonia with chronic obstructive pulmonary disease. 2. Nausea and vomiting, resolved. 3. Epistaxis, resolved. 4. History of anemia. 5. Acute on chronic kidney disease. Her creatinine has improved from admission from 2.97-2.04. PLAN: Continue supportive care. Probably switch her to p.o. antibiotics in the morning.
[2017-05-30 05:06] LABS: #Eosinphils 0.2 thou/uL (0.0-0.7); #Lymphocytes 0.9 thou/uL (1.20-3.40); #Monocytes 0.5 thou/uL (0.11-0.59); #Neutrophils 2.7 thou/uL (1.40-6.50); %Basophils 0.4 % (0.0-1.0); %Lymphocytes 20.8 % (21.0-51.0); %Monocytes 10.4 % (0.0-10.0); %Neutrophils 63.4 % (42.0-75.0); Hemoglobin 7.9 g/dL (12.0-16.0); Mean Corpuscular HGB CONC 32.1 g/dL (32.0-36.0); Mean Corpuscular Hemoglobin 27.3 pg (27.0-31.0); Mean Corpuscular Volume 85.2 fl (81.0-99.0); Mean Platelet Volume 7.8 fL (7.4-10.4); Platelet Count 184 thou/uL (130-400); RBC Distribution Width 14.6 % (11.5-14.5); Red Blood Cell (RBC) Count 2.91 mill/uL (4.20-5.40); White Blood Cell (WBC) Count 4.3 thou/uL (4.8-10.8)
[2017-05-30 05:19] LABS: Anion Gap 10 mmol/L (10-20); BUN (Urea Nitrogen) 34 mg/dL (9.8-20.1); Calc. Creatinine Clearance 20 mL/min (70-130); Calcium 8.7 mg/dL (7.8-10.44); Carbon Dioxide 20 mmol/L (23-31); Chloride 110 mmol/L (98-107); Estimated GFR-MDRD 23; Glucose 113 mg/dL (83-110); Potassium 4.7 mmol/L (3.5-5.1); Sodium 135 mmol/L (136-145)
[2017-05-30] MEDS: D5 1/2 NS w/20 mEq KCL 1,000 ML IV SCH (05:56)
[2017-05-30] MEDS: Ondansetron HCl/PF 4 MG/2 ML Vial IVP SCH ×2 (05:57→11:43)
[2017-05-30] MEDS: hydrALAZINE 25 MG TAB PO SCH ×3 (07:34→17:26)
[2017-05-30] MEDS: Amlodipine 10 MG TAB PO SCH ×2 (07:35→20:13)
[2017-05-30] MEDS: Carvedilol 3.125 MG TAB PO SCH ×2 (07:35→20:13)
[2017-05-30] MEDS: Aspirin 81 mg Enteric Coated Tablet PO SCH (07:35)
[2017-05-30] MEDS: Spironolactone 25 MG TAB PO SCH (07:35)
[2017-05-30] MEDS: Pantoprazole 40 MG VIAL IVP SCH (07:36)
[2017-05-30] MEDS ORDERED: Ferrous Sulfate 325 MG TAB PO SCH (08:00)
--- NOTE | 2017-05-30 08:23 | PDOC.CTH ---
<Danii De Paz - Last Filed: 05/30/17 08:21> Cardiology Progress Note - Subjective The pt seen and examined. No overnight events. No cardiac complaints. Reported that she could not rest well last night due to having several diarrhea last night. - Objective Vital Signs Temp Pulse Resp BP BP BP Pulse Ox 05/30/17 07:59 76 16 96 05/30/17 07:45 97.8 F 74 22 H 96 05/30/17 07:43 97.8 F 74 22 H 164/74 H 97 05/30/17 07:35 75 164/74 H 05/30/17 07:34 75 164/74 H 05/30/17 07:19 97.7 F 75 18 170/75 H 98 05/30/17 06:02 76 20 174/80 H 97 05/30/17 04:20 98.0 F 75 18 163/79 H 95 05/30/17 02:06 65 18 140/62 96 05/30/17 00:03 97.4 F L 76 22 H 162/75 H 95 05/29/17 23:44 75 16 95 05/29/17 22:10 76 18 155/67 H 95 Admit Weight 115 lb 8.356 oz Weight 137 lb 5.568 oz 05/29/17 05/30/17 05/31/17 06:59 06:59 06:59 Intake Total 1200 2818 Output Total 550 1200 Balance 650 1618 - Physical Examination General/Neuro: alert & oriented x3 Neck: no JVD present Lungs: other: (diminished at bases) Heart: RRR Abdomen: soft Extremities: other: (2-3+ pitting BLE edema) - Telemetry Telemetry Rhythm: SR - Labs Result Diagrams: 05/30/17 04:31 05/30/17 04:31 Troponin/CKMB CK-MB (CK-2) 2.4 ng/mL (0-6.6) 05/26/17 13:09 Troponin I 0.905 ng/mL (< 0.028) H* 05/26/17 13:09 - Assessment/Plan 1. NSTEMI - Stable; no good candidate for LHC due to CKD and Hgb level 2. Labile HTN - on Clonidine 0.3mg patch, Coreg 3.125mg BID, Hydralazine 100mg TID, Aldomet 250mg TID, and Spironodactone 25mg daily. At this moment, keep SBP < 200 per nephrology service; Managed by Computer Repairer; 3. Nausea and vomitoing - Stable with schedule Zofran and Protonix; managed by GI 4. CAD with Hx of CABG in 2007 - stable; cont. monitor on tele 5. CKD - slightly worsen today from 2.04 yesterday to 2.11 today; managed by naval science teacher; The pt refused to have renal angiogram at this time 6. COPD - stable with 1LNC; Receiving Rocephin for PNA managed by lead web application developer 7. DM type 2 - on ACHS BG check with ss Insulin; managed by PCP 8. Anemia - Hgb 7.9 today from 8.2 yesterday. Possible Iron supplement or Epogen ? 9. Hx of Diverticultitis - stable 10. Hypokalemkia - improved today; On D5 with 20K IV @ 75ml/h with Spironodactone 25mg daily. MAR reviewed Review of Systems - Review of Systems Constitutional: reports: no symptoms reported EENTM: reports: no symptoms reported Respiratory: reports: no symptoms reported Cardiac (ROS): reports: no symptoms reported ABD/GI: reports: no symptoms reported : reports: no symptoms reported Musculoskeletal: reports: no symptoms reported Skin: reports: no symptoms reported <Will Kang - Last Filed: 05/30/17 11:49> Cardiology Progress Note - Objective Vital Signs Temp Pulse Resp BP BP BP Pulse Ox 05/30/17 11:00 97.7 F 79 17 169/84 H 97 05/30/17 07:59 76 16 96 05/30/17 07:45 97.8 F 74 22 H 96 05/30/17 07:43 97.8 F 74 22 H 164/74 H 97 05/30/17 07:35 75 164/74 H 05/30/17 07:34 75 164/74 H 05/30/17 07:19 97.7 F 75 18 170/75 H 98 05/30/17 06:02 76 20 174/80 H 97 05/30/17 04:20 98.0 F 75 18 163/79 H 95 05/30/17 02:06 65 18 140/62 96 05/30/17 00:03 97.4 F L 76 22 H 162/75 H 95 Admit Weight 115 lb 8.356 oz Weight 137 lb 5.568 oz 05/29/17 05/30/17 05/31/17 06:59 06:59 06:59 Intake Total 1200 2818 Output Total 550 1200 Balance 650 1618 - Labs Result Diagrams: 05/30/17 04:31 05/30/17 04:31 Troponin/CKMB CK-MB (CK-2) 2.4 ng/mL (0-6.6) 05/26/17 13:09 Troponin I 0.905 ng/mL (< 0.028) H* 05/26/17 13:09 - Assessment/Plan Pt. seen and eval. by me. I agree with the A/P by the WOODENWARE ASSEMBLER.Chest clear. RRR, minimal edema.,
--- NOTE | 2017-05-30 08:40 | PRG ---
DATE OF SERVICE: 05/30/2017 The patient had a little trouble breathing last night. She is breathing well right now. She feels o diogenes, she is ready to go home. PHYSICAL EXAMINATION: GENERAL: She is awake, alert, and oriented to person, place and time. VITAL SIGNS: Blood pressure 134/80, pulse 70, respiration rate 18. She is afebrile. NECK: Supple with no increased JVP or carotid bruit. Carotid had good upstroke with no thyromegaly. COR: Regular rate and rhythm. CHEST: Clear to auscultation and percussion upper lobes. ABDOMEN: Soft, nontender with normoactive bowel sounds. No bruit or organomegaly. EXTREMITIES: No edema. She had palpable pedal pulses. SKIN: There is no evidence of ulcer, lesion or rash. NEUROLOGIC: She is awake, alert, oriented to person, place and time. LABORATORY DATA: Her sodium is 135. Her BUN is 34, creatinine 2.11. Her H&H 7.9 and 24.8, her plat elet count is 184. White blood cell 4.3. ASSESSMENT: 1. Pneumonia. 2. Chronic obstructive pulmonary disease. 3. Epistaxis, resolved. 4. Acute on chronic kidney disease. 5. Anemia. 6. [id number] elevation myocardial infarction. 7. Hypertension. 8. History of coronary artery disease with bypass in the past. PLAN: I feel like the patient is stable enough to transfer to telemetry, so we will transfer her to telemetry and continue the same orders. The patient already has help at home she states and does n ot even want to consider going to rehab once she is dismissed from the hospital. We will follow up w [facility] lab in the morning. All questions answered to the patient's satisfaction.
[2017-05-30] MEDS ORDERED: Epoetin (ESRD) 20,000 UNITS/ML SC SCH ×2 (09:00→12:00)
--- NOTE | 2017-05-30 09:00 | PRG ---
DATE OF SERVICE: 05/30/2017 RENAL MEDICINE SUBJECTIVE: Ms. Berman is a 77-year-old white female who was admitted for labile hypertension. S he was also found to have a NSTEMI. Cardiology has wanted to do a cardiac catheterization; however, due to the renal dysfunction this was not pursued. In addition, the patient did not want to pursue t his. She was also incidentally found to have pneumonia. She is currently on antibiotics. Blood pre ssure is acceptable. Aldomet has been reinstituted at 250 mg tab t.i.d. as well as introduction of s pironolactone. Furthermore, her dysphagia is also improving spontaneously. GI is following. No oth er complaints today. The patient tells me she is feeling better. She denies any chest pain or short ness of breath. PHYSICAL EXAMINATION: VITAL SIGNS: Blood pressure 164/74 with a heart rate of 76, respiratory rate 16, temperature is 97.8 , pulse ox 96%. GENERAL: Awake, supine, comfortable, not in distress. SKIN: Adequate turgor. HEENT: Slightly pale conjunctivae, anicteric sclerae. NECK: No neck mass, no carotid bruits, no JVD. CHEST: No deformities. LUNGS: Clear breath sounds, no wheezing, no crackles. HEART: Normal sinus rhythm. No murmurs, no gallops, no rubs. ABDOMEN: Globular, soft, nontender. No masses. EXTREMITIES: No edema, no deformities. MEDICATIONS: Medications of 05/30/2017 reviewed. LABORATORY DATA: Laboratories of 05/30/2017; white count 4.3, hemoglobin 7.9. Sodium 135, potassium 4.7, chloride 110, carbon dioxide 20, BUN 34, creatinine 2.11, glucose 113, and calcium 8.7. ASSESSMENT AND PLAN: 1. Acute kidney injury on top of her chronic renal failure, stable renal function. Creatinine noted at 2.1, which still near baseline. She is currently at stage IV chronic renal failure, no indicatio n for any dialytic intervention. 2. Anemia. We will initiate Epogen - 7,500 units subcutaneously every week. Also start ferrous sul fate 325 mg b.i.d. 3. Pneumonia - on IV antibiotics - plan to be converted to p.o. antibiotics. 4. Labile hypertension, much improved with addition of spironolactone and reintroduction of the Scooby met. 5. Dysphagia - spontaneously resolved. GI following. 6. We will recheck basic metabolic panel and CBC in a.m.
[2017-05-30] MEDS ORDERED: Metoclopramide HCl 10 MG TAB PO PRN (10:23)
--- NOTE | 2017-05-30 11:41 | PRG ---
DATE OF SERVICE: 05/30/2017 SUBJECTIVE: The patient reports she is feeling better. She ate breakfast and lunch yesterday withou t any problems. She did eat some dinner, but not a lot. She has had no vomiting today or yesterday. She denied any interest in any further testing. OBJECTIVE: VITAL SIGNS: Temperature 97.7, pulse 79, respiratory rate 17, blood pressure 169/84. CHEST: Clear. CARDIOVASCULAR: Regular rate and rhythm. ABDOMEN: Benign. LABORATORY DATA: Shows hemoglobin of 7.9, hematocrit of 24.8, white blood cell count of 4.3. Chemis try shows sodium 135, chloride 110, CO2 20, BUN 34, creatinine 2.11, glucose 113. ASSESSMENT: 1. Anemia - probably anemia of chronic disease. 2. Pneumonia. 3. Chronic obstructive pulmonary disease. 4. Dysphagia - seems to have resolved. 5. Nausea and vomiting - improved, the patient is not interested in further evaluation. RECOMMENDATIONS: 1. Continue Protonix. 2. We will follow patient had a distance. Reconsult if patient is interested and further evaluate h er for dysphagia and vomiting.
[2017-05-30] MEDS: Ferrous Sulfate 325 MG TAB PO SCH (11:42)
[2017-05-30] MEDS: cefTRIAXone\\ROCEPHIN 1 GM, Syringe 0.4 ML in Sterile Water 9.6 ML SLOW IVP SCH (11:49)
[2017-05-30] MEDS: Sodium Chloride 0.9% 1,000 ML IV SCH (17:25)
[2017-05-30] MEDS: Ondansetron ODT 4 MG TAB PO PRN (17:25)
--- NOTE | 2017-05-30 18:09 | PRG ---
DATE OF SERVICE: 05/30/2017 SUBJECTIVE: Ms. Berman says she is feeling much better. She actually has an excellent appetite a nd her family is happy to report that she is eating much more than she was when she was at home. OBJECTIVE: VITAL SIGNS: She is afebrile. Heart rate is 84, respiratory rate is 22, oximetry is 94% on room air , blood pressure 164/81. Her intake and output is positive 1618 mL. LUNGS: Clear. HEART: Regular rhythm. Grade 3/6 systolic murmur is heard. ABDOMEN: Soft and nontender. Hemoglobin is 7.9 today, was 8.2 yesterday, 9.0 the day before. White count 4.3, platelets 184,000. Sodium 135, potassium 4.7, chloride 110, bicarbonate 20, BUN 34, creatinine 2.11. Creatinine was 2. 04 yesterday, 2.08 the day before, so this is essentially unchanged. IMPRESSION: 1. Anemia. 2. Pneumonia with chronic obstructive pulmonary disease. 3. Nausea and vomiting, resolved. 4. Epistaxis, resolved. 5. Poor p.o. intake leading up to this admission, much improved. 6. Acute on chronic kidney disease. Renal function is probably stable. We will continue to follow the other physicians caring for her.
[2017-05-30] MEDS: ALPRAZolam 0.25 MG TAB PO SCH (20:12)
[2017-05-31 04:34] LABS: ALT (SGPT) 62 U/L (8-55); AST (SGOT) 77 U/L (5-34); Albumin 3.2 g/dL (3.4-4.8); Alkaline Phosphatase 138 U/L (40-150); Anion Gap 11 mmol/L (10-20); BUN (Urea Nitrogen) 38 mg/dL (9.8-20.1); Bilirubin, Total 0.3 mg/dL (0.2-1.2); Calc. Creatinine Clearance 20 mL/min (70-130); Calcium 8.7 mg/dL (7.8-10.44); Carbon Dioxide 19 mmol/L (23-31); Chloride 109 mmol/L (98-107); Estimated GFR-MDRD 20; Globulin 2.4 g/dL (2.4-3.5); Glucose 113 mg/dL (83-110); Potassium 4.8 mmol/L (3.5-5.1); Protein, Total 5.6 g/dL (6.0-8.3); Sodium 134 mmol/L (136-145)
[2017-05-31 05:15] LABS: Band 3 % (5-11); Eosinophils 5 % (0-10); Hemoglobin 7.9 g/dL (12.0-16.0); Lymphocytes 18 % (21-51); MDiff Complete? YES; Mean Corpuscular HGB CONC 32.1 g/dL (32.0-36.0); Mean Corpuscular Hemoglobin 27.9 pg (27.0-31.0); Mean Corpuscular Volume 87.1 fl (81.0-99.0); Mean Platelet Volume 7.6 fL (7.4-10.4); Monocytes 7 % (0-10); Neutrophil 66 % (42-75); PLT Morphology Comment Appears Adequate; Platelet Count 173 thou/uL (130-400); RBC Distribution Width 14.5 % (11.5-14.5); RBC Morphology Normal; Reactive Lymphocytes 1 % (0-10); Red Blood Cell (RBC) Count 2.84 mill/uL (4.20-5.40); White Blood Cell (WBC) Count 4.7 thou/uL (4.8-10.8)
--- NOTE | 2017-05-31 08:33 | PDOC.CTH ---
<Danii De Paz - Last Filed: 05/31/17 08:30> Cardiology Progress Note - Subjective The pt seen and examined. No overnight events. No cardiac complaints. She is sitting at bedside with RA without difficulties. She is also having breakfast without N&V. - Objective Vital Signs Temp Pulse Resp BP Pulse Ox 05/31/17 08:20 86 16 96 05/31/17 07:51 98.4 F 86 27 H 177/84 H 92 L 05/31/17 04:10 98.5 F 90 20 163/80 H 94 L 05/31/17 00:48 79 18 96 05/31/17 00:02 98.1 F 70 18 161/69 H 94 L 05/30/17 22:08 84 20 169/77 H 93 L Admit Weight 115 lb 8.356 oz Weight 142 lb 3.17 oz 05/30/17 05/31/17 06/01/17 06:59 06:59 06:59 Intake Total 2818 3285 Output Total 1200 650 Balance 1618 2635 - Physical Examination General/Neuro: alert & oriented x3 Neck: no JVD present Lungs: other: (diminished at bases) Heart: RRR Abdomen: soft Extremities: other: (2-3+ pitting BLE edema) - Telemetry Telemetry Rhythm: SR 80s - Labs Result Diagrams: 05/31/17 03:34 05/31/17 03:34 Troponin/CKMB CK-MB (CK-2) 2.4 ng/mL (0-6.6) 05/26/17 13:09 Troponin I 0.905 ng/mL (< 0.028) H* 05/26/17 13:09 - Assessment/Plan 1. NSTEMI - Stable; no good candidate for LHC due to CKD and Hgb level 2. Labile HTN - on Clonidine 0.3mg patch, Coreg 3.125mg BID, Hydralazine 100mg TID, Aldomet 250mg TID, and Spironodactone 25mg daily. At this moment, keep SBP < 180 per nephrology service; Managed by Human Resources Operations Specialist; 3. Nausea and vomitoing - Stable with schedule Zofran and Protonix; managed by GI 4. CAD with Hx of CABG in 2007 - stable; cont. monitor on tele 5. CKD - Off IV fluid due to 2lb weight gain; managed by social service manager; The pt refused to have renal angiogram at this time 6. COPD - stable with RA; Receiving Rocephin for PNA managed by workplace relations adviser 7. DM type 2 - on ACHS BG check with ss Insulin; managed by PCP 8. Anemia - Hgb 7.9 today on Iron supplement 325mg daily. 9. Hx of Diverticultitis - stable 10. Hypokalemkia - stable; on Spironodactone 25mg daily. MAR reviewed Review of Systems - Review of Systems Constitutional: reports: weakness EENTM: reports: no symptoms reported Respiratory: reports: no symptoms reported Cardiac (ROS): reports: no symptoms reported ABD/GI: reports: no symptoms reported : reports: no symptoms reported Musculoskeletal: reports: no symptoms reported <Will Kang - Last Filed: 05/31/17 18:14> Cardiology Progress Note - Objective Vital Signs Temp Pulse Pulse Pulse Resp BP BP 05/31/17 16:36 90 166/82 H 05/31/17 15:57 98.0 F 83 23 H 05/31/17 13:22 82 16 05/31/17 12:53 82 167/81 H 05/31/17 11:30 97.4 F L 76 23 H 05/31/17 11:20 81 76 167/81 H 05/31/17 09:08 80 166/81 H 05/31/17 08:20 86 16 05/31/17 08:00 98.4 F 86 27 H 05/31/17 07:51 98.4 F 86 27 H BP BP Pulse Ox Pulse Ox Pulse Ox 05/31/17 16:36 05/31/17 15:57 166/82 H 93 L 05/31/17 13:22 96 05/31/17 12:53 05/31/17 11:30 159/74 H 94 L 05/31/17 11:20 173/70 H 91 L 93 L 05/31/17 09:08 05/31/17 08:20 96 05/31/17 08:00 92 L 05/31/17 07:51 177/84 H 92 L Admit Weight 115 lb 8.356 oz Weight 142 lb 3.17 oz 05/30/17 05/31/17 06/01/17 06:59 06:59 06:59 Intake Total 2818 3285 Output Total 1200 650 Balance 1618 2615 - Labs Result Diagrams: 05/31/17 03:34 05/31/17 03:34 Troponin/CKMB CK-MB (CK-2) 2.4 ng/mL (0-6.6) 05/26/17 13:09 Troponin I 0.905 ng/mL (< 0.028) H* 05/26/17 13:09 - Assessment/Plan Pt. seen and eval. by me. I agree with the A/P by the CLINICAL LABORATORY MANAGER. Chest : decreased BS throught , no rales or wheeze.RRR.
--- NOTE | 2017-05-31 08:51 | PRG ---
DATE OF SERVICE: 05/31/2017 HISTORY OF PRESENT ILLNESS: Ms. Berman is a 77-year-old white female being followed by the Renal Service for her acute kidney injury on top of her chronic renal failure, labile hypertension. Recent ly admitted for generalized malaise. She was found to have pneumonia as well as non-Q-wave PA. Sinc e admission she is doing better. Blood pressure is much improved. We have also started on her ronel nolactone and resumed back her Aldomet. She has refused any further invasive procedures regarding he r heart as well as to rule out renal artery stenosis. The concern is she still has decreased p.o. in take. I encouraged her to increase her p.o. intake. The patient voices no new complaints. She daylin es any chest pain or shortness of breath. PHYSICAL EXAMINATION: VITAL SIGNS: Blood pressure is ranging from 164/80 to 177/84, heart rate 86, respiratory rate is 27, pulse ox 96%, temperature 98.4. GENERAL: Awake, supine, comfortable, not in distress. SKIN: Adequate turgor. HEENT: She has slightly pale conjunctivae, anicteric sclerae. NECK: No neck mass, no carotid bruits, no JVD. CHEST: No deformities. LUNGS: Clear breath sounds, no wheezing, no crackles. HEART: Normal sinus rhythm. No murmur, no gallops or rubs. ABDOMEN: Globular, soft, nontender. No masses. EXTREMITIES: No edema, no deformities. MEDICATIONS: 05/31/2017 - Reviewed. LABORATORY: 05/31/2017 - White count 4.7, hemoglobin 7.9. Sodium 134, potassium 4.8, chloride 109, carbon dioxide 19, BUN 38, creatinine 2.36, GFR 20 mL per minute. Calcium 8.7, AST 77, ALT 62, album in is 3.2. ASSESSMENT AND PLAN: 1. Acute kidney injury on top of her chronic renal failure, slightly higher creatinine today at 2.36 . Yesterday this was 2.1. My concern is that there may be some component of prerenal azotemia. The patient has decreased p.o. intake. I started her on Nepro 1 can b.i.d. I also encouraged the patie nt to increase her p.o. intake. 2. Labile hypertension, stable. Continue current blood pressure meds. Currently on spironolactone and Aldomet. She is also on a Clonidine patch. 3. Pneumonia - on antibiotics. 4. Non-Q-wave myocardial infarction - conservative management. The patient not interested in pursui cardiac catheterization. Overall, I agree with current management.
[2017-05-31] MEDS ORDERED: Cefdinir 300 MG CAP PO SCH (09:00)
[2017-05-31 09:03] VITALS: BMI 22.9
[2017-05-31] MEDS: hydrALAZINE 25 MG TAB PO SCH ×3 (09:08→16:36)
[2017-05-31] MEDS: Spironolactone 25 MG TAB PO SCH (09:12)
[2017-05-31] MEDS: Carvedilol 3.125 MG TAB PO SCH ×2 (09:12→20:12)
[2017-05-31] MEDS: Amlodipine 10 MG TAB PO SCH ×2 (09:12→20:12)
[2017-05-31] MEDS: Aspirin 81 mg Enteric Coated Tablet PO SCH (09:12)
[2017-05-31] MEDS: Ferrous Sulfate 325 MG TAB PO SCH (12:53)
[2017-05-31] MEDS: Sodium Chloride 0.9% 1,000 ML IV SCH (16:24)
[2017-05-31] MEDS: ALPRAZolam 0.25 MG TAB PO SCH (20:12)
--- NOTE | 2017-06-01 01:11 | PRG ---
DATE OF SERVICE: 05/31/2017 SUBJECTIVE: . Ruby Berman says she is feeling better. Her thinks she is doing better a s well. Her temperature max was 99.9, blood pressure 194/90 this evening, today earlier it was 180/8 6. There is 1+, blood pressure recorded is 95/64 at 8:00, but I am not sure that is correct. OBJECTIVE: LUNGS: Her lungs are clear. HEART: Regular rhythm. ABDOMEN: Soft. She remains on room air with sats 93 % to 95%. IMPRESSION: 1. Hypertension. 2. Epistaxis, resolved. 3. Nausea and vomiting, resolved with an improving intake done daily basis. 4. Pneumonia with chronic obstructive pulmonary disease. 5. Chronic kidney disease. LABORATORY DATA: Her hemoglobin is stable at 7.9 grams. Her electrolytes are essentially unchanged. Her creatinine is 2.36, today. Her creatinine was 2.11, yesterday, 2.04 the day before. She is in positive fluid balance and has a slowly rising creatinine, so she will need to continue to be watched closely. Her intake and output was positive 2635. I will be happy to continue to follow the other physicians caring for her.
[2017-06-01] MEDS: Ondansetron ODT 4 MG TAB PO PRN (02:45)
[2017-06-01 05:34] LABS: #Basophils 0.1 thou/uL (0.0-0.2); #Eosinphils 0.3 thou/uL (0.0-0.7); #Lymphocytes 1.4 thou/uL (1.20-3.40); #Monocytes 0.5 thou/uL (0.11-0.59); #Neutrophils 3.3 thou/uL (1.40-6.50); %Basophils 0.9 % (0.0-1.0); %Eosinophils 5.4 % (0.0-10.0); %Lymphocytes 24.4 % (21.0-51.0); %Monocytes 9.3 % (0.0-10.0); Hemoglobin 8.4 g/dL (12.0-16.0); Mean Corpuscular HGB CONC 31.5 g/dL (32.0-36.0); Mean Corpuscular Hemoglobin 27.5 pg (27.0-31.0); Mean Corpuscular Volume 87.2 fl (81.0-99.0); Platelet Count 229 thou/uL (130-400); RBC Distribution Width 14.7 % (11.5-14.5); Red Blood Cell (RBC) Count 3.07 mill/uL (4.20-5.40); White Blood Cell (WBC) Count 5.6 thou/uL (4.8-10.8)
[2017-06-01 06:09] LABS: Anion Gap 13 mmol/L (10-20); BUN (Urea Nitrogen) 42 mg/dL (9.8-20.1); Calc. Creatinine Clearance 19 mL/min (70-130); Calcium 9.1 mg/dL (7.8-10.44); Carbon Dioxide 19 mmol/L (23-31); Chloride 109 mmol/L (98-107); Estimated GFR-MDRD 18; Glucose 115 mg/dL (83-110); Potassium 4.1 mmol/L (3.5-5.1); Sodium 137 mmol/L (136-145)
--- NOTE | 2017-06-01 08:08 | PRG ---
DATE OF SERVICE: 06/01/2017 SUBJECTIVE: The patient had a good night. She is resting comfortably. There is no family here. PHYSICAL EXAMINATION: VITAL SIGNS: Blood pressure is 180/80 early this morning, I do not have one for 6. Pulse 70, respir ations 18. She is afebrile. NECK: Supple. No JVP or carotid bruit. Carotid had good upstroke, no thyromegaly. COR: Regular rate and rhythm. CHEST: Symmetrical. Clear to auscultation and percussion upper lobes. ABDOMEN: Soft, nontender with normal bowel sounds. No bruit. EXTREMITIES: No edema, no cyanosis. She had palpable pulses. SKIN: There is no evidence of ulcer. lesion or rash. NEUROLOGIC: She is awake, alert to person, place, and time. LABORATORY DATA: H&H of 8.4 and 26.8, White blood cells 5.6, her creatinine is worse again to 2.59. BUN 42. ASSESSMENT: 1. Dqn-LI-vcrtwzl elevation myocardial infarction. 2. Altered mental status, resolved. 3. Chronic renal failure. 4. Hypertension. 5. Non-insulin dependent diabetes mellitus. 6. Chronic obstructive pulmonary disease. PLAN: The patient is much better than she has been over the last several days; however, I am concern ed about her kidney function slightly going up, will leave up to Nephrology. Hopefully, the patient can go home in the next day or so pending all consultants.
[2017-06-01] MEDS: hydrALAZINE 25 MG TAB PO SCH ×3 (09:27→16:44)
[2017-06-01] MEDS: Spironolactone 25 MG TAB PO SCH (09:29)
[2017-06-01] MEDS: Carvedilol 3.125 MG TAB PO SCH ×2 (09:30→21:10)
[2017-06-01] MEDS: Amlodipine 10 MG TAB PO SCH ×2 (09:30→21:10)
[2017-06-01] MEDS: Aspirin 81 mg Enteric Coated Tablet PO SCH (09:31)
[2017-06-01] MEDS: Cefdinir 300 MG CAP PO SCH (09:31)
[2017-06-01] MEDS: Lactated Ringer's 1,000 ML IV SCH ×2 (09:45→21:12)
--- NOTE | 2017-06-01 10:00 | PRG ---
DATE OF SERVICE: 06/01/2017 SUBJECTIVE: Ms. Berman is a 77-year-old white female, being followed up by the Renal Service for her labile hypertension as well as acute kidney injury on top of her chronic renal failure. The tim ent has no new complaints today. Blood pressure is stable. However, creatinine is noted to be going up. I do suspect there is a prerenal component. I had a long discussion with this patient regardin g taking adequate p.o. She will try to comply with this. No new complaints today. She does have a baseline shortness of breath. The last chest x-ray done on 05/28/2017 did not show any overt congest miguel heart failure, but infiltrates were noted, and for that reason, she is being empirically treated with antibiotics. PHYSICAL EXAMINATION: VITAL SIGNS: Blood pressure is 179/79 with a heart rate of 73, respiratory rate 16, pulse ox 93%, te mperature 97.9. GENERAL EXAM: Awake, alert, comfortable, not in overt distress. SKIN: Adequate turgor. HEENT: Slightly pale conjunctivae. Anicteric sclerae. NECK: No neck mass, no carotid bruits, no JVD. LUNGS: Decreased breath sounds. HEART: Normal sinus rhythm. No murmur, no gallops, no rubs. ABDOMEN: Globular, soft, nontender, no masses. EXTREMITIES: No edema. Medications of 06/01/2017 reviewed. LABORATORY DATA: Laboratories of 06/01/2017, white count 5.6, hemoglobin 8.4, sodium 137, potassium 4.1, chloride 109, carbon dioxide 19, BUN 42, creatinine 2.59, glucose 115, calcium is 9.1. ASSESSMENT AND PLAN: 1. Acute kidney injury/chronic renal failure, worsening creatinine. We will currently hold off the spironolactone today to see if I could get some stabilization of the renal dysfunction. This patient is also on a positive fluid balance. I probably will still empirically give her gentle volume reple tion of normal saline at 75 mL per hour. 2. Labile hypertension, acceptable. Continue current blood pressure medications except for the disc ontinuation of the spironolactone. 3. Pneumonia/pulmonary infiltrates - on p.o. antibiotics. 4. Non-Q-wave myocardial infarction, clinically asymptomatic, patient declining any invasive procedu res. 5. Anemia, stable, continuing weekly Epogen.
--- NOTE | 2017-06-01 10:15 | PRG ---
DATE OF SERVICE: 06/01/2017 This morning she is awake, alert, responsive. She is doing better, less short of breath. PHYSICAL EXAMINATION: VITAL SIGNS: Sats 92% on 2 liters, temperature 98, blood pressure 140/62. CHEST: No wheezing or crackles. CARDIAC: Normal S1, S2. No gallops. ABDOMEN: Soft, no masses. IMPRESSION: 1. Congestive heart failure. 2. Myocardial infarction. 3. Questionable right-sided pneumonia. PLAN: Antibiotics for 5 days. Pulmonary rothman she can be discharged home anytime. Follow up with [facility] primary care physician. Dr. Burch will follow at a distance.
--- NOTE | 2017-06-01 11:29 | PQF ---
CLINICAL DOCUMENTATION IMPROVEMENT CLARIFICATION FORM: ICD-10 Updated PLEASE DO AN ADDENDUM TO THE PROGRESS NOTE WITH ANY DOCUMENTATION UPDATES OR ADDITIONS AND CARRY THROUGH TO DC SUMMARY. THANK YOU. DATE: 06/01 ATTN : DR. HENRIQUE VINCENT Please exercise your independent, professional judgment in responding to the clarification form. Clinical indicators are provided on the bottom of this form for your review. Please check appropriate box(s): [ ] Pneumonia secondary to (specify organism / underlying disease) [ x] Simple Pneumonia (community acquired - nosocomial) [ ] Bronchopneumonia [ ] Pneumonia of unknown etiology [ ] Other diagnosis [ ] Unable to determine In addition, please specify: Present on Admission (POA): [ x ] Yes [ ] No [ ] Unable to determine For continuity of documentation, please document condition throughout progress notes and discharge summary. Thank You. CLINICAL INDICATORS - SIGNS / SYMPTOMS / LABS ATTENDING PN 05/28: ASSESSMENT: ? PNEUMONIA ATTENDING PN 05/29: ASSESSMENT: CHEST - GOOD BS BILAT - UNABLE TO APPRECIATE PNEUMONIA ATTENDING PN 05/30: PNEUMONIA; 05/31: PNEUMONIA - STABLE PULMONOLOGY PN 05/27 & : ASSESSMENT: 1) PNEUMONIA WITH FEVER PULMONOLOGY PN 05/29 & : ASSESSMENT: 1) PNEUMONIA WITH COPD CXR 05/26: IMPRESSION: 1) B LL ALVEOLAR INFILTRATES, R > L, SUSPICIOUS FOR PNEUMONIA ESPECIALLY ON RIGHT CXR 05/28: IMPRESSION: WORSENING BIBASILAR PLEURAL AND PARENCHYMAL OPACITIES RISK FACTORS: COPD RLL PNEUMONIA TREATMENTS: IV ANTIBIOTICS (ROCEPHIN 05/27 - ; PO OMNICEF STARTED 06/01) IVF (D5 1/2 NS 05/25 - ; LR STARTED 06/01) SUPPLEMENTAL 02 (05/25 - PRESENT) PULMONOLOGY CONSULT THANK YOU! Ludmila (This form is maintained as a part of the permanent medical record) 2014 [employer]. All Rights Reserved Ludmila Velze RN, BSN [email or web address] Office: [phone] [facility]
[2017-06-01] MEDS: Ferrous Sulfate 325 MG TAB PO SCH (13:25)
[2017-06-01] MEDS: Sodium Chloride 0.9% 1,000 ML IV SCH (16:42)
--- NOTE | 2017-06-01 18:16 | PRG ---
DATE OF SERVICE: 06/01/2017 OBJECTIVE: VITAL SIGNS: Ms. Berman's blood pressures remain in the 170-180 range, heart rates in the 70s, re spiratory rates in the low 20s. LUNGS: Completely clear. HEART: Regular rhythm. ABDOMEN: Soft. LABORATORY DATA: White count is 5.6, hemoglobin 8.4, platelets 229. Creatinine is up to 2.59, that is in spite of another positive 1325 mL fluid balance. IMPRESSION: Progressive renal dysfunction that is showing daily mild increase in her creatinine. I suspect this is because her blood pressure is better controlled and she has been on a long time accor ding to the daughter. She remains in positive fluid balance and still has a rise in creatinine, so N ephrology is hesitant to send her home. I would agree with this recommendation. We will continue to follow for possible pneumonia with her chronic obstructive pulmonary disease.
--- NOTE | 2017-06-01 19:18 | PDOC.CTH ---
Cardiology Progress Note - Subjective The pt seen and examined. No overnight events. No cardiac complaints. She is up to chair. Per family, she did not sleep well last night. She usually has more energy in AM and lethergic in PM. - Objective Vital Signs Temp Pulse Resp BP BP Pulse Ox 06/01/17 16:44 172/81 H 06/01/17 15:14 172/81 H 06/01/17 13:25 180/84 H 06/01/17 09:31 170/81 H 06/01/17 09:30 70 170/81 H 06/01/17 09:27 70 170/81 H 06/01/17 08:00 97 F L 70 22 H 170/81 H 92 L Admit Weight 115 lb 8.356 oz Weight 140 lb 1.6 oz 05/31/17 06/01/17 06/02/17 06:59 06:59 06:59 Intake Total 3285 1325 1315 Output Total 650 Balance 2635 1325 1315 - Physical Examination General/Neuro: alert & oriented x3 Neck: no JVD present Lungs: other: (very diminished at bases) Heart: RRR Abdomen: soft Extremities: other: (2+ pitting BLE edema; edema in LUE.) - Labs Result Diagrams: 06/01/17 04:42 06/01/17 04:42 Troponin/CKMB CK-MB (CK-2) 2.4 ng/mL (0-6.6) 05/26/17 13:09 Troponin I 0.905 ng/mL (< 0.028) H* 05/26/17 13:09 - Assessment/Plan 1. NSTEMI - Stable; no good candidate for LHC due to CKD and Hgb level 2. Labile HTN - on Clonidine 0.3mg patch, Coreg 3.125mg BID, Hydralazine 100mg TID, Aldomet 250mg TID. Spironodactone was d/xochitl. At this moment, keep SBP < 180 per nephrology service; Managed by Bell Captain; 3. Nausea and vomitoing - Stable with schedule Zofran and Protonix; managed by GI 4. CAD with Hx of CABG in 2007 - stable; cont. monitor on tele 5. CKD - was on NS 75ml/h; however IV fluid was held this PM due to increasing SOB and edema in BLE and LUE. Managed by virginia line attendant; The pt refused to have renal angiogram at this time 6. COPD - On 2LNC; Receiving PO anitibiotics for PNA managed by trade analyst 7. DM type 2 - on ACHS BG check with ss Insulin; managed by PCP 8. Anemia - Hgb 8.4 today; on Iron supplement 325mg daily and Epogen. 9. Hx of Diverticultitis - stable 10. Hypokalemkia - stable MAR reviewed Review of Systems - Review of Systems Constitutional: reports: weakness EENTM: reports: no symptoms reported Respiratory: reports: no symptoms reported Cardiac (ROS): reports: no symptoms reported ABD/GI: reports: no symptoms reported : reports: no symptoms reported
[2017-06-01] MEDS: ALPRAZolam 0.25 MG TAB PO SCH (21:10)
[2017-06-02 05:19] LABS: #Eosinphils 0.2 thou/uL (0.0-0.7); #Lymphocytes 0.8 thou/uL (1.20-3.40); #Monocytes 0.4 thou/uL (0.11-0.59); #Neutrophils 2.6 thou/uL (1.40-6.50); %Basophils 0.6 % (0.0-1.0); %Eosinophils 5.2 % (0.0-10.0); %Monocytes 10.9 % (0.0-10.0); %Neutrophils 63.2 % (42.0-75.0); Hemoglobin 7.6 g/dL (12.0-16.0); Mean Corpuscular HGB CONC 31.8 g/dL (32.0-36.0); Mean Corpuscular Hemoglobin 27.2 pg (27.0-31.0); Mean Corpuscular Volume 85.6 fl (81.0-99.0); Mean Platelet Volume 7.4 fL (7.4-10.4); Platelet Count 188 thou/uL (130-400); RBC Distribution Width 14.8 % (11.5-14.5); White Blood Cell (WBC) Count 4.1 thou/uL (4.8-10.8)
[2017-06-02 05:44] LABS: ALT (SGPT) 49 U/L (8-55); AST (SGOT) 46 U/L (5-34); Albumin 3.2 g/dL (3.4-4.8); Alkaline Phosphatase 124 U/L (40-150); Anion Gap 10 mmol/L (10-20); BUN (Urea Nitrogen) 46 mg/dL (9.8-20.1); Bilirubin, Total 0.3 mg/dL (0.2-1.2); Calc. Creatinine Clearance 20 mL/min (70-130); Calcium 8.8 mg/dL (7.8-10.44); Carbon Dioxide 22 mmol/L (23-31); Chloride 111 mmol/L (98-107); Estimated GFR-MDRD 19; Globulin 2.4 g/dL (2.4-3.5); Glucose 114 mg/dL (83-110); Potassium 4.1 mmol/L (3.5-5.1); Protein, Total 5.6 g/dL (6.0-8.3); Sodium 139 mmol/L (136-145)
[2017-06-02] MEDS: hydrALAZINE 25 MG TAB PO SCH ×2 (08:48→12:12)
[2017-06-02] MEDS: Aspirin 81 mg Enteric Coated Tablet PO SCH (08:49)
[2017-06-02] MEDS: Cefdinir 300 MG CAP PO SCH (08:49)
[2017-06-02] MEDS: Carvedilol 3.125 MG TAB PO SCH (08:49)
[2017-06-02] MEDS: Amlodipine 10 MG TAB PO SCH (08:49)
--- NOTE | 2017-06-02 09:17 | PRG ---
DATE OF SERVICE: 06/02/2017 SUBJECTIVE: The patient had a good night. She had her daughter spend the night with her. She has h er oxygen on. She does want to go home, but she realizes that her kidney function has been labile ov er the last several days and at what has held her stay here in the hospital. She denies any chest, a rm or back pain. She also denies any PND, orthopnea or palpitations. Her appetite is decent. She d id not want to have any inpatient rehab and therefore she did want to go home. PHYSICAL EXAMINATION: GENERAL: She is awake and alert and oriented to person, place and time. Her daughter is at bedside. VITAL SIGNS: Her blood pressure has remained labile also. Her blood pressure this morning before me dications was 180/83. Unfortunately, there is not a blood pressure post blood pressure medications a t this time. Heart rate 80, respirations 20, temperature 97.7. NECK: Neck is supple with no increased JVP or carotid bruit. Carotids had good upstroke. No thyrom egaly. COR: Regular rate and rhythm. CHEST: A few bibasilar crackles. ABDOMEN: Soft, nontender, obese with normoactive bowel sounds. EXTREMITIES: She has 1+ trace edema. She has palpable pedal pulses. SKIN: There is evidence of ulceration, lesion or rash. NEUROLOGIC: She is awake, alert, and oriented to person, place and time. Her lab this morning showed her BUN to be 46, creatinine to be 2.44. Her white blood cell was 4.1. Her H&H remains low at 7.6 and 24.0, platelet count is 188. ASSESSMENT: 1. Status post non-ST elevated myocardial infarction. 2. Chronic renal failure. 3. Hypertension. 4. Epistaxis. 5. Anxiety disorder. 6. Multiple medical problems. PLAN: I told the patient that once all is cleared then she can look at going home. However, we have had to do a lot of fine tuning of her blood pressure medications, her blood pressure and her kidney function. The patient verbalizes understanding. All questions answered to the patient's and daught er's satisfaction.
[2017-06-02] MEDS: Lactated Ringer's 1,000 ML IV SCH (10:23)
[2017-06-02 11:55] VITALS: TEMP 97.6
[2017-06-02] MEDS: Ferrous Sulfate 325 MG TAB PO SCH (12:12)
[2017-06-02 12:40] VITALS: BP 104/70
[2017-06-02] MEDS ORDERED: cloNIDine 0.3mg/24 Hour PATCH TD SCH (14:00)
--- NOTE | 2017-06-05 15:17 | DIS ---
JOSHUA Barkley dictating for Amando Hartman M.D DATE OF ADMISSION: 05/25/2017 DATE OF DISCHARGE: 06/02/2017 FINAL DIAGNOSES: 1. Epistasis. 2. Hypertension. 3. Chronic renal insufficiency. 4. Chest pain. 5. Altered mental status. 6. Chronic obstructive pulmonary disease. 7. Nra-mtapksf-icwfirukf diabetes mellitus. 8. Anorexia. 9. Non-ST elevation myocardial infarction. COMPLICATIONS: None. PROCEDURES: None. CONSULTANTS: 1. Dr. August. 2. Dr. Torres. 3. Dr. Salas. HOSPITAL COURSE: This is a pleasant female, who [facility] with the last several days had not been eating or drinking hardly anything. She went to [place] [facility] and was g iven some IV and then later transferred to [place] where cardiac enzymes were noted to be elevated . She did have some chest pain also 2 days ago. The patient did have altered level of conscious sec ondary to Phenergan and was transferred to [facility]. Upon evaluation, her white blood cells 4.7, H&H 7.8 and 25, platelets were 196, . Sodium 135, potassium normal at 3.7, lactic acid 0.4. Liver enz ymes normal. Cardiac enzymes showed a CK to be 44, CK-MB 2.4, troponin 0.33. BNP 251. UA was unrem arkable. The patient was seen by team of consultants to include Pulmonary, Cardiology, and Nephrolog y. Her medications were adjusted accordingly. She did have an abdominal x-ray, this showed a large region of lucency overlying the right side of the abdomen. Skin fold versus pneumoperitoneum, she al so had no evidence of bowel obstruction. The patient's medications were adjusted by Dr. August for her blood pressure. She also had a CT of the brain when she came in the hospital for her altered level o f conscious and this was unremarkable. She was found to have infiltrates and pleural effusion. The patient was started on IV antibiotics. She was also started on IV Reglan as well. The patient jonathan sánchez was transferred out of [facility]. Her white blood cell count was 5.1, hematocrit was 27.8. Her pot assium was 3.3. This had to be replenished. She was continued on antibiotics. She was encouraged t o have food intake, her IV fluids were eventually discontinued. Cardiology did make note that she di d have a non-ST elevated AK. However, he would continue medical management. The patient was not goi ng to be given anticoagulation secondary to recent epistasis. The patient eventually transferred to telemetry floor. She was breathing better. Her blood pressure was better controlled. She was eatin g okay. Her antibiotic was switched by mouth. The rest of her hospital course was unremarkable and on 05/30/2017, it was felt like she was able to go back home. She did not want to go to any type of correction facility or rehab facility. She had a family helping with her. The patient's IV flu ids eventually were discontinued. Her medication was adjusted accordingly. Her creatinine was chauncey r at 2.04. Her blood pressure was better. It was felt that she can go home and she was discharged o n 05/31/2017. DIET: Renal diet. ACTIVITY: As tolerated by patient. DISCHARGE MEDICATIONS: Included, 1. Spiriva 18 mcg every day. 2. Prilosec 40 mg every day. 3. Aspirin 325 mg every day. 4. Crestor 10 mg every day. 5. DuoNeb q.i.d. 6. Stool softener 2 every day. 7. Ferrous sulfate 45 mg every day. 8. Zantac 150 mg every day. 9. Clonidine 0.1 mg q.i.d. 10. Furosemide 20 mg b.i.d. p.r.n. 11. Tenex 2 mg every day. 12. Norvasc 10 mg every day. 13. Abilify 2 mg at bedtime. 14. BuSpar 5 mg t.i.d. 15. Apresoline 25 mg, give 100 t.i.d. 16. Albuterol p.r.n. 17. Methyldopa give 500 mg t.i.d. 18. Remeron 30 mg at night. 19. Xanax 0.25 mg b.i.d. FOLLOWUP: She is advised to follow up with all the consultants. She was also advised to follow up w meredith Hartman in 1 week or prior to that if she has any complications at that time. Time spent with this patient, after visiting with the patient, reviewing the chart and dictating the discharge summar y was 30 minutes.
--- NOTE | 2017-06-11 01:26 | EKG ---
Test Reason : Blood Pressure : / mmHG Vent. Rate : 073 BPM Atrial Rate : 073 BPM P-R Int : 188 ms QRS Dur : 092 ms QT Int : 430 ms P-R-T Axes : 069 028 050 degrees QTc Int : 473 ms Normal sinus rhythm Minimal voltage criteria for LVH, may be normal variant Borderline ECG Confirmed by BRITTNEE KEITH, STU ([id number]), design editor RAQUEL YOUNG ([id number]) on 06/11/2017 1:25:46 AM Referred By: Confirmed By:STU BEAULIEU MD
== END 2017-06-02 14:15 | disposition home or self-care (01) | DRG 280 ==
LOC: ERS 17:13 → CCU 22:13 → IMCU/EMU 05-26 11:42 → T4-B 05-31 18:21
PROVIDERS: ADMIT Specialist; ATTEND Specialist
DX: I21.4 Non-ST elevation (NSTEMI) myocardial infarction (principal); J18.9 Pneumonia, unspecified organism; N17.9 Acute kidney failure, unspecified; I13.2 Hypertensive heart and chronic kidney disease with heart failure and with stage 5 chronic kidney disease, or end stage renal disease; N18.5 Chronic kidney disease, stage 5; E11.22 Type 2 diabetes mellitus with diabetic chronic kidney disease; I50.9 Heart failure, unspecified; D64.9 Anemia, unspecified; J44.9 Chronic obstructive pulmonary disease, unspecified; E78.5 Hyperlipidemia, unspecified; K21.9 Gastro-esophageal reflux disease without esophagitis; N18.9 Chronic kidney disease, unspecified; I25.10 Atherosclerotic heart disease of native coronary artery without angina pectoris; E87.6 Hypokalemia; I25.2 Old myocardial infarction; F41.9 Anxiety disorder, unspecified; F32.9 Major depressive disorder, single episode, unspecified; R13.10 Dysphagia, unspecified; M10.9 Gout, unspecified; T43.3X5A Adverse effect of phenothiazine antipsychotics and neuroleptics, initial encounter; Z87.891 Personal history of nicotine dependence; Z87.11 Personal history of peptic ulcer disease; Z88.1 Allergy status to other antibiotic agents; Z88.5 Allergy status to narcotic agent; Z88.0 Allergy status to penicillin; Z88.2 Allergy status to sulfonamides; Z88.8 Allergy status to other drugs, medicaments and biological substances; Z79.84 Long term (current) use of oral hypoglycemic drugs; Z79.82 Long term (current) use of aspirin; Z79.899 Other long term (current) drug therapy; Z95.1 Presence of aortocoronary bypass graft
CPT/HCPCS: 36415; 36416; 70450; 71045; 74018; 80048; 80053; 82150; 82274; 82553; 83690; 84484; 85025; 87045; 87046; 87324; 87449; 87899; 93005; 93798; 94640; 96372; A4216; C9113; G8978-GP-CM; G8979-GP-CJ; G8996-GN-CL; G8997-GN-CI; J0696; J1650; J2405; J2765; J3480; J7050; J7620; Q0162; Q4081

== ENCOUNTER 2017-06-19 15:50 | Inpatient (IN) | payer MEDICARE, BC ==
[2017-06-19 17:00] LABS: #Eosinphils 0.2 thou/uL (0.0-0.7); #Lymphocytes 0.5 thou/uL (1.20-3.40); #Monocytes 0.4 thou/uL (0.11-0.59); #Neutrophils 3.5 thou/uL (1.40-6.50); %Basophils 0.5 % (0.0-1.0); %Eosinophils 4.3 % (0.0-10.0); %Lymphocytes 10.4 % (21.0-51.0); %Monocytes 9.3 % (0.0-10.0); %Neutrophils 75.5 % (42.0-75.0); Hemoglobin 7.9 g/dL (12.0-16.0); Mean Corpuscular HGB CONC 31.9 g/dL (32.0-36.0); Mean Corpuscular Hemoglobin 26.7 pg (27.0-31.0); Mean Corpuscular Volume 83.6 fl (81.0-99.0); Mean Platelet Volume 7.1 fL (7.4-10.4); Platelet Count 242 thou/uL (130-400); RBC Distribution Width 14.6 % (11.5-14.5); Red Blood Cell (RBC) Count 2.95 mill/uL (4.20-5.40); White Blood Cell (WBC) Count 4.7 thou/uL (4.8-10.8)
[2017-06-19 17:06] LABS: INR-International Normal Ratio 1.1; Prothrombin Time 14.8 SEC (12.0-14.7)
[2017-06-19 17:07] LABS: PTT 42.6 SEC (22.9-36.1)
[2017-06-19 17:20] LABS: ALT (SGPT) 23 U/L (8-55); AST (SGOT) 25 U/L (5-34); Albumin 3.8 g/dL (3.4-4.8); Alkaline Phosphatase 128 U/L (40-150); Anion Gap 13 mmol/L (10-20); BUN (Urea Nitrogen) 61 mg/dL (9.8-20.1); Bilirubin, Total 0.5 mg/dL (0.2-1.2); Calc. Creatinine Clearance 0 mL/min (70-130); Calcium 9.6 mg/dL (7.8-10.44); Carbon Dioxide 27 mmol/L (23-31); Chloride 100 mmol/L (98-107); Estimated GFR-MDRD 21; Globulin 3.2 g/dL (2.4-3.5); Glucose 112 mg/dL (83-110); Lipase 29 U/L (8-78); Potassium 4.3 mmol/L (3.5-5.1); Sodium 136 mmol/L (136-145)
[2017-06-19 17:27] LABS: Troponin I 0.032 ng/mL (< 0.028)
--- NOTE | 2017-06-19 19:00 | RAD ---
AP VIEW CHEST: INDICATIONS: Shortness of breath. COMPARISON: Prior exam dated 05/28/2017. FINDINGS: Small bilateral pleural effusions persist. Bibasilar air space opacity is similar. Cardiomegaly wit h pulmonary vascular congestion is similar. Midline sternotomy changes are similar. IMPRESSION: 1. Persistent bilateral pleural effusion and bibasilar air space opacity, suggestive of atelectasis or pneumonia. 2. Cardiomegaly is stable. 3. Chronic lung changes are similar to the comparison exam. POS: [facility]
[2017-06-19] MEDS ORDERED: Fentanyl 100 MCG/2 ML VIAL ONE (19:13)
[2017-06-19] MEDS ORDERED: Ondansetron ODT 4 MG TAB ONE (19:16)
--- NOTE | 2017-06-19 20:09 | CT ---
CT ABDOMEN AND PELVIS WITHOUT IV CONTRAST: INDICATIONS: Vomiting. Shortness of breath. Weight loss. COMPARISON: Noncontrast CT abdomen dated 07/25/2014. FINDINGS: There are moderate bilateral pleural effusions. There is air space consolidation within the right mi ddle lobe and lingula. There is prominent emphysema. There is moderate cardiomegaly. There are juan cified granuloma within the spleen and liver. There are bilateral renal cysts that appear largely st able. There is stable mild ectasia of the abdominal aorta. The adrenal glands are unremarkable. No draina ble fluid collection is evident. Moderate anasarca. The bladder is mildly distended. There is a mi ld to moderate amount of retained stool within the colon. There is a normal appendix in the right lo wer quadrant. There is diffuse osteopenia. No definite acute osseous abnormality is evident. IMPRESSION: 1. Air space consolidation within the right middle lobe and lingula may be related to compressive at electasis from the patient's moderate pleural effusions. Pneumonia is not excluded. 2. Moderate anasarca. 3. Mild distention of the bladder. 4. Other chronic findings as above. POS: [facility]
[2017-06-19 20:57] LABS: Bilirubin Negative (Negative); Blood, Urine Negative (Negative); Clarity CLEAR (Clear); Glucose, Urine (Dipstick) Negative (Negative); Leukocyte Trace (Negative); Nitrite Negative (Negative); Protein, Urine (Dipstick) Negative (Neg-Trace); Specific Gravity, Urine 1.014 (1.002-1.036); Urobilinogen 0.2 mg/dL (0.2-1.0)
[2017-06-19 20:58] LABS: Bacteria/HPF None Seen HPF (None Seen); Hyaline Casts/LPF 0-3 HYALINE CAST LPF (0-3 Hyaline); Pathc Cast-AUWi Flag 0.29 (0-2.49); RBC/HPF None Seen HPF (0-3)
[2017-06-19 23:12] LABS: Troponin I 0.031 ng/mL (< 0.028)
[2017-06-20] MEDS ORDERED: Sodium Chloride 0.9% 1,000 ML IV SCH ×2 (00:30→23:45)
[2017-06-20 01:23] VITALS: BMI 19.6
[2017-06-20 01:59] LABS: Troponin I 0.028 ng/mL (< 0.028)
[2017-06-20 05:53] LABS: #Eosinphils 0.2 thou/uL (0.0-0.7); #Lymphocytes 0.5 thou/uL (1.20-3.40); #Monocytes 0.5 thou/uL (0.11-0.59); #Neutrophils 3.8 thou/uL (1.40-6.50); %Basophils 0.4 % (0.0-1.0); %Eosinophils 3.8 % (0.0-10.0); %Lymphocytes 10.8 % (21.0-51.0); %Monocytes 9.3 % (0.0-10.0); %Neutrophils 75.7 % (42.0-75.0); Hemoglobin 7.4 g/dL (12.0-16.0); Mean Corpuscular HGB CONC 30.3 g/dL (32.0-36.0); Mean Corpuscular Hemoglobin 25.4 pg (27.0-31.0); Mean Corpuscular Volume 83.7 fl (81.0-99.0); Mean Platelet Volume 7.2 fL (7.4-10.4); Platelet Count 241 thou/uL (130-400); RBC Distribution Width 14.7 % (11.5-14.5); Red Blood Cell (RBC) Count 2.91 mill/uL (4.20-5.40)
[2017-06-20 06:25] LABS: Anion Gap 17 mmol/L (10-20); BUN (Urea Nitrogen) 59 mg/dL (9.8-20.1); Calc. Creatinine Clearance 18 mL/min (70-130); Calcium 9.6 mg/dL (7.8-10.44); Carbon Dioxide 25 mmol/L (23-31); Chloride 101 mmol/L (98-107); Estimated GFR-MDRD 21; Glucose 89 mg/dL (83-110); Sodium 139 mmol/L (136-145)
[2017-06-20] MEDS: cloNIDine 0.1 MG TAB PO SCH ×2 (07:49→09:02)
[2017-06-20] MEDS: hydrALAZINE 25 MG TAB PO SCH ×4 (07:50→20:13)
[2017-06-20] MEDS: Triamterene/Hydrochlorothiazide 37.5 mg/25 mg Tablet PO SCH ×2 (07:50→09:11)
[2017-06-20] MEDS ORDERED: Aspirin 325 MG TAB PO SCH (08:00)
[2017-06-20] MEDS ORDERED: Dextrose 50% Abboject 50 ML SYRINGE IVP PRN (08:26)
[2017-06-20] MEDS ORDERED: Dextrose 5% in Water 1,000 ML IV PRN (08:26)
[2017-06-20] MEDS ORDERED: Furosemide 20 MG/2 ML VIAL SLOW IVP SCH (08:30)
[2017-06-20] MEDS: Amlodipine 10 MG TAB PO SCH ×2 (08:59→20:13)
[2017-06-20] MEDS ORDERED: Triamterene/Hydrochlorothiazide 37.5 mg/25 mg Tablet PO SCH (09:00)
[2017-06-20] MEDS ORDERED: cloNIDine 0.1mg/24 Hour PATCH TD SCH (09:00)
[2017-06-20] MEDS: Aspirin 81 mg Enteric Coated Tablet PO SCH (09:00)
[2017-06-20] MEDS ORDERED: Alogliptin 6.25 MG TAB PO SCH (09:00)
[2017-06-20] MEDS ORDERED: Furosemide 20 MG TAB PO SCH (09:00)
[2017-06-20] MEDS: Ferrous Sulfate 325 MG TAB PO SCH (09:00)
[2017-06-20] MEDS: Docusate 100 MG CAP PO SCH ×2 (09:01→20:13)
[2017-06-20] MEDS: Rosuvastatin 10 MG TAB PO SCH (09:01)
[2017-06-20] MEDS: cefTRIAXone\\ROCEPHIN 1 GM, Syringe 0.4 ML in Sterile Water 9.6 ML SLOW IVP SCH (09:02)
--- NOTE | 2017-06-20 09:26 | PRG ---
DATE OF SERVICE: 06/20/2017 RENAL MEDICINE SUBJECTIVE: Ms. Berman is a 77-year-old white female with known history of chronic renal failure secondary to hypertensive nephropathy, labile hypertension, COPD, and admitted for not feeling well i n general. She had also some nausea. We are being consulted for her chronic renal failure. She also had some abdominal discomfort and nausea and for that reason, a CT scan of the abdomen was d one. It had been showing intracranial abnormality. Chest x-ray showed emphysema. REVIEW OF SYSTEMS: Positive for generalized malaise, occasional nausea, decreased appetite, no synco pal episode, no productive cough, no fever or chills, no shortness of breath, no chest pain, no gross hematuria, no dysuria, no diarrhea, no constipation, no hematochezia, no melena, no hematemesis, no fever or chills, no sore throat. Energy level is decreased. MEDICATIONS: Currently on DuoNeb q.i.d., alogliptin 6.25 mg daily, Xanax 0.25 mg b.i.d. p.r.n., Norv asc 10 mg b.i.d., aspirin 325 mg once a day, ceftriaxone 1 gram IV daily, clonidine 0.1 mg p.o. q.i.d . - not given, clonidine patch TTS 1 q.7 days, Procrit 7,500 units subcu daily, Pepcid 20 mg daily, L asix 20 mg IV daily, ferrous sulfate 325 mg a day, hydralazine 50 mg p.o. t.i.d., Atrovent neb treatm ent q.6, methyldopa 250 mg p.o. t.i.d., Protonix 40 mg daily, Maxzide 1 tab every day. PHYSICAL EXAMINATION: VITAL SIGNS: Blood pressure is 175/86, heart rate 105, respiratory rate 20, temperature 98.4, pulse ox 99%. GENERAL: Awake, alert, supine, comfortable, lethargic, not in distress. SKIN: Adequate turgor. HEENT: Slightly pale conjunctivae, anicteric sclerae. NECK: No neck mass, no carotid bruits, no JVD. CHEST: No deformities. LUNGS: Decreased breath sounds, no wheezing, no crackles. HEART: Normal sinus rhythm. No murmurs, no gallops, no rubs. ABDOMEN: Globular, soft, nontender. No masses. EXTREMITIES: Positive for edema. LABORATORY DATA: Laboratories of 06/20/2017; white count 5, hemoglobin 7.4, hematocrit 24.4, sodium 139, potassium 4, chloride 101, carbon dioxide 25, BUN 59, creatinine 2.23, GFR 21 mL per minute, glu cose 89, calcium 9.6. BNP is 1279. Troponin I 0.031. IMAGING DATA: 1. Chest x-ray of 06/19/2017 shows chronic lung changes with persistent bilateral pleural effusion a nd bibasilar airspace opacity - atelectasis. 2. CT scan of the abdomen and pelvis, moderate anasarca. ASSESSMENT AND PLAN: 1. Generalized edema - currently on diuretics. Patient is not in volume overload. Continue judicio us use of diuretics. 2. Chronic renal failure secondary to presumed hypertensive nephropathy, stable. There is no indica tion for any dialytic intervention. She is near baseline glomerular filtration rate. 3. Labile hypertension, adequate control. For the moment, continue current blood pressure medicatio ns. 4. Anemia. Start on Epogen 7,500 units every day. Continue iron supplementation. 5. Generalized malaise. No specific etiology. Continue supportive care. I do not feel this patien t is clinically uremic. We will recheck basic metabolic panel and CBC in a.m.
--- NOTE | 2017-06-20 09:56 | HP ---
REASON FOR ADMISSION: Shortness of breath. HISTORY OF PRESENT ILLNESS: This is a pleasant 77-year-old female who has a history of multiple medi juan problems to include COPD, chronic renal insufficiency and hypertension. She has been in the hospital multiple times over the last several months and presents now with a 4 da y history of orthopnea, increasing shortness of breath and lower extremity swelling. She denies any chest pain. She presented to the hospital last night and she was found to be anemic with H&H of 7.9 and 24.6. Her platelet count is 242. Her creatinine was 2.30. Her cardiac enzymes were slightly el evated. Her BNP was 1279. For this reason, she is admitted to hospital for further evaluation and t reatment. PAST MEDICAL HISTORY: 1. Chronic renal insufficiency followed by Dr. August. 2. Hypertension. 3. Anxiety. 4. Depression. 5. Gastroesophageal reflux disease. 6. Chronic obstructive pulmonary disease. 7. Diverticulitis. 8. Gout. PAST SURGICAL HISTORY: 1. Coronary artery disease with bypass in the past. 2. Cholecystectomy. 3. Hysterectomy in the past. ALLERGIES: AZITHROMYCIN, CIPRO, CODEINE, LEVOFLOXACIN, NIFEDIPINE and SULFA DRUGS. MEDICATIONS: 1. Xanax 0.25 mg b.i.d. p.r.n. 2. Norvasc 10 mg b.i.d. 3. Aspirin 81 mg 4. Clonidine 0.1 mg patch every 7 days. 5. Stool softener 100 mg b.i.d. 6. Iron 142 mg every day. 7. Lasix 20 mg daily. 8. Hydralazine 100 mg t.i.d. 9. DuoNeb 3 mL q.i.d. p.r.n. 10. Aldomet 250 mg t.i.d. 11. Omeprazole 40 mg b.i.d. 12. Zantac 150 mg every day. 13. Crestor 10 mg every day. 14. Januvia 25 mg every day. 15. Spiriva every day. 16. Triamterene/hydrochlorothiazide 37.5/25 every day. 17. Zantac 150 mg every day. FAMILY HISTORY: Noncontributory. SOCIAL HISTORY: She is . She does not smoke, she does not drink. REVIEW OF SYSTEMS: GENERAL: Weakness, fatigue, no fever or chills. HEENT: No amaurosis fugax, tinnitus, no hoarseness, sore throat. CARDIOVASCULAR: No chest, arm or back pain. PULMONARY: See present illness. GASTROINTESTINAL: No constipation or diarrhea. GENITOURINARY: No dysuria, nocturia, oliguria or polyuria. ENDOCRINE: No polyphagia, polydipsia or heat or cold intolerance. MUSCULOSKELETAL: Admits to arthralgias. No lupus or myopathy. NEUROLOGIC: No history of TIA or seizure. All systems are negative. PHYSICAL EXAMINATION: GENERAL: Pleasant female who appears to be tachypneic upon evaluation. VITAL SIGNS: Her blood pressure is 170/80, pulse 100, respirations 28. She is afebrile. NECK: Supple with no increased JVP or carotid bruit. Carotid had good upstroke, no thyromegaly. COR: Regular rhythm. CHEST: Scattered wheezing. ABDOMEN: Soft, nontender with normoactive bowel sounds. No bruit or organomegaly. EXTREMITIES: She has 1+ edema. She had SCDs on. She had palpable pedal pulses. SKIN: There is no evidence of ulcers, lesion or rash. NEURO: She is awake, alert, and oriented to person, place, and time. ASSESSMENT: 1. Acute respiratory failure. 2. Chronic obstructive pulmonary disease. 3. Hypertension. 4. Anemia. 5. Anxiety. 6. Depression. 7. History of coronary artery disease status post bypass. 8. Chronic renal failure. 9. Dehydration. PLAN: 1. Dr. Solano has been consulted to see the patient in consultation. 2. We will give 1 unit of blood. 3. Resume home medications. 4. We will check blood sugars a.c. and at bedtime and use sliding scale insulin per protocol. 5. Will continue breathing treatments. 6. All questions answered to her satisfaction.
[2017-06-20] MEDS: Epoetin (ESRD) 20,000 UNITS/ML SC SCH (11:35)
[2017-06-20] MEDS ORDERED: Ipratropium Bromide 2.5 ml Neb NEB SCH (12:00)
--- NOTE | 2017-06-20 16:00 | CON ---
DATE OF CONSULTATION: 06/20/2017 REASON FOR CONSULTATION: Anemia. HISTORY OF PRESENT ILLNESS: Ms. Berman is a 77-year-old female who has had multiple adm issions for shortness of breath over the last several months. She was recently discharged from this facility on 06/09/2017. She returned yesterday for shortness of breath. Chest x-ray in the emergenc y room showed bilateral pleural effusions. The patient has a history of diastolic dysfunction. Her echocardiogram done on her prior admission shows an EF of 55%-60%. She did receive diuresis on her l ast hospitalization. The patient has chronic kidney disease IV and is managed by Dr. August. She was r eferred to our clinic and had an appointment yesterday to see Dr. Franco for normocytic anemia and likely Procrit injections. We were asked to see her for her anemia per family's request. The patien t does complain of shortness of breath and fluid retention. Denies any chest pain, no melena, hemato chezia, or hematuria. The patient's hemoglobin was 7.4. Today, she was transfused 1 unit of packed RBCs. Dr. August is managing her kidney dysfunction. PAST MEDICAL HISTORY: 1. Chronic kidney disease 4. 2. Hypertension. 3. Diastolic dysfunction. 4. Anxiety. 5. Gastroesophageal reflux disease. 6. COPD. 7. Diverticulitis. 8. Gout. PAST SURGICAL HISTORY: 1. Coronary artery bypass surgery. 2. Cholecystectomy. 3. Hysterectomy. ALLERGIES: ZITHROMAX, CODEINE, QUINOLONES, SULFA and NIFEDIPINE. HOME MEDICATIONS: 1. Xanax 0.25 mg b.i.d. 2. Norvasc 10 mg b.i.d. 3. Aspirin 81 mg daily. 4. Clonidine patch q.7 days. 5. Slow Fe daily. 6. Lasix 20 mg daily. 7. Apresoline 100 mg t.i.d. 8. Albuterol p.r.n. 9. Methyldopa 250 mg t.i.d. 10. Prilosec 40 daily. 11. Crestor 10 mg daily. FAMILY HISTORY: Noncontributory. SOCIAL HISTORY: No alcohol, tobacco or illicit drug use. REVIEW OF SYSTEMS: Twelve point review of systems is negative except for noted in HPI. PHYSICAL EXAMINATION: VITAL SIGNS: Temperature is 98.0, pulse is 107, respiratory rate 22, BP is 163/74. She is 94% on ro om air. GENERAL: Chronically ill-appearing female in no acute distress. HEENT: Normocephalic, atraumatic. Pupils equal and reactive to light. NECK: Supple. CARDIOVASCULAR: Regular rate and rhythm. She has a 4/6 murmur. LUNGS: Clear anteriorly. She has pursed mouth breathing, O2 on. ABDOMEN: Soft, nontender, bowel sounds are positive. EXTREMITIES: She has 2+ swelling in her left upper extremity, 1+ in bilateral lower extremities. SKIN: No rash. HEMATOLOGIC: No petechia or purpura. NEUROLOGIC: Nonfocal. PSYCHIATRIC: The patient does answer questions appropriately. PERTINENT LABORATORY DATA AND X-RAYS: Current WBCs are 5.0, hemoglobin 7.4, hematocrit 24.4, platele t count is 241,000, 76% neutrophils, 11% lymphocytes. PT is 14.8, INR is 1.1, PTT is 42.6. Sodium i s 139, potassium 4.0, chloride 101, CO2 is 25, BUN is 59, creatinine 2.23, calcium is 9.6. BNP is 12 79, troponin is 0.078, total bilirubin is 0.5, AST is 25, ALT is 23, alkaline phosphatase is 128, ser um total protein is 7, albumin 3.8, globulin 3.2, lipase is 29. Urine is negative for bacteria. Rad iology per HPI. ASSESSMENT: 1. Normocytic anemia. 2. Chronic kidney disease 4. 3. History of diastolic dysfunction. DISCUSSION: We will check iron studies to rule out iron deficient anemia. Her normocytic anemia is likely due to her chronic kidney disease. Dr. August did give her a dose of Procrit this morning. She would be a candidate for outpatient weekly Procrit. She received a blood transfusion this morning. We will check her CBC in the a.m. and will follow up in the outpatient setting. Thank you for the consult.
[2017-06-20 16:43] LABS: Iron Binding Capacity, Total 365 mcg/dL (265-497)
[2017-06-20 16:44] LABS: Iron 27 ug/dL (50-170)
[2017-06-20] MEDS: Ipratropium Bromide 2.5 ml Neb NEB SCH (19:28)
[2017-06-20] MEDS ORDERED: Furosemide 40 MG/4 ML VIAL SLOW IVP SCH (20:00)
[2017-06-20] MEDS: Famotidine 20 MG TAB PO SCH (20:13)
[2017-06-21] MEDS: Ipratropium Bromide 2.5 ml Neb NEB SCH ×2 (01:28→07:29)
[2017-06-21 04:02] LABS: #Lymphocytes 0.4 thou/uL (1.20-3.40); #Monocytes 0.4 thou/uL (0.11-0.59); #Neutrophils 4.5 thou/uL (1.40-6.50); %Basophils 0.4 % (0.0-1.0); %Eosinophils 0.9 % (0.0-10.0); %Lymphocytes 7.7 % (21.0-51.0); %Monocytes 7.3 % (0.0-10.0); %Neutrophils 83.8 % (42.0-75.0); Hemoglobin 8.8 g/dL (12.0-16.0); Mean Corpuscular HGB CONC 32.3 g/dL (32.0-36.0); Mean Corpuscular Hemoglobin 26.9 pg (27.0-31.0); Mean Corpuscular Volume 83.3 fl (81.0-99.0); Mean Platelet Volume 7.2 fL (7.4-10.4); Platelet Count 230 thou/uL (130-400); RBC Distribution Width 14.7 % (11.5-14.5); Red Blood Cell (RBC) Count 3.26 mill/uL (4.20-5.40); White Blood Cell (WBC) Count 5.3 thou/uL (4.8-10.8)
[2017-06-21 04:26] LABS: ALT (SGPT) 19 U/L (8-55); AST (SGOT) 22 U/L (5-34); Albumin 3.5 g/dL (3.4-4.8); Alkaline Phosphatase 113 U/L (40-150); Anion Gap 17 mmol/L (10-20); BUN (Urea Nitrogen) 63 mg/dL (9.8-20.1); Bilirubin, Total 0.4 mg/dL (0.2-1.2); Calc. Creatinine Clearance 19 mL/min (70-130); Calcium 9.7 mg/dL (7.8-10.44); Carbon Dioxide 26 mmol/L (23-31); Chloride 102 mmol/L (98-107); Estimated GFR-MDRD 19; Globulin 3.1 g/dL (2.4-3.5); Glucose 115 mg/dL (83-110); Potassium 3.6 mmol/L (3.5-5.1); Protein, Total 6.6 g/dL (6.0-8.3); Sodium 141 mmol/L (136-145)
--- NOTE | 2017-06-21 08:20 | RAD ---
PORTABLE SEMI UPRIGHT FRONTAL CHEST RADIOGRAPH: Date: 06-21-17 Comparison: 06-19-17 History: Increasing shortness of breath with tachypnea. FINDINGS: Midline sternotomy wires are present. There is prominence of the cardiac silhouette. Since the prior examination, there has been development of prominent density in bilateral perihilar r egions in both lung bases extending into the mid and upper lung zones, left greater than right. Findi ngs suggest a combination of enlarging pleural effusions as well as pulmonary vascular congestion and nonspecific airspace disease. No pneumothorax is seen. IMPRESSION: Bilateral increasing density suggests interstitial and alveolar pulmonary edema. Infectious pneumonit is or aspiration cannot be excluded. Recommend follow up imaging following treatment to document reso lution. POS: [facility]
[2017-06-21] MEDS: Rosuvastatin 10 MG TAB PO SCH (08:25)
[2017-06-21] MEDS: Aspirin 81 mg Enteric Coated Tablet PO SCH (08:25)
[2017-06-21] MEDS: Spironolactone 25 MG TAB PO SCH ×3 (08:26→09:10)
[2017-06-21] MEDS: Docusate 100 MG CAP PO SCH ×2 (08:26→20:02)
[2017-06-21] MEDS: hydrALAZINE 25 MG TAB PO SCH ×3 (08:27→20:02)
[2017-06-21] MEDS: Amlodipine 10 MG TAB PO SCH (08:27)
[2017-06-21] MEDS: Ferrous Sulfate 325 MG TAB PO SCH (08:28)
[2017-06-21] MEDS: cefTRIAXone\\ROCEPHIN 1 GM, Syringe 0.4 ML in Sterile Water 9.6 ML SLOW IVP SCH (08:29)
--- NOTE | 2017-06-21 08:58 | CON ---
DATE OF CONSULTATION: 06/21/2017 She is a 77-year-old female, had 2 EKGs, was seen in the ER on 06/19/2017. Today is 06/21/2017. Pul sage was consulted. She is in [facility] with respiratory distress. Sats were in the 70s last night. S he sees Dr. Aguirre with a diagnosis of COPD. She is a former smoker, quit smoking many years ago. She has been in and out of the hospital now num erous times in the last several months. According to the daughter who was at bedside states that the patient started having marked swelling, became weak, fatigued. Orthopnea, PND. She was in the tele metry unit last night when she desaturated in the 70s, brought to the [facility]. X-ray shows CHF with tricia ateral pleural effusion. This morning her sats are 97%. According to the daughter, since being out of the hospital, she can barely walk even 20 feet without getting markedly short of breath. PAST MEDICAL HISTORY: Pertinent for COPD, coronary artery disease, CHF, diabetes, anemia, epistaxis, diverticulitis. PAST SURGICAL HISTORY: Otherwise included previous bypass surgery, cholecystectomy, hysterectomy. MEDICATIONS: Catapres 0.3, Lasix 20, hydralazine 100 three times a day, Aldomet 250 three times a da y, DuoNeb, Xanax 0.25, Norvasc 10 twice a day, Spiriva, Zantac 150, omeprazole 40. Restoril 10. ALLERGIES: Multiple, ZITHROMAX, CIPRO, CODEINE, NIFEDIPINE. SOCIAL/FAMILY HISTORY: Former smoker. No alcohol. REVIEW OF SYSTEMS: Ten point negative. PHYSICAL EXAMINATION: GENERAL: She appears to be awake, alert, responsive. VITAL SIGNS: Sats are 97%, blood pressure 160/80, pulse 80, respiration rate 18. EXTREMITIES: No edema. NECK: Unremarkable throat negative. No adenopathy. CHEST: Chest revealed bilateral crackles. CARDIAC: Normal S1, S2, no gallops. ABDOMEN: Soft. NEUROLOGIC: She is awake, alert, responsive, moves all 4 extremities. LABORATORY DATA: White count 5000, H&H 8 and 27, platelet count is normal. Creatinine is 2.4, BUN i s 63. BNP is 2763. X-ray shows bilateral pleural effusion. IMPRESSION: 1. Respiratory failure secondary to congestive heart failure. 2. Chronic obstructive pulmonary disease. 3. Chronic renal failure. 4. Diabetes. 5. Anemia. H&H is 8 and 27 today. PLAN: Continue gentle diuretics. Neb treatments, steroids, supportive care. I will follow and notify Dr. Aguirre. Please note consultation time 70 minutes, 50% in direct patient care.
[2017-06-21] MEDS ORDERED: Furosemide 20 MG TAB PO SCH (09:00)
--- NOTE | 2017-06-21 09:27 | PRG ---
DATE OF SERVICE: 06/21/2017 RENAL MEDICINE SUBJECTIVE: Ms. Berman is a 77-year-old white female who was admitted for generalized malaise. S he was found on chest x-ray to have some degree of CHF. The last echo showed a normal EF. She most likely has diastolic dysfunction. She was also started on furosemide. We are following her up for h er chronic renal failure as well as for labile hypertension. Blood pressure has been holding steady. She has been acceptable at the present time. The patient is still feeling weak and tired. A palli ative consult has been done for the patient. Please note she has multiple comorbid problems which in cludes emphysema, diastolic dysfunction/CHF, chronic renal failure, and labile hypertension. She has worsened over the last several months. She has been in and out of the hospital for a number of time s. I feel that the palliative care consult is most appropriate. I had a long discussion with the roberto mckinney. PHYSICAL EXAMINATION: VITAL SIGNS: Blood pressure 161/80, heart rate 92, respiratory rate is 28, pulse ox 97%, temperature 97.9. GENERAL: Awake, lethargic, not in overt distress. SKIN: Decreased turgor. HEENT: She has slightly pale conjunctivae, anicteric sclerae. NECK: No neck mass, no carotid bruits, no JVD. LUNGS: Decreased breath sounds. HEART: Normal sinus rhythm. No murmurs, no gallops, no rubs. ABDOMEN: Globular, soft, nontender, no masses. EXTREMITIES: No edema, no deformities. MEDICATIONS: Medications of 06/21/2017 reviewed. LABORATORY DATA: Laboratories of 06/21/2017; white count 5.3, hemoglobin 8.8. Sodium 141, potassium 3.6, chloride 102, carbon dioxide 26, BUN 63, creatinine 2.43, glucose 115, calcium 9.7, AST 22, ALT 19, albumin 3.5, BNP 2760. IMAGING DATA: Chest x-ray of 06/21/2017 shows increasing density suggestive of interstitial/alveolar pulmonary edema, although infectious pneumonitis or aspiration cannot be excluded. ASSESSMENT AND PLAN: 1. Chronic renal failure from hypertensive nephropathy, stable renal function. Creatinine 2.43 is n ear baseline. It is slightly higher than yesterday, but this could be a reflection of the current di uretic regimen. My plan is simply to observe her. Continue diuresis. Agree with spironolactone for the moment. 2. Emphysema/shortness of breath - multifactorial etiology. Also, she may have a superimposed diast olic dysfunction, currently on diuretics. 3. Labile Hypertension, acceptable blood pressure. 4. Acute kidney injury/chronic renal failure, relatively stable. Continue diuresis. No indication for any dialytic intervention. 5. Anemia. The patient has been started on weekly Epogen, status post blood transfusion. 6. Continue current care.
[2017-06-21] MEDS ORDERED: Ondansetron HCl/PF 4 MG/2 ML Vial IVP PRN (10:27)
--- NOTE | 2017-06-21 14:24 | CON ---
DATE OF CONSULTATION: 06/21/2017 PRIMARY CARE PHYSICIAN: Dr. Amando Hartman PRIMARY MANAGED CARE DIRECTOR: Dr. Pia Kang PRIMARY CATALYST OPERATOR: Dr. Dilip August ONCOLOGIST: Dr. Franco REASON FOR CONSULTATION: Heart failure and pneumonia. HISTORY OF PRESENT ILLNESS: Ms. Berman is a 77-year-old female with significant history of chronic obstructive pulmonary disease, hypertensive urgency, chronic kidney disease, diabetes typ e 2, hyperlipidemia, ex-smoker and coronary artery disease, status post CABG in 2007. The patient was discharged from the hospital on 06/02/2017. The patient was hospitalized due to the weakness, nause a. After the patient was discharged from hospital according to the patient's family, she was eating well and she could finish whole sandwich at one meal and she did not have any nausea. However, from 06/18/2017 through Monday06/19/2017 she started complaining of weakness and nausea and the f amily member called the patient's primary care doctor who recommend the patient present to the emerge ncy department for further evaluation and treatment. Per family member the patient was not coughing after a meal until Monday night and Monday. Since then she has been coughing. Sometimes she coughs after she has been drinking and eating. At first, the patient was admitted to the telemetry floor. However, patient was transferred to the IMCU due to shortness of breath and O2 sats decreasin g, O2 sat down to the 70s. At this moment the patient also satting 94% with 3 liters nasal cannula. During the initial Cardiology consultation assessment, the patient denies any chest pain, discomfort in her chest, dizziness, lightheadedness during those episodes prior to this hospitalization and als o at this moment the patient denied any cardiac complaints except weakness and shortness of breath; h owever, she has complained about trouble sleeping and feel anxious due to shortness of breath. The patient has a history of coronary artery disease status post CABG in 2007. She has chronic kidne y disease secondary to left ____ kidney. She has followed up with Dr. August. The patient's echocardi ogram was done on 05/15/2007 which shows EF of 55-60%, diastolic dysfunction and mild to moderate tri cuspid regurgitation. The chest x-ray this admission revealed bilateral increased density suggest in terstitial and alveolar pulmonary edema also infection from pneumonia or aspiration cannot be exclude d. Speech therapist evaluated this patient and recommended the patient to be on nectar thickened t. The patient's hemoglobin level was 7.9 and 7.4. The patient received 1 unit of blood transfusion yesterday 06/20/2017. Also, the patient was consulted by gift packer who recommended patient to be on Procrit. PAST MEDICAL HISTORY: Coronary artery disease, hypertensive urgency, chronic kidney disease stage 4, history of colitis, diabetes type 2, peptic ulcer disease, severe COPD, ex-smoker. PAST SURGICAL HISTORY: 1. CABG in 2007. 2. Cholecystectomy 3. Hysterectomy. FAMILY HISTORY: The patient's father due to [place]. The patient mother has a history of bypass surgery. SOCIAL HISTORY: Patient is and living with her . The patient's children live close b y and they are alive and well. The patient has a long history of smoking 1 pack a day, but she quit. She denies alcohol or illicit drug abuse. ALLERGIES: She is allergic to AZITHROMYCIN, CIPRO, CODEINE, LEVOFLOXACIN, LOSARTAN, SULFA, HYDROCHLO ROTHIAZIDE. HOME MEDICATIONS: Spiriva 18 mcg once a day, omeprazole 40 mg once a day, Crestor 10 mg once a day, DuoNeb 4 times a day as needed, Colace 100 mg twice a day, ferrous sulfate 28 mg once a day, ranitidi ne 150 mg once a day, furosemide 20 mg once a day, Norvasc 10 mg twice a day, Xanax 0.25 mg twice a d ay as needed, aspirin 81 mg once a day, Zantac 150 mg once a day, clonidine 0.3 mg patch every 7 days , hydralazine 100 mg 3 times a day, Aldomet 250 mg 3 times a day. REVIEW OF SYSTEMS: Complete review of systems was negative, unless otherwise mentioned in the HPI or below. CONSTITUTIONAL: The patient's sense of well being, ability to conduct usual activities, exercise brent erance. SKIN: Rash, itching. BREASTS: Lumps, tenderness, swelling, nipple discharge. EYES: Wears glasses, no vision change, double vision, tearing, blind spots or pain. ENT: Headache, vertigo, lightheadedness, nose bleeding, cold, obstruction, discharge, dental difficu lty, gingival bleeding, dentures, neck stiffness, pain, tenderness, mass in the thyroid or other area s. CARDIOVASCULAR: Precordial pain, substernal distress, palpitations, syncope, dyspnea on exertion, or thopnea, nocturnal dyspnea, cyanosis, varicosis, claudication. RESPIRATORY: Positive for the shortness of breath, but negative for pain, stridor, hemoptysis. GASTROINTESTINAL: Poor appetite and intermittent nausea, but negative to constipation, diarrhea, blo od in the stool. GENITOURINARY: Urgency, frequency, dysuria, nocturia, hematuria, polyuria, oliguria, unusual color o f urine. MUSCULOSKELETAL: Pain, swelling, redness or heat of muscle or joint, limitation of joint, limit of m otion. NEUROLOGIC: Seizure, conversion, paralyzed, tremor, incoordination. PSYCHIATRIC: Emotional problem, anxiety, depression, previous psychiatric care, hallucinations. PHYSICAL EXAMINATION: VITAL SIGNS: Blood pressures 160/74, temperature 97.7, pulse is 93 with sinus rhythm, respiratory ra te 23, O2 sat 94% with 3 liters. GENERAL: Well-developed without acute distress. HEAD: Normocephalic, atraumatic. EYES: Extraocular muscle movement intact. She wears glasses. ENT: Oral and nasal mucosa moist without lesion. NECK: No JVD. Neck supple and normal range of motion. LUNGS: Coarse bilaterally, but no wheezing at this moment. CARDIOVASCULAR: Regular rate and rhythm, normal S1, S2, there are no S3, S4. There is significant m urmur to the left mid mediastinal border, but negative for hives, thrill or rub noted. There are 2+ pulses in bilateral dorsalis pedis, posterior tibial, and popliteal. Carotid pulse present without b ruits, or thrill. EXTREMITIES: There is 2-3 pitting edema in the bilateral lower extremities where she does not have a CT. ABDOMEN: Nontender, no mass palpated. Bowel sounds are positive, but very hypoactive. MUSCULOSKELETAL: Able to move all extremities, but she is really very weak. SKIN: Warm and dry. No skin rash or lesion or bruise noted. NEUROLOGIC: Alert, oriented x4, but very, very lethargic. PSYCHIATRIC: Mood and affect are normal. EKG: A 12-lead EKG showing sinus rhythm without ST segment change or T-wave inversion. LABORATORY DATA: WBC 5.3, hemoglobin 8.8, hematocrit 27.2, platelet 230, Sodium 141, potassium 3.6, creatinine 2.43, BUN 63. Glucose 116 and BNP is 27,063. UA showed a high WBC and squamous basal aubrey l in her urine, but negative nitrate, blood. ASSESSMENT AND PLAN: 1. Acute on chronic diastolic dysfunction. The echocardiogram in 05/2017 show diastolic dysfunction with normal ejection fraction. The patient was complaining about shortness of breath prior to this admission. However, she reports that after she received some diuretic through the IV she could breat he better now. At this moment she is on Lasix 20 mg every other day and 10 mg every other day. She still has edema in the lower extremities and the left upper extremity. I recommend her to raise thos e extremities with a pillow to increase the circulation. She is on the Lasix, but no BROOKE inhibitor o r ARB due to the history of kidney disease. 2. Elevated troponin level. The patient's troponin is mildly elevated; however, it is already trend ing down to the normal range. We like to continue to monitor on the telemetry. 3. Hypertension, her systolic blood pressure has been at 160s at this moment, we like to continue cu rrent medication and we deferred the patient's blood pressure management to mattress maker, Dr. August. 4. Nausea. The patient's condition is stable with Zofran at this moment, which is managed by the marcy oneal's primary care doctor. 5. Coronary artery disease with history of coronary artery bypass graft in 2007. The patient's cond ition is stable at this moment, we like to continue to monitor the patient on telemetry. 4. Chronic kidney disease stage 4. She is managed by Dr. August. 5. Chronic anemia which is managed by Dr. Franco. She is on iron supplements and Procrit. 6. History of diverticulitis and colitis. At this moment, the patient's condition is stable. We wo uld like to continue to monitor. 7. Chronic obstructive pulmonary disease. The patient is followed by the slitting machine operator at this [facility]. 8. Diabetes type 2 which is managed by primary care doctor. Thank you very much for allowing Cardiology Service to participate in care of the patient. We will follow along with the patient care team and make further recommendations as appropriate.
[2017-06-21] MEDS: Famotidine 20 MG TAB PO SCH (20:02)
[2017-06-21] MEDS: hydrOXYzine 25 MG TAB PO PRN (20:03)
[2017-06-22 04:02] LABS: Band 1 % (5-11); Lymphocytes 16 % (21-51); MDiff Complete? YES; Mean Corpuscular HGB CONC 32.7 g/dL (32.0-36.0); Mean Corpuscular Hemoglobin 27.1 pg (27.0-31.0); Mean Corpuscular Volume 82.8 fl (81.0-99.0); Mean Platelet Volume 7.3 fL (7.4-10.4); Monocytes 2 % (0-10); Neutrophil 79 % (42-75); PLT Morphology Comment Appears Adequate; Platelet Count 235 thou/uL (130-400); RBC Distribution Width 14.9 % (11.5-14.5); Reactive Lymphocytes 2 % (0-10); Red Blood Cell (RBC) Count 2.96 mill/uL (4.20-5.40); White Blood Cell (WBC) Count 6.6 thou/uL (4.8-10.8)
[2017-06-22 04:04] LABS: Anion Gap 10 mmol/L (10-20); BUN (Urea Nitrogen) 66 mg/dL (9.8-20.1); Calc. Creatinine Clearance 19 mL/min (70-130); Calcium 9.6 mg/dL (7.8-10.44); Carbon Dioxide 31 mmol/L (23-31); Chloride 104 mmol/L (98-107); Estimated GFR-MDRD 19; Glucose 127 mg/dL (83-110); Potassium 3.6 mmol/L (3.5-5.1); Sodium 141 mmol/L (136-145)
[2017-06-22] MEDS: Furosemide 40 MG/4 ML VIAL SLOW IVP SCH ×2 (06:03→14:48)
--- NOTE | 2017-06-22 07:58 | ADD-CON ---
ADDENDUM DATE OF ADMISSION: 06/19/2017 DATE OF CONSULTATION: 06/21/2017 Please refer to the notes already dictated by the Nurse Practitioner. This is a very unfortunate 77- year-old female who has multiple medical problems, which includes some end-stage renal disease, she h as severe COPD. She has chronic kidney disease. She also has congestive heart failure, which is ivette stolic in nature. She was recently in the hospital, went home, was feeling a little bit better aroun d Easter time. She then presented again to the hospital here. Over the last few days, she notes inc reasing shortness of breath and lower extremity edema. Since being in the hospital, she was on the f rayna and then became hypoxic and more dyspneic and required transfer over to the step down intensive care unit. At this time, she is breathing somewhat more comfortable, but has significant edema. Her O2 saturations have remained stable since she has been here and had some diuresis. At this time, it appears that she needs further diuresis. She has edema in the lower extremities also the upper extr emities, lungs have some evidence of congestion and by chest x-ray as well as by physical examination . IMPRESSION: At this time, severe chronic obstructive pulmonary disease, for which she has been follo wed by the tomato paste maker. This is exacerbated by her diastolic heart failure. Her systolic function has been within normal limits. She does have coronary artery disease, but this has been stable. Sh e also had slight elevation of cardiac enzymes, which most likely indicates demand ischemia. EKG de los santos s not show any acute changes and cardiac enzymes are actually still trending down from her last admis meño. She is a very poor candidate to undergo any type of procedure even cardiac catheterization due to her severe chronic obstructive pulmonary disease and she is not a candidate for bypass surgery or further intervention at this time, also with her kidney function is poor as it is. She may also hav e worsening of the kidney insufficiency when develop controlling the kidney failure. Also, she has a history of anemia, which is also exacerbating her overall problems. At this time, I will continue d iuresis; however, increased her back up to IV diuretics and see whether or not we can control some of the volume overload in this patient, but it is very difficult situation. Also, we will decrease the Norvasc if she is on 10 mg b.i.d. which may be contributing some to the edema. I will add nitrates to help with blood pressure and see if she is able to tolerate this and we will see how she is tomorr ow, but at this time there is very little that we have to offer except for medical management of this patient. I believe that hospice has been discussed and not really willing to discuss hospice, but p alliative care, I feel that therapy or care team may be advisable. We will be more than happy to con tinue to follow this very unfortunate lady with you.
--- NOTE | 2017-06-22 08:37 | PRG ---
DATE OF SERVICE: 06/22/2017 SUBJECTIVE: The patient is still tachypneic upon evaluation; however, she looks better than she did the day before yesterday. Her daughter is at bedside. I spoke with the speech language pathologist. She is high risk for aspiration and if she is going to eat, she does recommend nectar thick consist ency. Palliative Care has been consulted; however, they have not seen her yet today. OBJECTIVE: GENERAL: Upon evaluation, she is awake. She is tachypneic upon evaluation, she has oxygen on. Her speech is mumbled. VITAL SIGNS: Her blood pressure is 160/80, pulse 80, respirations 24. She is afebrile. NECK: Supple with no increased JVP or carotid bruit. Carotid had good upstroke with no thyromegaly. COR: Regular rate and rhythm. CHEST: Clear to auscultation and percussion in upper lobes; however, decreased breath sounds bilater ally. ABDOMEN: Soft, obese, nontender with normoactive bowel sounds. No bruit or organomegaly. EXTREMITIES: No edema or cyanosis. Palpable pedal pulses. SKIN: There is no evidence of ulceration, lesion, or rash. NEUROLOGIC: She is awake and alert and oriented to person, place, and time. LABORATORY DATA: Hemoglobin and hematocrit is 8.0 and 24.5, platelet count is 149. White blood cell count normal, BUN 66, creatinine 2.49. ASSESSMENT: 1. Chronic kidney disease. 2. Congestive heart failure. 3. Chronic obstructive pulmonary disease. 4. Anxiety. 5. Anemia of chronic disease. 6. Multiple medical problems. 7. Dysphagia. PLAN: I spoke with the daughter at length regarding palliative care coming to visit her today and al so the need in her nutrition status. She is going to talk to the family about feeding her mom. Unfo rtunately, I thought this patient's prognosis is not very good; however, we will continue full suppor t for right now. This is Chaya Gandhi, FLOR-Pamela dictating for Dr. Amando Hartman.
[2017-06-22] MEDS ORDERED: cloNIDine 0.3mg/24 Hour PATCH TD SCH (09:00)
--- NOTE | 2017-06-22 09:01 | RAD ---
CHEST 1 VIEW: HISTORY: Pneumonia. Heart failure. COMPARISON: 06/21/17. FINDINGS: Cardiac silhouette is magnified, enlarged, and partially obscured by bilateral pleural fluid and patc hy bibasilar infiltrates. Pulmonary vasculature remains engorged with widespread reticulonodular int erstitial prominence. Mediastinum is midline with postoperative changes. monitoring and evaluation advisor leads over lie the chest. IMPRESSION: Pleural fluid, pulmonary edema, and other findings are stable. POS: TPC
[2017-06-22] MEDS: Potassium Chloride 10 MEQ TAB PO SCH (10:05)
[2017-06-22] MEDS: Ferrous Sulfate 325 MG TAB PO SCH (10:05)
[2017-06-22] MEDS: hydrALAZINE 25 MG TAB PO SCH ×3 (10:05→21:53)
[2017-06-22] MEDS: Rosuvastatin 10 MG TAB PO SCH (10:05)
[2017-06-22] MEDS: Amlodipine 5 MG TAB PO SCH (10:05)
[2017-06-22] MEDS: Aspirin 81 mg Enteric Coated Tablet PO SCH (10:06)
--- NOTE | 2017-06-22 10:06 | PRG ---
DATE OF SERVICE: 06/22/2017 SUBJECTIVE: Ms. Berman is a 77-year-old white female seen by the Renal Service for her chronic re nal failure and labile hypertension. She was initially admitted with generalized malaise. She was f ound to have CHF and emphysema. Pulmonary and Cardiology is following. She has been restarted on a bigger dose of IV Lasix at 40 mg IV q.12h. due to the shortness of breath. Renal function is relativ kashif stable except for the slightly higher creatinine noted today from baseline. Palliative consult has also been done with this patient and they have spoken with the daughter. Still with shortness of breath. PHYSICAL EXAMINATION: VITAL SIGNS: Blood pressure 165/82, heart rate 80, respiratory 22, temperature 97.7, pulse ox 100%. GENERAL: Awake, alert, supine, lethargic, not in overt distress. SKIN: Adequate turgor. HEENT: Slightly pale conjunctivae, anicteric sclerae. NECK: No neck mass, no carotid bruits, no JVD. CHEST: No deformities. LUNGS: Decreased breath sounds. Occasional crackles. HEART: Normal sinus rhythm. No murmur, no gallops, no rubs. ABDOMEN: Globular, soft, nontender, no masses. EXTREMITIES: No edema, no deformities. MEDICATIONS: 06/22/2017 - Reviewed. LABORATORY: 06/22/2017 - White count 6.6, hemoglobin 8, hematocrit 24.5. Sodium 141, potassium 3.6, chloride 104, carbon dioxide 31, BUN 66, creatinine 2.49, glucose 127, calcium 9.6. BNP is 2122. ASSESSMENT AND PLAN: 1. Shortness of breath - congestive heart failure/chronic obstructive pulmonary disease exacerbation . Currently, on IV Lasix 40 mg IV q.12h. Continue neb treatments. Continue supportive care. 2. Chronic renal failure - slightly higher creatinine. This is a reflection of the current diuretic regimen. We will continue current diuresis due to the congestive heart failure. No indication for any dialytic intervention. 3. Anemia, on weekly Epogen - p.r.n. transfusion. 4. Hypertension, stable. Continue current blood pressure meds. I have adjusted downwards spironola ctone from 50 mg to 25 mg tab once a day due to the worsening renal dysfunction. I agree with current management.
[2017-06-22] MEDS: Docusate 100 MG CAP PO SCH ×2 (10:07→21:53)
[2017-06-22] MEDS: cefTRIAXone\\ROCEPHIN 1 GM, Syringe 0.4 ML in Sterile Water 9.6 ML SLOW IVP SCH (10:24)
[2017-06-22] MEDS: hydrOXYzine 25 MG TAB PO PRN (10:39)
[2017-06-22] MEDS ORDERED: Oxymetazoline HCl 0.05% ( 15 ML ) NASAL PRN (11:23)
[2017-06-22] MEDS: Spironolactone 25 MG TAB PO SCH (11:42)
--- NOTE | 2017-06-22 12:09 | PDOC.CTH ---
<Danii De Paz - Last Filed: 06/22/17 12:00> Cardiology Progress Note - Subjective The pt seen and examined. No overnight events. No cardiac complaints. She would like to be Full code. She has an episode of nosal bleeding this AM from both nares. She has not taken any PO med this AM because she was very weak and severe SOB with minimal movement, per family. - Objective Vital Signs Temp Pulse Resp BP BP Pulse Ox 06/22/17 11:00 89 22 H 160/73 H 98 06/22/17 10:07 162/75 H 06/22/17 10:05 93 167/77 H 06/22/17 10:01 93 22 H 97 06/22/17 08:00 97.7 F 80 22 H 80 L 06/22/17 07:00 97.7 F 80 22 H 165/82 H 100 06/22/17 06:54 84 20 97 06/22/17 05:08 94 L 06/22/17 03:59 98.9 F 95 24 H 162/75 H 92 L Weight 138 lb 6.4 oz 06/21/17 06/22/17 06/23/17 06:59 06:59 06:59 Intake Total 1653 1140 Balance 1653 1140 - Physical Examination General/Neuro: alert & oriented x3 Neck: no JVD present Lungs: other: (very coarse and diminished at bases) Heart: RRR Abdomen: soft Extremities: other: (Mod generalized edema) - Telemetry Telemetry Rhythm: SR 80s - Labs Result Diagrams: 06/22/17 03:29 06/22/17 03:28 Troponin/CKMB Troponin I 0.028 ng/mL (< 0.028) 06/20/17 01:01 - Assessment/Plan 1. Acute on Chronic diastolic HF - Stable with Lasix 40mg IV BID and Spironodactone 25mg daily; Not on BBlocker due to HX of severe COPD. Not on BROOKE due to Hx of CKD. 2. Severe COPD - unable to eat or drink due to JANSEN. managed by management rep 3. HTN - stable 4. CKD - slightly elevated today. managed by top case assembler 5. Anemia - slightly decreased today; on Epogen qwk. 6. CAD with hx of CABG in 2007- stable and cont. to monitor on tele; She is not good candidate for LHC due to hx of severe COPD, Anemia, and CKD. 7. DM type 2 - stable; managed by PCP MAR Review of Systems - Review of Systems Constitutional: reports: weakness Respiratory: reports: shortness of breath, SOB with excertion Cardiac (ROS): reports: no symptoms reported ABD/GI: reports: see HPI <Will Kang - Last Filed: 06/22/17 17:10> Cardiology Progress Note - Objective Vital Signs Temp Pulse Pulse Pulse Resp BP BP 06/22/17 16:32 97.2 F L 92 19 06/22/17 14:50 99 97 169/72 H 06/22/17 14:49 162/75 H 06/22/17 14:48 89 154/74 H 06/22/17 14:25 89 22 H 06/22/17 14:20 91 06/22/17 11:00 89 22 H 06/22/17 10:07 162/75 H 06/22/17 10:05 93 167/77 H 06/22/17 10:01 93 22 H 06/22/17 08:00 97.7 F 80 22 H 06/22/17 07:00 97.7 F 80 22 H 06/22/17 06:54 84 20 BP BP Pulse Ox Pulse Ox Pulse Ox 06/22/17 16:32 163/76 H 96 06/22/17 14:50 162/70 H 93 L 94 L 06/22/17 14:49 06/22/17 14:48 06/22/17 14:25 95 06/22/17 14:20 06/22/17 11:00 160/73 H 98 06/22/17 10:07 06/22/17 10:05 06/22/17 10:01 97 06/22/17 08:00 80 L 06/22/17 07:00 165/82 H 100 06/22/17 06:54 97 Weight 138 lb 6.4 oz 06/21/17 06/22/17 06/23/17 06:59 06:59 06:59 Intake Total 1653 1140 Balance 1653 1140 - Labs Result Diagrams: 06/22/17 03:29 06/22/17 03:28 Troponin/CKMB Troponin I 0.028 ng/mL (< 0.028) 06/20/17 01:01 - Assessment/Plan Pt. seen and eval. by me. i agree with the A/P by the MAINFRAME PROGRAMMER. She is still SOB. She did not tolerate the CPAP mask. She has diuresed some in diapers. BP still elevarted but reasonable for her. Multiple medical problems. Continue agressive care.
--- NOTE | 2017-06-22 16:11 | PRG ---
DATE OF SERVICE: 06/22/2017 SUBJECTIVE: Ruby gets better, but not a lot. Her chest radiograph today, reviewed by me, is unchang ed. She still has crackles at her lung bases. She is not wheezing. OBJECTIVE: HEART: Regular rhythm. She has grade 3/6 systolic murmur. ABDOMEN: Soft and nontender. EXTREMITIES: Without clubbing, cyanosis, or edema. LABORATORY DATA: White count 6.6, hemoglobin 8.0, platelets 235. Sodium 141, potassium 3.6, chlorid e 104, bicarbonate 31, BUN 66, creatinine 2.4. Yesterday, her creatinine was 2.43 and today it is 2. 49. Intake and output are actually positive 1140, because there is no output recorded. We actually cannot continue to manage her if we do not have intake and output, so she has to have a F oley placed. She also has to have accurate I and Os. IMPRESSION: 1. Congestive heart failure secondary to mitral regurgitation combined with diastolic dysfunction. I do not feel chronic obstructive pulmonary disease is a big part of this presentation. 2. Muscle weakness, weight loss, and deconditioning. Place her on BiPAP today, so she will get some rest with this. 3. Swallowing dysfunction secondary to her weakness. The options that are ahead of us are very poor . If her swallowing is not better tomorrow, she may need a Dobbhoff tube. 4. Chronic kidney disease, which will likely be aggravated by diuresis. PLAN: Continue supportive care.
[2017-06-22] MEDS: Famotidine 20 MG TAB PO SCH (21:53)
[2017-06-23] MEDS: hydrOXYzine 25 MG TAB PO PRN ×2 (03:02→10:05)
[2017-06-23 04:18] LABS: #Lymphocytes 0.7 thou/uL (1.20-3.40); #Monocytes 0.7 thou/uL (0.11-0.59); #Neutrophils 5.4 thou/uL (1.40-6.50); %Basophils 0.4 % (0.0-1.0); %Eosinophils 0.7 % (0.0-10.0); %Lymphocytes 10.4 % (21.0-51.0); %Neutrophils 78.4 % (42.0-75.0); Hemoglobin 8.5 g/dL (12.0-16.0); Mean Corpuscular HGB CONC 31.8 g/dL (32.0-36.0); Mean Corpuscular Hemoglobin 26.5 pg (27.0-31.0); Mean Corpuscular Volume 83.3 fl (81.0-99.0); Platelet Count 225 thou/uL (130-400); RBC Distribution Width 15.2 % (11.5-14.5); White Blood Cell (WBC) Count 6.9 thou/uL (4.8-10.8)
[2017-06-23 04:26] LABS: Anion Gap 13 mmol/L (10-20); BUN (Urea Nitrogen) 67 mg/dL (9.8-20.1); Calc. Creatinine Clearance 20 mL/min (70-130); Calcium 9.6 mg/dL (7.8-10.44); Carbon Dioxide 30 mmol/L (23-31); Chloride 105 mmol/L (98-107); Estimated GFR-MDRD 20; Glucose 112 mg/dL (83-110); Potassium 3.2 mmol/L (3.5-5.1); Sodium 145 mmol/L (136-145)
[2017-06-23] MEDS: Furosemide 40 MG/4 ML VIAL SLOW IVP SCH (07:17)
--- NOTE | 2017-06-23 08:24 | PDOC.CTH ---
<Danii De Paz - Last Filed: 06/23/17 08:23> Cardiology Progress Note - Subjective The pt seen and examined. No overnight events. No cardiac complaints. Very lethergic. - Objective Vital Signs Temp Pulse Resp BP BP Pulse Ox 06/23/17 07:22 98.6 F 110 H 25 H 180/89 H 91 L 06/23/17 07:02 108 H 24 H 91 L 06/23/17 02:40 110 H 24 H 92 L 06/23/17 00:00 99 20 167/85 H 95 06/22/17 21:54 161/78 H 06/22/17 21:53 92 161/78 H Weight 139 lb 8 oz 06/22/17 06/23/17 06/24/17 06:59 06:59 06:59 Intake Total 1140 30 Balance 1140 30 - Physical Examination Neck: carotid US brisk Lungs: other: (coarses and diminished at bases) Heart: RRR, other: Abdomen: soft Extremities: other: (genaralized edema) - Telemetry Telemetry Rhythm: SR 90-100s - Labs Result Diagrams: 06/23/17 04:00 06/23/17 04:00 Troponin/CKMB Troponin I 0.028 ng/mL (< 0.028) 06/20/17 01:01 - Assessment/Plan 1. Acute on Chronic diastolic HF - Stable with Lasix 40mg IV BID and Spironodactone 25mg daily; Not on BBlocker due to HX of severe COPD. Not on BROOKE due to Hx of CKD. 2. Severe COPD - She could not tolerate CPAP mask yesterday. managed by corporate safety manager 3. HTN - BP still elevarted but reasonable for her 4. CKD - slightly improving today. managed by scanner supervisor 5. Anemia - slightly improving today; on Epogen qwk. 6. CAD with hx of CABG in 2007- stable and cont. to monitor on tele; She is not good candidate for C due to hx of severe COPD, Anemia, and CKD. 7. DM type 2 - stable; managed by PCP MAR * Possible PEG tube? Review of Systems - Review of Systems Constitutional: reports: see HPI EENTM: reports: see HPI Respiratory: reports: see HPI Cardiac (ROS): reports: see HPI ABD/GI: reports: see HPI <Will Kang - Last Filed: 06/23/17 14:02> Cardiology Progress Note - Objective Vital Signs Temp Pulse Resp BP BP Pulse Ox 06/23/17 13:00 98.3 F 06/23/17 10:59 98.4 F 109 H 22 H 181/90 H 92 L 06/23/17 10:53 107 H 40 H 96 06/23/17 09:31 110 H 163/76 H 06/23/17 09:30 161/78 H 06/23/17 09:29 110 H 163/76 H 06/23/17 08:00 98 F 110 H 26 H 92 L 06/23/17 07:22 98.6 F 110 H 25 H 180/89 H 91 L 06/23/17 07:02 108 H 24 H 91 L 06/23/17 02:40 110 H 24 H 92 L Weight 139 lb 8 oz 06/22/17 06/23/17 06/24/17 06:59 06:59 06:59 Intake Total 1140 30 0 Output Total 320 Balance 1140 30 -320 - Labs Result Diagrams: 06/23/17 04:00 06/23/17 04:00 Troponin/CKMB Troponin I 0.028 ng/mL (< 0.028) 06/20/17 01:01 - Assessment/Plan Pt. seen and eval. by me. I agree with the A/P by the FLAME CUTTING MACHINE OPERATOR HELPER. I had a discussion with the family and have advised against a feeding tube.We will try to control the BP,continue diuresis and see how she does over the weekend. There is little more that I have to offer.
[2017-06-23] MEDS: cefTRIAXone\\ROCEPHIN 1 GM, Syringe 0.4 ML in Sterile Water 9.6 ML SLOW IVP SCH (09:28)
[2017-06-23] MEDS: Ferrous Sulfate 325 MG TAB PO SCH (09:29)
[2017-06-23] MEDS: hydrALAZINE 25 MG TAB PO SCH ×3 (09:29→20:09)
[2017-06-23] MEDS: Aspirin 81 mg Enteric Coated Tablet PO SCH (09:30)
[2017-06-23] MEDS: Amlodipine 5 MG TAB PO SCH (09:31)
[2017-06-23] MEDS: Potassium Chloride 10 MEQ TAB PO SCH (09:31)
[2017-06-23] MEDS: Spironolactone 25 MG TAB PO SCH (09:31)
[2017-06-23] MEDS: Rosuvastatin 10 MG TAB PO SCH (09:31)
[2017-06-23] MEDS: Docusate 100 MG CAP PO SCH ×2 (09:32→20:09)
[2017-06-23] MEDS ORDERED: Furosemide 100 MG/10 ML VIAL SLOW IVP SCH (12:30)
[2017-06-23] MEDS ORDERED: niCARdipine 40MG In NaCl 40 MG/200 ML BAG IVPB SCH (12:30)
--- NOTE | 2017-06-23 12:40 | PRG ---
DATE OF SERVICE: 06/23/2017 Cullen did not tolerate BiPAP yesterday. She felt like she was suffocating. PHYSICAL EXAMINATION: VITAL SIGNS: She is afebrile, heart rate 109, blood pressure 181/90 respiratory 20, oximetry is 92 o n a cannula. LUNGS: Remarkable for crackles bilaterally. HEART: Regular rhythm. There is a grade 3/6 systolic murmur. ABDOMEN: Soft and nontender. EXTREMITIES: With asymmetry. She still has some trace edema. LABORATORY DATA: White count 6.9, hemoglobin 8.5, platelets 225. Sodium 145, creatinine 3.2, chloride 105, bicarb 30, BUN 67, creatinine 2.36, glucose 112. IMPRESSION: 1. Diastolic dysfunction. 2. Chronic kidney disease. 3. Mitral regurgitation. 4. As well as poorly controlled hypertension, all contributing to ongoing dyspnea on exertion and dy spnea at rest. A consult was placed for PEG placement. She cannot have a PEG done unless she is intubated. I have explained to the family that intubation will likely lead to prolonged stay in the ICU with several da ys of mechanical ventilation which will probably be a terminal event for her from a weakness standpoi nt. I have explained this to Ms. Berman and both her daughters. Ms. Berman never wants to be placed on mechanical ventilation and wants to be a do not resuscitate patient, but also wants medical management, to the best of our ability to see if we can get her through this. I have explained to bennie jay that we may not be able to get her through this. The nurses on the Intermediate Care Unit cannot deliver Cardene. She has marginal swallowing, so will place her on a Cardene drip for blood pressur e control. Place a Wisdom in her so we can quantitate her intake and output and try to diurese more f luid off of her. We will proceed with comfort feeds with thickened buttermilk and thickened Suplena. Hopefully, we ca n get 3 cans of nutrition in her a day to avoid a Dobbhoff placement. I would place a Dobbhoff long before I would place a PEG. Family is in agreement with this plan. She will be moved out of the [facility] Unit. I will enter the do not resuscitate order in the computer.
[2017-06-23] MEDS: niCARdipine HCl 25 MG in Sodium Chloride 0.9% 250 ML 240 ML IVPB SCH ×2 (13:45→21:04)
--- NOTE | 2017-06-23 17:43 | PRG ---
DATE OF SERVICE: 06/23/2017 SUBJECTIVE: Ms. Berman is a 77-year-old white female with known multiple medical problems and edilberto ho followed by the Renal Service for her chronic renal failure and labile hypertension. She also has history of CHF with an ejection fraction that was said to be preserved. She most likely has diastol ic dysfunction. She has also underlying history of emphysema/COPD. The patient wanted to have a PEG tube placed; however, this will entail her from being intubated as per comments by Pulmonary Medicadalgisa garces. The plan is to hold off PEG tube placement with this patient. The issue is whether she may be as pirating. The patient declines any intubation at the present time. Renal function over the last several days h as remained stable. We are attempting to control blood pressure as best as we can. Please note, she is sensitive to several antihypertensive medications. I have decided to decrease spironolactone yes terday from 50 to 20 mg tab once a day due to the worsening renal dysfunction. This morning, creatin ine established at the value of 2.36. She voices no other complaints. She still has underlying shor tness of breath. She continues to be diuresed at the same time. PHYSICAL EXAMINATION: VITAL SIGNS: Blood pressure is currently at 139/72, heart rate 105, respiratory rate 37, pulse oxime try 92% on Venturi mask. GENERAL: In mild respiratory distress. SKIN: Adequate turgor. HEENT: She has pinkish conjunctivae, anicteric sclerae. NECK: No neck mass. No carotid bruits. No JVD. LUNGS: Harsh breath sounds. HEART: Tachycardic. No murmur. No gallops. No rubs. ABDOMEN: Globular, soft, nontender. EXTREMITIES: Positive for edema. MEDICATIONS: Medications of 06/23/2017 was reviewed. LABORATORY DATA: Laboratories of 06/23/2017: White count 6.9, hemoglobin 8.5. Sodium 145, potassiu m 3.2, chloride 105, carbon dioxide 30, BUN 67, creatinine 2.36, calcium is 9.6. ASSESSMENT AND PLAN: 1. Chronic renal failure, stable renal function. Creatinine is noted to be near baseline. No indic ation for any dialytic intervention 2. Shortness of breath, multifactorial in etiology. Currently, on Lasix 80 mg IV daily. She also h as been started on steroids for her underlying chronic obstructive pulmonary disease. 3. ? of aspiration pneumonia. The patient could not be a candidate for PEG tube placement due to th e fact this will necessitate in her being intubated and the patient declines to be intubated. Overal l prognosis remains guarded with this patient. Chest x-ray done yesterday 06/22/2017 showed pulmonar y edema with pleural fluid. Continue supportive care.
--- NOTE | 2017-06-23 17:45 | CON ---
DATE OF CONSULTATION: 06/23/2017 REQUESTING PHYSICIAN: Dr. Hartman. REASON FOR CONSULTATION: Consider PEG tube placement. HISTORY OF PRESENT ILLNESS: Ruby Berman is a 77-year-old woman, who was admitted to the hospital 4 days ago with worsening orthopnea, shortness of breath, and abdominal swelling. She has a history of COPD, but also severe diastolic dysfunction and a history of coronary artery disease as well as ch ronic kidney disease. Unfortunately, she has developed significant cardiorespiratory compromise and fluid overload. Today, she has been made a DNR status. Speech evaluation yesterday demonstrated hig h risk of aspiration with multiple consistencies and she is now getting nectar-thick liquids. Concer n has been raised for nutrition delivery going forward. I note in Dr. Aguirre's assessment from hiram franz today, the patient would be quite high risk for placement of a PEG tube. She would have to be intu bated for the procedure and it is not very likely that she would be able to come off the ventilator i f that were the case. The patient herself expresses wishes never to go on a ventilator, for this savana son, she also does not want to consider PEG placement at this time. PAST MEDICAL HISTORY: Chronic renal insufficiency, hypertension, anxiety, depression, gastroesophage al reflux disease, diverticulitis, gout, chronic obstructive pulmonary disease, coronary artery disea se with bypass in the past. PAST SURGICAL HISTORY: Cholecystectomy, hysterectomy, diastolic dysfunction. ALLERGIES: AZITHROMYCIN, CIPRO, CODEINE, LEVOFLOXACIN, NIFEDIPINE, SULFA. FAMILY HISTORY: Noncontributory. SOCIAL HISTORY: She is . No smoking or alcohol use. MEDICATIONS: DuoNeb, Norvasc, aspirin 81 mg daily, IV ceftriaxone, clonidine, Procrit, Pepcid, iron 325 mg daily, IV Lasix, hydralazine, hydroxyzine, isosorbide mononitrate, methyldopa, Solu-Medrol 40 mg IV daily, nicardipine drip, Protonix 40 mg daily, Seroquel, Crestor, spironolactone 25 mg daily. PHYSICAL EXAMINATION: VITAL SIGNS: Pulse 102, blood pressure 156/78, 84% oxygen saturation on facemask oxygen, temperature is 98.3. GENERAL: Quite frail 77-year-old woman, lying in bed, and in [id number] respiratory distress. She denies any pain. SKIN: No jaundice, no rash visible or palpable. EYES: No scleral icterus. Extraocular movements intact. ENT: Mucous membranes moist, no oral lesions. LYMPH: No submandibular, supraclavicular lymphadenopathy. THYROID: Nontender to palpation. HEART: Regular tachycardia. LUNGS: She is slightly tachypneic, breathing is shallow. ABDOMEN: Flat, bowel sounds present, soft and nontender to palpation. No surgical scars to the left upper quadrant. EXTREMITIES: Trace pretibial edema bilaterally. NEUROLOGICAL: Cranial nerves II-XII intact bilaterally. LABORATORY STUDIES: WBC 6.9, hemoglobin 8.5, platelets 225. INR 1.1. Sodium 145, potassium 3.2, BU N 67, creatinine 2.36, glucose 119, calcium 9.6. IMAGING STUDIES: Chest x-ray yesterday demonstrated cardiomegaly, bilateral pleural fluid, and patch y bibasilar infiltrates. ASSESSMENT AND PLAN: 1. Oropharyngeal dysphagia. 2. Congestive heart failure. 3. Respiratory failure. 4. Chronic kidney disease. I had a long discussion with the patient and her family regarding considerations of possible PEG tube placement. I do agree with Dr. Aguirre's assessment that the procedure itself would be quite high ris k that she would need to be mechanically intubated for the procedure. If it is not felt that she has a great chance of coming off of the ventilator following this and if her wishes are indeed never to be on a ventilator, then we really cannot proceed with PEG tube placement. The patient and family ex pressed understanding of this and also agreement. The only options left would be to feed by mouth fo r comfort, versus placement of a longer term Dobbhoff tube for feeds. I would leave that to the disc retion of the primary service. I do remain available if the clinical situation changes and a PEG tub e is desired. Please feel free to give us a call back anytime. For now, GI will sign off. Thank you for the consultation.
[2017-06-23] MEDS: Famotidine 20 MG TAB PO SCH (20:09)
[2017-06-23] MEDS: ALPRAZolam 0.25 MG TAB PO PRN (23:52)
[2017-06-24] MEDS: hydrOXYzine 25 MG TAB PO PRN (04:53)
[2017-06-24] MEDS: niCARdipine HCl 25 MG in Sodium Chloride 0.9% 250 ML 240 ML IVPB SCH ×2 (04:55→13:38)
[2017-06-24 05:34] LABS: #Lymphocytes 0.6 thou/uL (1.20-3.40); #Monocytes 0.8 thou/uL (0.11-0.59); #Neutrophils 6.4 thou/uL (1.40-6.50); %Eosinophils 0.3 % (0.0-10.0); %Lymphocytes 7.1 % (21.0-51.0); %Monocytes 10.7 % (0.0-10.0); %Neutrophils 81.9 % (42.0-75.0); Hemoglobin 8.6 g/dL (12.0-16.0); Mean Corpuscular HGB CONC 31.5 g/dL (32.0-36.0); Mean Corpuscular Hemoglobin 26.5 pg (27.0-31.0); Mean Corpuscular Volume 84.1 fl (81.0-99.0); Mean Platelet Volume 7.4 fL (7.4-10.4); Platelet Count 263 thou/uL (130-400); RBC Distribution Width 15.4 % (11.5-14.5); Red Blood Cell (RBC) Count 3.23 mill/uL (4.20-5.40); White Blood Cell (WBC) Count 7.8 thou/uL (4.8-10.8)
[2017-06-24 05:47] LABS: Anion Gap 15 mmol/L (10-20); BUN (Urea Nitrogen) 69 mg/dL (9.8-20.1); Calc. Creatinine Clearance 22 mL/min (70-130); Calcium 9.6 mg/dL (7.8-10.44); Carbon Dioxide 31 mmol/L (23-31); Chloride 106 mmol/L (98-107); Estimated GFR-MDRD 22; Glucose 106 mg/dL (83-110); Sodium 149 mmol/L (136-145)
[2017-06-24 05:49] LABS: Potassium 2.8 mmol/L (3.5-5.1)
[2017-06-24] MEDS ORDERED: Potassium Chloride 20 MEQ TAB PO SCH ×2 (06:45→15:00)
--- NOTE | 2017-06-24 07:57 | RAD ---
PORTABLE UPRIGHT FRONTAL CHEST RADIOGRAPH: Date: 06/24/17 COMPARISON: 06/21/17. HISTORY: Pneumonia. FINDINGS: There is no pneumothorax. Midline sternotomy wires are present. There is pulmonary vascular congestio n, stable. There is interstitial and alveolar opacity in the bilateral perihilar regions, not signifi cantly changed. There is dense opacity in both lung bases suggesting a combination of nonspecific tricia ateral lower lobe consolidation/collapse and prominent bilateral pleural effusions. IMPRESSION: No significant interval change. Findings may be on the basis of edema, infectious pneumonitis, and/or aspiration. POS: [facility]
[2017-06-24] MEDS: Furosemide 100 MG/10 ML VIAL SLOW IVP SCH (08:25)
[2017-06-24] MEDS: Rosuvastatin 10 MG TAB PO SCH (08:26)
[2017-06-24] MEDS: hydrALAZINE 25 MG TAB PO SCH ×3 (08:27→20:09)
[2017-06-24] MEDS: Spironolactone 25 MG TAB PO SCH (08:27)
[2017-06-24] MEDS: Potassium Chloride 10 MEQ TAB PO SCH (08:27)
[2017-06-24] MEDS: Docusate 100 MG CAP PO SCH ×2 (08:27→20:10)
[2017-06-24] MEDS: Ferrous Sulfate 325 MG TAB PO SCH (08:28)
[2017-06-24] MEDS: Aspirin 81 mg Enteric Coated Tablet PO SCH (08:29)
[2017-06-24] MEDS: Amlodipine 5 MG TAB PO SCH (08:41)
[2017-06-24] MEDS: cefTRIAXone\\ROCEPHIN 1 GM, Syringe 0.4 ML in Sterile Water 9.6 ML SLOW IVP SCH (08:45)
--- NOTE | 2017-06-24 09:23 | PRG ---
DATE OF SERVICE: 06/24/2017 SUBJECTIVE: The patient is up in a chair today. She is actually doing a little bit better. OBJECTIVE: VITAL SIGNS: Temperature 98.6, pulse 106, blood pressure 145/72. Currently on nicardipine drip at 3 mg per hour. A 24-hour intake 120. Urine output to be about 1505. HEENT: Unremarkable. NECK: No JVD. LUNGS: Fairly clear without wheezing or rhonchi. CARDIAC: S1, S2 regular. ABDOMEN: Soft. EXTREMITIES: Trace edema throughout. Chest x-ray demonstrates bilateral pulmonary edema and pleural effusions. ASSESSMENT: 1. Generalized failure to thrive. 2. Hypertension with diastolic dysfunction. 3. Chronic kidney disease. PLAN: 1. She is currently on a Cardene drip for blood pressure control until she is perhaps able to swallo w better. She is on multiple oral blood pressure medications that hopefully will start having a bett er effect and allow us to wean the nicardipine. 2. The patient's cardiopulmonary status is truly tenuous. She was made DNR yesterday and I think it would be best to proceed along the lines of palliative care. Potassium will be replaced.
[2017-06-24] MEDS: Insulin Regular 300 UNITS/3 ML VIAL SC PRN ×2 (11:06→16:17)
--- NOTE | 2017-06-24 11:19 | PRG ---
DATE OF SERVICE: 06/24/2017 SUBJECTIVE: Ms. Berman is a 77-year-old white female followed up for her labile hypertension and chronic renal failure. She has recently transferred to ICU for start of nifedipine drip. Blood pressure is much improved. Currently, continue current oral antihypertensive as well as the clonidine patch with this patient. She has had history of renal vascular disease in the past. Her shortness of breath is relatively unchanged. She is still needing O2 supplementation. She still has decreased p.o. intake. I note that she is mildly hypernatremic. I did encourage the patient to increase her free water intake. No other complaints today. PHYSICAL EXAMINATION: VITAL SIGNS: Blood pressure 132/65 with heart rate of 93, ranging to 117. Respiratory rate 24, pulse ox 94%. GENERAL: Awake, sitting comfortable, not in overt distress. SKIN: Adequate turgor. HEENT: Slightly pale conjunctivae, anicteric sclerae. NECK: No neck mass, no carotid bruits, no JVD. CHEST: No deformities. LUNGS: Harsh breath sounds. No wheezing. HEART: Tachycardic. No murmur, no gallops, no rubs. ABDOMEN: Globular, soft, nontender, no masses. EXTREMITIES: Trace edema. MEDICATIONS: 06/24/2017 was reviewed. LABORATORY DATA: On 06/24/2017, showed the following: White count 7.8, hemoglobin 8.6. Sodium 149, potassium 2.8, chloride 106, carbon dioxide 31, BUN 69, creatinine 2.18, glucose 106, and calcium 9.6. Chest x-ray of 06/24/2017 showed no acute changes. Finding of pulmonary edema noted. ASSESSMENT AND PLAN: 1. Chronic renal failure, stable renal function, tolerating current diuretic regimen. Currently on Lasix 80 mg IV q. day. 2. Hypernatremia - Encourage free water intake. 3. Hypokalemia - p.r.n. correction. 4. Anemia, on weekly Epogen. 5. Labile hypertension. Continue current blood pressure medications. The patient is very sensitive to antihypertensive medications. For this reason, we will leave the current antihypertensive regimen as his. Please note she will be tapered on the IV nicardipine. 6. Congestive heart failure/diastolic dysfunction. Continue current diuretic regimen. There is no indication for any dialytic intervention with this patient. MTDD
--- NOTE | 2017-06-24 11:40 | PRG ---
DATE OF SERVICE: 06/24/2017 SUBJECTIVE: She is awake. She is alert. She is in the chair. She is on a Venturi mask. She is st ill tachypneic upon evaluation. She is on a nicardipine drip as her blood pressure became low. PHYSICAL EXAMINATION: VITAL SIGNS: Her blood pressure now is 140/80, pulse 110, she is at 26 respirations, she is afebrile . NECK: Supple with no increased JVP or carotid bruit. Carotid had good upstroke with no thyromegaly. COR: Tachy rhythm. CHEST: Decreased breath sounds bilaterally. ABDOMEN: Soft and nontender with normoactive bowel sounds. No bruit or organomegaly. EXTREMITIES: No edema or cyanosis. She has palpable pedal pulses. SKIN: There is no evidence of ulcers, lesion, or rash. NEUROLOGIC: She is awake, alert, and oriented to person, place, and time. LABORATORY DATA: Her potassium is 2.8, BUN is 69, creatinine 2.18. Her H&H is 8.6 and 27.2. Her wh ite blood cell is 7.8. ASSESSMENT: 1. Congestive heart failure. 2. Chronic obstructive pulmonary disease. 3. Epistaxis, resolved. 4. Hypotension. 5. Diabetes. 6. Dysphagia, high risk for aspiration. 7. Anxiety. 8. Multiple medical problems. 9. Chronic renal insufficiency. PLAN: 1. We will continue the nicardipine for now. Gastroenterology has already been consulted for a PEG tube. GI did feel like the patient was at high risk for not coming off the ventilator, so therefore, he did sign off the case and did not feel like PEG was a good idea. 2. We will replace her potassium. 3. We will continue feeding at high risk knowing that she is high risk for aspiration, the family is aware that and the patient is aware that. We will follow up with lab in the morning. This is JOSHUA Barkley dictating for Dr. Amando Hartman.
--- NOTE | 2017-06-24 17:31 | PRG ---
DATE OF SERVICE: 06/24/2017 SUBJECTIVE: Ms. Berman is awake and alert, comfortable. PHYSICAL EXAMINATION: VITAL SIGNS: Blood pressure 133/76, pulse 100-110. LUNGS: Shallow breath sounds, but no rales. CARDIAC: It is regular with premature beats. ASSESSMENT: 1. Diastolic heart failure. 2. Anemia, improving. 3. Hypokalemia, being treated. 4. Stage 4 renal failure. PLAN: Continue supportive care. No changes.
[2017-06-24] MEDS: Famotidine 20 MG TAB PO SCH (20:10)
[2017-06-24] MEDS ORDERED: Fentanyl 250 MCG/5 ML VIAL ONE (21:54)
[2017-06-24] MEDS ORDERED: Sodium Bicarb 50 MEQ/50 ML Abboject 8.4% SYRINGE ONE ×2 (22:11→23:10)
[2017-06-24] MEDS ORDERED: Norepinephrine 8 MG/0.9% NS 250 ML ONE (22:14)
[2017-06-24] MEDS ORDERED: Phenylephrine HCL 10 MG/ML VIAL ONE (22:14)
[2017-06-24] MEDS ORDERED: Midazolam HCl 5 mg/5 ml Vial ONE (22:24)
[2017-06-24] MEDS ORDERED: Calcium Chloride 1 GM/10 ML Abboject SYRINGE ONE (23:10)
[2017-06-25] MEDS: ALPRAZolam 0.25 MG TAB PO PRN ×5 (01:03→21:13)
[2017-06-25] MEDS: cloNIDine 0.1 MG TAB PO PRN (06:56)
[2017-06-25 07:19] LABS: ALT (SGPT) 14 U/L (8-55); AST (SGOT) 20 U/L (5-34); Albumin 3.4 g/dL (3.4-4.8); Alkaline Phosphatase 83 U/L (40-150); Anion Gap 13 mmol/L (10-20); BUN (Urea Nitrogen) 68 mg/dL (9.8-20.1); Bilirubin, Total 0.4 mg/dL (0.2-1.2); Calc. Creatinine Clearance 22 mL/min (70-130); Calcium 9.2 mg/dL (7.8-10.44); Carbon Dioxide 33 mmol/L (23-31); Chloride 106 mmol/L (98-107); Estimated GFR-MDRD 22; Globulin 2.8 g/dL (2.4-3.5); Glucose 110 mg/dL (83-110); Potassium 3.4 mmol/L (3.5-5.1); Protein, Total 6.2 g/dL (6.0-8.3); Sodium 149 mmol/L (136-145)
[2017-06-25 07:52] LABS: #Lymphocytes 0.8 thou/uL (1.20-3.40); #Monocytes 0.5 thou/uL (0.11-0.59); %Basophils 0.5 % (0.0-1.0); %Eosinophils 0.8 % (0.0-10.0); %Lymphocytes 15.7 % (21.0-51.0); %Monocytes 8.4 % (0.0-10.0); %Neutrophils 74.7 % (42.0-75.0); Hemoglobin 8.1 g/dL (12.0-16.0); Mean Corpuscular HGB CONC 30.9 g/dL (32.0-36.0); Mean Corpuscular Hemoglobin 26.8 pg (27.0-31.0); Mean Corpuscular Volume 86.6 fl (81.0-99.0); Mean Platelet Volume 7.7 fL (7.4-10.4); Platelet Count 240 thou/uL (130-400); RBC Distribution Width 15.6 % (11.5-14.5); Red Blood Cell (RBC) Count 3.04 mill/uL (4.20-5.40); White Blood Cell (WBC) Count 5.4 thou/uL (4.8-10.8)
[2017-06-25] MEDS: cefTRIAXone\\ROCEPHIN 1 GM, Syringe 0.4 ML in Sterile Water 9.6 ML SLOW IVP SCH (08:33)
[2017-06-25] MEDS: Furosemide 100 MG/10 ML VIAL SLOW IVP SCH (08:33)
[2017-06-25] MEDS: Spironolactone 25 MG TAB PO SCH (08:34)
[2017-06-25] MEDS: Ferrous Sulfate 325 MG TAB PO SCH (08:34)
[2017-06-25] MEDS: hydrALAZINE 25 MG TAB PO SCH ×3 (08:34→20:02)
[2017-06-25] MEDS: Aspirin 81 mg Enteric Coated Tablet PO SCH (08:36)
[2017-06-25] MEDS: Rosuvastatin 10 MG TAB PO SCH (08:36)
[2017-06-25] MEDS: Potassium Chloride 10 MEQ TAB PO SCH ×2 (08:36→15:32)
[2017-06-25] MEDS: Docusate 100 MG CAP PO SCH ×2 (08:37→20:45)
[2017-06-25] MEDS: Amlodipine 5 MG TAB PO SCH (08:41)
--- NOTE | 2017-06-25 09:19 | PRG ---
DATE OF SERVICE: 06/25/2017 SUBJECTIVE: Ms. Berman is sitting up in the chair. She is awake and alert, no complaints. PHYSICAL EXAMINATION: VITAL SIGNS: Her blood pressure was in the 170-180 range. She has to be restarted on intravenous nicardipine. LUNGS: Clear. CARDIAC: Normal S1, normal S2. ABDOMEN: Soft, nontender. EXTREMITIES: No edema. ASSESSMENT: Hypertension, labile. PLAN: 1. Increase amlodipine to 10 mg a day. 2. Try to wean her off the nicardipine intravenously. Dr. Kang to resume tomorrow. ALBERTO
--- NOTE | 2017-06-25 09:41 | PRG ---
DATE OF SERVICE: 06/25/2017 SUBJECTIVE: The patient is doing reasonably well. She has been on and off the Cardene drip over the last 12 hours. OBJECTIVE: VITAL SIGNS: Temperature 98.0, pulse 89, blood pressure 140/74. A 24-hour intake 1895, output 2205. HEENT: Unremarkable. NECK: No JVD. LUNGS: Fairly clear without wheezing or rhonchi. CARDIAC: S1, S2 regular without murmur. ABDOMEN: Soft, nontender. EXTREMITIES: No obvious edema. IMAGING: Chest x-ray yesterday showed pulmonary edema. LABORATORY DATA: White blood cell count 5.4, hematocrit 26.3, platelet count 240. Sodium 149, potas sium 3.4, chloride 106, CO2 33, BUN 68, creatinine 2.1, glucose 110. ASSESSMENT: 1. Diastolic cardiac dysfunction with pulmonary edema. 2. Generalized failure to thrive 3. Chronic kidney disease. PLAN: 1. Replace potassium. 2. Hopefully, we can hold her off the Cardene drip today. She is now able take oral medications. 3. She is scheduled potassium, written for this morning. 4. Continue low dose steroids.
--- NOTE | 2017-06-25 10:14 | PRG ---
DATE OF SERVICE: 06/25/2017 RENAL MEDICINE SUBJECTIVE: Ms. Berman is a 77-year-old white female being followed up for her chronic renal fail ure and labile hypertension. She is off of her IV Cardene drip. Recently, the Norvasc has been incr eased by Cardiology to 10 mg twice a day. We are continuing her current antihypertensive regimen. T here is an issue whether she may be aspirating. Shortness of breath has a little improved today. Zainab garces also continues to be on IV diuretics for CHF from her diastolic dysfunction. No other complaints t chuck. PHYSICAL EXAMINATION: VITAL SIGNS: Blood pressure is 135/71, heart rate 90, respiratory rate 18, pulse ox 97%. GENERAL: Noted to be awake, sitting comfortable, not in overt distress. SKIN: Adequate turgor. HEENT: She has slightly pale conjunctivae, anicteric sclerae. NECK: No neck mass, no carotid bruits, no JVD. CHEST: No deformities. LUNGS: Decreased breath sounds. HEART: Normal sinus rhythm. No murmurs, no gallops, no rubs. ABDOMEN: Globular, soft, nontender, no masses. EXTREMITIES: No edema, no deformities. MEDICATIONS: Medications of 06/25/2017 reviewed. LABORATORY DATA: Laboratories of 06/25/2017; white count 5.4, hemoglobin 8.1, hematocrit 26.3. Sodi um 149, potassium 3.4, chloride 106, carbon dioxide 33, BUN 68, creatinine 2.14, glucose 110, calcium 9.2, AST 20, and ALT 14. ASSESSMENT AND PLAN: 1. Shortness of breath - secondary to congestive heart failure from diastolic dysfunction on IV diur etics. Continue current diuretic regimen. Adjust medications as needed. Chronic renal failure - se condary to hypertensive nephropathy, stable renal function. So far tolerating current diuretic regim en. 2. Labile hypertension, currently on antihypertensive regimen. Amlodipine/Norvasc increased to 10 m g twice a day. Continuing clonidine patch and Aldomet as well as spironolactone. 4. ? aspiration pneumonia - conservative management. The patient is not a candidate for PEG tube pl acement. 5. Anemia, continuing weekly Epogen. Recheck basic metabolic panel and CBC in a.m. 6. Mild hypernatremia. Continue to encourage to increase free water intake.
[2017-06-25] MEDS: Insulin Regular 300 UNITS/3 ML VIAL SC PRN (11:10)
--- NOTE | 2017-06-25 15:44 | PRG ---
DATE OF SERVICE: 06/25/2017 This is JOSHUA Barkley dictating a progress note for Amando Hartman M.D SUBJECTIVE: The patient had a good night. She got family at bedside. She is drinking and eating pu estephanie diet; however, she is coughing. She has been on Cardene drip and this has been turned on and of f last 24 hour secondary to uncontrolled blood pressure. PHYSICAL EXAMINATION: VITAL SIGNS: Now her blood pressure 150/80, heart rate 80. She is afebrile. NECK: Supple. No increased JVP or carotid bruit. Carotid had good upstroke and thyromegaly. COR: Regular rate and rhythm. CHEST: Symmetrical. Clear to auscultation and percussion in upper lobes. ABDOMEN: Soft, nontender, normoactive bowel sounds. There is no bruit or organomegaly. EXTREMITIES: No edema or cyanosis. She had palpable pedal pulses. SKIN: There is no evidence of ulcer, lesion, or rash. NEUROLOGIC: She is awake, alert, and oriented to person, place, and time. LABORATORY DATA: Her potassium is 3.4, BUN 68, creatinine 2.14. ASSESSMENT: 1. Congestive heart failure. 2. Chronic obstructive pulmonary disease. 3. Epistaxis, resolved. 4. Hypertension, uncontrolled. 5. Diabetes. 6. Deconditioning 7. Hypokalemia. 8. Multiple medical problems. PLAN: The patient will have potassium replenished again. Also, we will follow up with lab in the mo rning. We will also need to find out from Dr. Hartman who she got the hospital bed through as the tim ent wants an inflatable mattress for skin protectant to go on top of that. The family will be here t omorrow in the waiting room at 6 in the morning for Dr. Hartman. I can talk to them. The patient kevin amaya wants to go home. Everything is set up with the family and the family will be taking care of the p atient.
[2017-06-25] MEDS: Famotidine 20 MG TAB PO SCH (20:02)
[2017-06-26] MEDS: ALPRAZolam 0.25 MG TAB PO PRN ×2 (02:36→08:43)
[2017-06-26] MEDS: cloNIDine 0.1 MG TAB PO PRN (02:36)
[2017-06-26] MEDS: niCARdipine HCl 25 MG in Sodium Chloride 0.9% 250 ML 240 ML IVPB SCH (03:12)
[2017-06-26] MEDS ORDERED: Morphine 4 MG/ML VIAL ONE (07:58)
[2017-06-26] MEDS: Potassium Chloride 10 MEQ TAB PO SCH ×3 (08:14→17:54)
[2017-06-26] MEDS: Spironolactone 25 MG TAB PO SCH (08:14)
[2017-06-26] MEDS: Amlodipine 5 MG TAB PO SCH (08:14)
[2017-06-26] MEDS: Aspirin 81 mg Enteric Coated Tablet PO SCH (08:15)
[2017-06-26] MEDS: Docusate 100 MG CAP PO SCH ×2 (08:15→21:32)
[2017-06-26] MEDS: Furosemide 100 MG/10 ML VIAL SLOW IVP SCH (08:15)
[2017-06-26] MEDS: Ferrous Sulfate 325 MG TAB PO SCH (08:15)
[2017-06-26] MEDS: Rosuvastatin 10 MG TAB PO SCH (08:16)
[2017-06-26] MEDS: cefTRIAXone\\ROCEPHIN 1 GM, Syringe 0.4 ML in Sterile Water 9.6 ML SLOW IVP SCH (08:22)
[2017-06-26] MEDS: hydrALAZINE 25 MG TAB PO SCH ×3 (08:27→21:33)
--- NOTE | 2017-06-26 09:07 | PRG ---
DATE OF SERVICE: 06/25/2017 RENAL MEDICINE SUBJECTIVE: Ms. Berman is a 77-year-old white female being followed by the Renal Service for her chronic renal failure and labile hypertension. She has been placed on Cardene drip which has improve d her blood pressure. We continued to maintain her on her regular oral antihypertensive regimen as w ell as on the clonidine patch. Overnight, patient has been needing increased oxygenation. She remains unimproved over the last several days. PHYSICAL EXAMINATION: VITAL SIGNS: Blood pressure is 147/69, heart rate 96, respiratory rate 15. GENERAL: The patient is awake and currently on a Venturi mask, not in overt distress. SKIN: Adequate turgor. HEENT: She has slightly pale conjunctivae, anicteric sclerae. NECK: No neck mass, no carotid bruits, no JVD. CHEST: No deformities. LUNGS: Decreased breath sounds. No wheezing. HEART: Normal sinus rhythm. No murmur, no gallops, no rubs. ABDOMEN: Globular, soft, nontender, no masses. EXTREMITIES: No edema. MEDICATIONS: Medications of 06/26/2017 reviewed. LABORATORY DATA: Laboratories of 06/25/2017, white count 5.4, hemoglobin 8.1. On 06/25/2017, sodium 149, potassium 3.4, chloride 106, carbon dioxide 33, BUN 60, creatinine 2.14, calcium 9.2. On 06/26, glucose 114. ASSESSMENT AND PLAN: 1. Chronic renal failure, stable. No indication for any dialytic intervention. Continue current di uretic regimen. 2. Shortness of breath - multifactorial. The patient has severe chronic obstructive pulmonary disea se and underlying congestive heart failure. She is currently being diuresed. FIO2 supplementation h as been adjusted. 3. Overall prognosis remains poor with this patient. Continuing supportive care. 4. Labile hypertension - Cardene being weaned off. Continue current oral antihypertensive regimen a nd clonidine patch.
[2017-06-26] MEDS: ALPRAZolam 0.25 MG TAB PO SCH ×3 (09:41→21:31)
[2017-06-26] MEDS: Morphine 4 MG/ML VIAL SLOW IVP PRN (09:41)
[2017-06-26 09:47] LABS: #Lymphocytes 0.8 thou/uL (1.20-3.40); #Monocytes 0.5 thou/uL (0.11-0.59); #Neutrophils 5.5 thou/uL (1.40-6.50); %Basophils 0.2 % (0.0-1.0); %Eosinophils 0.4 % (0.0-10.0); %Lymphocytes 11.6 % (21.0-51.0); %Monocytes 7.5 % (0.0-10.0); %Neutrophils 80.3 % (42.0-75.0); Hemoglobin 8.2 g/dL (12.0-16.0); Mean Corpuscular HGB CONC 31.3 g/dL (32.0-36.0); Mean Corpuscular Hemoglobin 26.8 pg (27.0-31.0); Mean Corpuscular Volume 85.9 fl (81.0-99.0); Mean Platelet Volume 7.5 fL (7.4-10.4); Platelet Count 221 thou/uL (130-400); RBC Distribution Width 15.2 % (11.5-14.5); Red Blood Cell (RBC) Count 3.07 mill/uL (4.20-5.40); White Blood Cell (WBC) Count 6.9 thou/uL (4.8-10.8)
[2017-06-26 10:01] LABS: ALT (SGPT) 22 U/L (8-55); AST (SGOT) 29 U/L (5-34); Albumin 3.4 g/dL (3.4-4.8); Alkaline Phosphatase 85 U/L (40-150); Anion Gap 12 mmol/L (10-20); BUN (Urea Nitrogen) 74 mg/dL (9.8-20.1); Bilirubin, Total 0.4 mg/dL (0.2-1.2); Calc. Creatinine Clearance 23 mL/min (70-130); Calcium 9.2 mg/dL (7.8-10.44); Carbon Dioxide 34 mmol/L (23-31); Chloride 105 mmol/L (98-107); Estimated GFR-MDRD 24; Globulin 2.8 g/dL (2.4-3.5); Glucose 130 mg/dL (83-110); Potassium 3.5 mmol/L (3.5-5.1); Protein, Total 6.2 g/dL (6.0-8.3); Sodium 147 mmol/L (136-145)
--- NOTE | 2017-06-26 15:05 | PRG ---
DATE OF SERVICE: 06/26/2017 SUBJECTIVE: and standing in the room this morning she seems to be short of breath. Drew ring is not willing to get hospice involved and try to get her home. She told them, she decided and fabiola garces wants to go home. OBJECTIVE: VITAL SIGNS: She is afebrile. Blood pressure 120/67, heart rate 78, respiratory rate 16, oximetry 9 5%. LUNGS: Still marked crackles at her bases. HEART: Regular rhythm. ABDOMEN: Soft. LABORATORY: White count 6.9, hemoglobin 8.2, platelets 221. Creatinine is 2.05, BUN 74. Intake and output is negative 182. Somehow yesterday she had 1895 mL in. IMPRESSION: Diastolic dysfunction with mitral regurgitation and chronic kidney disease. Decondition ing is the biggest factor at this point. Hospice has been consulted.
--- NOTE | 2017-06-26 15:12 | PDOC.CTH ---
Cardiology Progress Note - Subjective The pt seen and examined. No overnight events. No cardiac complaints. She swallows PO med with apple sauce without coughing. - Objective Vital Signs Temp Pulse Resp BP Pulse Ox 06/26/17 14:51 150/86 H 06/26/17 14:50 82 150/88 H 06/26/17 14:29 82 21 H 96 06/26/17 12:00 97.6 F 06/26/17 10:38 75 17 94 L 06/26/17 08:27 88 147/69 H 06/26/17 08:22 147/69 H 06/26/17 08:14 96 147/69 H 06/26/17 08:13 95 06/26/17 08:10 96 28 H 95 06/26/17 08:00 97.5 F L 99 38 H 94 L Weight 140 lb 6.951 oz 06/25/17 06/26/17 06/27/17 06:59 06:59 06:59 Intake Total 1895 2822.9 110 Output Total 2205 3005 605 Balance -310 -182.1 -495 - Physical Examination General/Neuro: alert & oriented x3 Neck: no JVD present Lungs: CTA (diminished at bases) Heart: RRR Abdomen: soft Extremities: other: (No edemas) - Telemetry Telemetry Rhythm: SR 80s - Labs Result Diagrams: 06/26/17 08:55 06/26/17 08:55 Troponin/CKMB Troponin I 0.028 ng/mL (< 0.028) 06/20/17 01:01 - Assessment/Plan 1. Acute on Chronic diastolic HF - Stable with Lasix 80mg IV daily and Spironodactone 25mg daily; Not on BBlocker due to HX of severe COPD. Not on BROOKE due to Hx of CKD. 2. Severe COPD - Stable with 4LNC; managed by room service supervisor 3. HTN - BP still elevated but reasonable for her 4. CKD - slightly improving today. managed by community recreation coordinator 5. Anemia - slightly improving today; on Epogen qwk. 6. CAD with hx of CABG in 2007- stable and cont. to monitor on tele; She is not good candidate for C due to hx of severe COPD, Anemia, and CKD. 7. DM type 2 - stable; managed by PCP 8. Disphargia - stable with PO; no PEG tube placement. Plan to go home with Hospice. MAR Review of Systems - Review of Systems Constitutional: reports: weakness EENTM: reports: no symptoms reported Respiratory: reports: no symptoms reported Cardiac (ROS): reports: no symptoms reported ABD/GI: reports: no symptoms reported : reports: no symptoms reported Musculoskeletal: reports: no symptoms reported
[2017-06-26] MEDS: Insulin Regular 300 UNITS/3 ML VIAL SC PRN ×2 (18:03→21:39)
[2017-06-26] MEDS: Famotidine 20 MG TAB PO SCH (21:32)
[2017-06-27] MEDS: Morphine 4 MG/ML VIAL SLOW IVP PRN ×4 (01:07→15:56)
[2017-06-27] MEDS: ALPRAZolam 0.25 MG TAB PO SCH ×2 (08:30→14:31)
[2017-06-27] MEDS: Amlodipine 5 MG TAB PO SCH (08:31)
[2017-06-27] MEDS: hydrALAZINE 25 MG TAB PO SCH ×2 (08:33→14:29)
[2017-06-27] MEDS: Spironolactone 25 MG TAB PO SCH (08:35)
[2017-06-27] MEDS: Aspirin 81 mg Enteric Coated Tablet PO SCH (08:35)
[2017-06-27] MEDS: Ferrous Sulfate 325 MG TAB PO SCH (08:36)
[2017-06-27] MEDS: Potassium Chloride 10 MEQ TAB PO SCH ×3 (08:37→14:28)
--- NOTE | 2017-06-27 08:37 | PDOC.CTH ---
<Danii De Paz - Last Filed: 06/27/17 08:36> Cardiology Progress Note - Subjective The pt seen and examined. No cardiac complaints. Per family, she had morphine last night to make her calm. She stated she has good appetite this AM. Complains of fatigue. - Objective Vital Signs Temp Pulse Resp BP BP Pulse Ox 06/27/17 07:50 97.6 F 73 22 H 183/88 H 95 06/27/17 06:07 85 20 93 L 06/26/17 21:33 83 162/74 H Weight 144 lb 11.2 oz 06/26/17 06/27/17 06/28/17 06:59 06:59 06:59 Intake Total 2822.9 655 Output Total 3005 2405 Balance -182.1 -1750 - Physical Examination General/Neuro: alert & oriented x3 Neck: no JVD present Lungs: other: (coarses and diminished at bases) Heart: RRR Abdomen: soft Extremities: other: (No edema) - Labs Result Diagrams: 06/26/17 08:55 06/26/17 08:55 Troponin/CKMB Troponin I 0.028 ng/mL (< 0.028) 06/20/17 01:01 - Assessment/Plan 1. Acute on Chronic diastolic HF - Stable with Lasix 80mg IV daily and Spironodactone 25mg daily; change Lasix to 40mg PO BID. Not on BBlocker due to HX of severe COPD. Not on BROOKE due to Hx of CKD. 2. Severe COPD - Stable with 4LNC; managed by hose stripper 3. HTN - BP still elevated but reasonable for her 4. CKD - Managed by financial health counselor 5. Anemia - on Epogen qwk. 6. CAD with hx of CABG in 2007- stable and cont. to monitor on tele; She is not good candidate for C due to hx of severe COPD, Anemia, and CKD. 7. DM type 2 - stable; managed by PCP 8. Disphargia - stable with PO; no PEG tube placement. Plan to go home with Hospice. MAR reviewed * Plan to d/c home with Hospice. Review of Systems - Review of Systems Constitutional: reports: see HPI EENTM: reports: see HPI Respiratory: reports: see HPI Cardiac (ROS): reports: see HPI ABD/GI: reports: see HPI : reports: see HPI <Kang,G Carlos - Last Filed: 06/27/17 10:40> Cardiology Progress Note - Objective Vital Signs Temp Pulse Resp BP BP Pulse Ox 06/27/17 10:05 73 22 H 95 06/27/17 08:39 183/88 H 06/27/17 08:33 73 183/88 H 06/27/17 08:31 73 183/88 H 06/27/17 08:00 97.5 F L 73 22 H 95 06/27/17 07:50 97.6 F 73 22 H 183/88 H 95 06/27/17 06:07 85 20 93 L Weight 144 lb 11.2 oz 06/26/17 06/27/17 06/28/17 06:59 06:59 06:59 Intake Total 2822.9 655 Output Total 3005 2405 Balance -182.1 -1750 - Labs Result Diagrams: 06/26/17 08:55 06/26/17 08:55 Troponin/CKMB Troponin I 0.028 ng/mL (< 0.028) 06/20/17 01:01 - Assessment/Plan Pt. seen and eval. by me. She is resting comfortably at this time. I agree with the A/P by the [employer] TRUCK DRIVER. Chest: bibasilar rales. RRR. edema improved. Pt. should be going home today on hospice.
[2017-06-27] MEDS: Rosuvastatin 10 MG TAB PO SCH (08:38)
[2017-06-27] MEDS: Docusate 100 MG CAP PO SCH (08:39)
--- NOTE | 2017-06-27 09:16 | PRG ---
DATE OF SERVICE: 06/27/2017 SUBJECTIVE: The patient is not coughing as much, she was eating now. Her daughter is at bedside and made a decision to go with hospice. They want her Wisdom out before she goes. OBJECTIVE: VITAL SIGNS: Blood pressure was high this morning at 180/80, pulse 70, respiration 20, temperature 9 7.6. NECK: Supple with no increased JVP or carotid bruit. Carotids had good upstroke, no thyromegaly. COR: Regular rate and rhythm. CHEST: Scattered rhonchi and wheezing. ABDOMEN: Soft, nontender with normoactive bowel sounds. There is no bruit or organomegaly. EXTREMITIES: No edema or cyanosis. She had palpable pedal pulses. SKIN: There is no evidence of ulcer, lesion or rash. NEUROLOGIC: She is awake, alert, and oriented to person, place, and time. ASSESSMENT: 1. Congestive heart failure. 2. Chronic obstructive pulmonary disease. 3. Chronic kidney disease. 4. Hypertension. 5. Deconditioned. 6. Multiple medical problems. PLAN: The patient has a poor prognosis. I talked to the daughter, they are going to take her home w [facility]. We will give her pain medication control via hospice. We will also discontinue the Fol ey and IV before she leaves today. The patient verbalized understanding as well as the daughter and all questions answered to their satisfaction.
[2017-06-27] MEDS: Furosemide 100 MG/10 ML VIAL SLOW IVP SCH (09:22)
[2017-06-27] MEDS: cefTRIAXone\\ROCEPHIN 1 GM, Syringe 0.4 ML in Sterile Water 9.6 ML SLOW IVP SCH (09:24)
[2017-06-27] MEDS: Epoetin (ESRD) 20,000 UNITS/ML SC SCH (10:42)
--- NOTE | 2017-06-27 13:13 | PRG ---
DATE OF SERVICE: 06/27/2017 SUBJECTIVE: Ms. Berman looks better now than she looked this morning. Apparently, she was quite dyspneic over this morning. We are trying to get her home with hospice. OBJECTIVE: VITAL SIGNS: She is afebrile, heart rate 73, blood pressure 183/88, oximetry is 95 on 4 liters nasal cannula. LUNGS: Clear with exception of crackles at both bases with decreased breath sounds consistent with h er effusions. HEART: Regular rhythm, no S3, murmur is unchanged. ABDOMEN: Soft and nontender. LABORATORY DATA: No new lab today other than glucose checks. IMPRESSION: 1. Congestive heart failure, clinically improved, but intermittently quite dyspneic. I suspect this occurs when her blood pressure goes up significantly 2. Chronic obstructive pulmonary disease, clinically stable. She will be converted to 20 mg a day o f prednisone. She might do better with a bigger dose of Lasix by mouth in the morning and 40 mg give n that she has renal insufficiency. We will sign off.
[2017-06-27] MEDS ORDERED: Furosemide 40 MG TAB PO SCH (14:00)
[2017-06-27 14:40] VITALS: BP 153/71
[2017-06-27 15:01] VITALS: TEMP 97.7
[2017-06-28] MEDS ORDERED: predniSONE 20 MG TAB PO SCH (08:00)
== END 2017-06-27 18:20 | disposition hospice, home (50) | DRG 291 ==
LOC: ERS 15:50 → OBSVTOIN 22:07 → 2SW 22:07 → IMCU/EMU 06-21 02:03 → CCU 06-23 12:42 → T4-A 06-26 18:44
PROVIDERS: ADMIT Specialist; ATTEND Specialist
PROC: 30233N1 Transfusion of Nonautologous Red Blood Cells into Peripheral Vein, Percutaneous Approach (ICD-10-PCS; principal; 2017-06-20)
DX: I13.0 Hypertensive heart and chronic kidney disease with heart failure and stage 1 through stage 4 chronic kidney disease, or unspecified chronic kidney disease (principal); I50.33 Acute on chronic diastolic (congestive) heart failure; J96.01 Acute respiratory failure with hypoxia; E87.0 Hyperosmolality and hypernatremia; N17.9 Acute kidney failure, unspecified; N18.4 Chronic kidney disease, stage 4 (severe); J43.9 Emphysema, unspecified; R13.12 Dysphagia, oropharyngeal phase; E11.22 Type 2 diabetes mellitus with diabetic chronic kidney disease; E86.0 Dehydration; D63.1 Anemia in chronic kidney disease; I25.10 Atherosclerotic heart disease of native coronary artery without angina pectoris; Z95.1 Presence of aortocoronary bypass graft; R04.0 Epistaxis; Z87.891 Personal history of nicotine dependence; F32.9 Major depressive disorder, single episode, unspecified; F41.9 Anxiety disorder, unspecified; I34.0 Nonrheumatic mitral (valve) insufficiency; E87.6 Hypokalemia; R62.7 Adult failure to thrive; Z66 Do not resuscitate; K21.9 Gastro-esophageal reflux disease without esophagitis; M10.9 Gout, unspecified
CPT/HCPCS: 36415; 36416; 36430; 71045; 74176; 80048; 80053; 81003; 81015; 82274; 82728; 83540; 83550; 83690; 83880; 84484; 85007; 85025; 85027; 85610; 85730; 86850; 86900; 86901; 87086; 93005; 94640; 94660; 96374; A4216; G0283-GP; G8978-GP-CJ; G8978-GP-CN; G8979-GP-CH; G8979-GP-CK; G8996-GN-CL; G8997-GN-CI; J0696; J1815; J1940; J2250; J2270; J2370; J2920; J3010; J7050; J7620; J7644; P9016; Q0162; Q4081